=== PATIENT | male | born 1985 | race Caucasian/White ===

== ENCOUNTER 2020-06-07 17:00 | Outpatient (RCR) | payer MEDICAID, SELFPAY | END 2020-06-22 09:49 | disposition home or self-care (01) | LOC: HO.PTCHIC 17:00 | PROVIDERS: PCP Emergency Medicine; Visit Provider Emergency Medicine | DX: M25.561 Pain in right knee (principal); M25.551 Pain in right hip; G89.29 Other chronic pain | CPT/HCPCS: 97110; 97161 ==

== ENCOUNTER 2020-07-19 08:07 | Outpatient (REF) | payer MEDICAID, SELFPAY | END 2020-07-19 08:08 | disposition home or self-care (01) | LOC: HO.HOSX 08:07 | PROVIDERS: Visit Provider Orthopaedic Surgery | DX: Z13.89 Encounter for screening for other disorder (principal) ==

== ENCOUNTER 2020-08-02 08:27 | Outpatient (REF) | payer MEDICAID, SELFPAY ==
--- NOTE | ~2020-08-02 | XR_ITS ---
EXAMINATION: BILATERAL KNEE X-RAY CLINICAL INFORMATION: Pain COMPARISON: None TECHNIQUE: Standing AP view of both knees and lateral and sunrise view of the left knee FINDINGS: Left knee: Bone alignment is normal. No fracture or dislocation is seen. There is joint space narrowing at the medial femoral tibial joint. There is question of a subchondral lucency of the lateral aspect of the medial femoral condyle appreciated on the AP view only. There is a small joint effusion. Standing AP view of the right knee is unremarkable. XR/XR knee LT 2V IMPRESSION: Left knee: Medial femoral tibial joint space narrowing of the left knee. Question subchondral lucency of the lateral aspect of the medial femoral condyle. Unremarkable right knee.
--- NOTE | ~2020-08-02 | XR_ITS ---
EXAMINATION: BILATERAL KNEE X-RAY CLINICAL INFORMATION: Pain COMPARISON: None TECHNIQUE: Standing AP view of both knees and lateral and sunrise view of the left knee FINDINGS: Left knee: Bone alignment is normal. No fracture or dislocation is seen. There is joint space narrowing at the medial femoral tibial joint. There is question of a subchondral lucency of the lateral aspect of the medial femoral condyle appreciated on the AP view only. There is a small joint effusion. Standing AP view of the right knee is unremarkable. XR/XR knee standing BI IMPRESSION: Left knee: Medial femoral tibial joint space narrowing of the left knee. Question subchondral lucency of the lateral aspect of the medial femoral condyle. Unremarkable right knee.
== END 2020-08-02 08:28 | disposition home or self-care (01) ==
LOC: HO.HOSX 08:27
PROVIDERS: Visit Provider Orthopaedic Surgery
DX: M23.92 Unspecified internal derangement of left knee (principal)
CPT/HCPCS: 73560; 73565; 99202

== ENCOUNTER 2020-08-07 07:37 | Outpatient (REF) | payer MEDICAID, SELFPAY ==
--- NOTE | ~2020-08-07 | MR_ITS ---
EXAMINATION: MR KNEE WITHOUT CONTRAST, LEFT CLINICAL INFORMATION: Internal derangement of the left knee. Left knee medial pain. Clicking. Increased symptoms last 3-4 months. COMPARISON: Radiographs dated 08/02/2020. TECHNIQUE: MRI of the knee without contrast was performed using routine sequences on a high-field scanner. FINDINGS: MENISCI: Medial Meniscus: A complex flap tear propagates from the posterior root insertion through the anterior horn and is primarily longitudinal in orientation with displacement of the meniscal flap fragment peripherally and proximally, potentially a bucket-handle tear with peripheral displacement instead of lateral displacement. This flap fragment constitutes at least one half of the overall meniscal tissue. There is a superimposed horizontal tear of the orthotopic meniscal tissue at the posterior horn. Significant free edge fraying is present at the meniscal body and anterior horn. Surrounding soft tissues are edematous. A small multilocular parameniscal cyst is present at the meniscal body just deep to the MCL. Lateral Meniscus: Mild undersurface fraying is present of the posterior horn near the root insertion. No tears. LIGAMENTS: Cruciate: Intact Collateral: Edema signal around the MCL is likely reactive to the underlying meniscal abnormality. Collateral ligaments are intact. EXTENSOR MECHANISM:Intact ARTICULAR CARTILAGE/BONE: Patellofemoral Compartment: Minimal superficial chondral fissuring at the median ridge of the patella. Trochlear cartilage appears relatively well preserved. Medial Compartment Small to moderate-sized marginal osteophytes are present at the medial compartment. There is docw-or-zlbeiovs nonuniform articular cartilage loss at the medial half of the medial tibial plateau with more mild chondral thinning at the medial femoral condyle. Lateral Compartment: Tiny marginal osteophytes. Articular cartilage is normal. JOINT FLUID AND BURSAE: Trace joint fluid. No Funk's cyst. MR/MR knee LT wo con IMPRESSION: 1. Complex displaced longitudinal flap tear involving the majority of the medial meniscus. 2. Ilot-kg-cmkgxddn medial compartment osteoarthritis. More minimal osteoarthritis in the patellofemoral and lateral compartments. 3. Trace joint effusion. 4. Undersurface fraying at the posterior root insertion of the lateral meniscus. No tears.
== END 2020-08-07 07:38 | disposition home or self-care (01) ==
LOC: HO.MRI 07:37
PROVIDERS: Visit Provider Orthopaedic Surgery
DX: M23.92 Unspecified internal derangement of left knee (principal)
CPT/HCPCS: 73721

== ENCOUNTER → 2020-08-20 08:16 | Outpatient (BNVA) | payer MEDICAID, SELFPAY | PROVIDERS: PCP Internal Medicine; Visit Provider Orthopaedic Surgery | DX: S83.242A Other tear of medial meniscus, current injury, left knee, initial encounter (principal) | CPT/HCPCS: 99212 ==

== ENCOUNTER 2020-09-05 06:06 | Day surgery (SDC) | payer MEDICAID, SELFPAY ==
[2020-08-30 11:00] VITALS: BMI 44.6
--- NOTE | 2020-09-04 12:58 | HO.ANESPROP2 ---
Documented by User: Landy Rmney 09/04/20 12:59 HPI - Anesthesia Eval Consult details Narrative: 35yo M for Left Knee Arthroscopy PMFSH Past Medical History Medical History Depression Sleep apnea Family History Family History Mother No problems noted. Father No problems noted. Surgical History Surgical History History of tonsillectomy Hx of cholecystectomy Social History Social History Are you a primary client care manager to a significant other at home: No Do you presently have visiting nurse or other home services: No Alcohol intake: current Alcohol intake frequency: a few times a month Smoking Status: Never smoker Use of substances other than those prescribed or required for medical reasons: No Have you been hit, kicked, punched, or otherwise hurt by someone within the past year? If so, by whom?: No Advance Directives Information Provided: No Risk Factors Comment: has had past thoughts of harming self-states current medications help-advised to speak with PCP if feeling that medications do not help and encouraged to seek help JUAN for any new feelings. 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[employer] Allergies Allergy/AdvReac Type Severity Reaction Status Date / Time clindamycin [CLINDAMYCIN] Allergy Intermediate SWELLING Verified 08/30/20 11:06 Home Medications Medication Instructions Recorded Confirmed Last Taken Type cyanocobalamin (vitamin B-12) 2,500 mcg SUBLINGUAL DAILY 08/30/20 08/30/20 Unknown History [Vitamin B-12] hydroxyzine pamoate 50 mg PO BEDTIME 08/30/20 08/30/20 Unknown History multivitamin 1 tab PO DAILY 08/30/20 08/30/20 Unknown History nabumetone 750 mg PO BID 08/30/20 08/30/20 Unknown History trazodone 50 mg PO BID 08/30/20 08/30/20 Unknown History Exam Exam Date and Time: September 04, 2020 1258 Height,Weight and Vital Signs: Height 5 ft 7 in Weight 129.274 kg Assessment and Plan Assessment Anesthesia Assessment: Chart Reviewed Documented by User: Praful Shannon MD 09/05/20 08:06 [facility] Past Medical History Medical History Depression Sleep apnea Family History Family History Mother No problems noted. Father No problems noted. Surgical History Surgical History History of tonsillectomy Hx of cholecystectomy Social History Social History Are you a primary client care manager to a significant other at home: No Do you presently have visiting nurse or other home services: No Alcohol intake: current Alcohol intake frequency: a few times a month Smoking Status: Never smoker Use of substances other than those prescribed or required for medical reasons: No Have you been hit, kicked, punched, or otherwise hurt by someone within the past year? If so, by whom?: No Advance Directives Information Provided: No Risk Factors Comment: has had past thoughts of harming self-states current medications help-advised to speak with PCP if feeling that medications do not help and encouraged to seek help JUAN for any new feelings. 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[employer] Allergies Allergy/AdvReac Type Severity Reaction Status Date / Time clindamycin [CLINDAMYCIN] Allergy Intermediate SWELLING Verified 08/30/20 11:06 Home Medications Medication Instructions Recorded Confirmed Last Taken Type cyanocobalamin (vitamin B-12) 2,500 mcg SUBLINGUAL DAILY 08/30/20 08/30/20 Unknown History [Vitamin B-12] hydroxyzine pamoate 50 mg PO BEDTIME 08/30/20 08/30/20 Unknown History multivitamin 1 tab PO DAILY 08/30/20 08/30/20 Unknown History nabumetone 750 mg PO BID 08/30/20 08/30/20 Unknown History trazodone 50 mg PO BID 08/30/20 08/30/20 Unknown History Exam Airway Mallampati Class: III TM Dist: >3cm Neck ROM: Full Loose/Missing/Broken Teeth: No Heart: RRR Lungs: NL Assessment and Plan Assessment Anesthesia Assessment: Anesthesia Plan Discussed and Chart Reviewed Final Anesthetic Review NPO: Yes ASA Class: III Final Preanesthetic Review: No Changes in Pt Med Stat, Meds/Allgs Chart Reviewed, Consent Obtained/Reviewed and Anes Risks/Benef Reviewed Patient Risk: High Procedure Risk: Low Anesthetic Plan Anesthetic Plan: GA Disposition: Standard PACU
[2020-09-05] VITALS (16 sets, daily range): BP systolic 135–174; BP diastolic 57–104; PULSE 17–95; RESP 16–20; TEMP 36.5–36.8; O2SAT 95–100
[2020-09-05] MEDS: Lactated Ringers 1,000 ML 100 ML IVCONT (06:38)
--- NOTE | 2020-09-05 07:36 | MHC.SHP ---
Pre-Procedural Eval Section A The patient is an INPATIENT: No Changes since office visit: Yes Patient answered all questions; No Cold of Flu in the past 2 weeks, No New Medical Problems and No Changes in Medication The History & Physical has been completed within 30 days and I have reviewed it.: Yes Section B Chief Complaint: internal derangement of left knee Allergies: Allergies Allergy/AdvReac Type Severity Reaction Status Date / Time clindamycin [CLINDAMYCIN] Allergy Intermediate SWELLING Verified 08/30/20 11:06 Plan I have reviewed the history and physical and performed a pertinent physical examination on my patient. No changes have occurred unless specified.
--- NOTE | 2020-09-05 09:16 | P.BOP_ITS ---
Brief Operative Note Date of Service: 09/05/20 Pre-op diagnosis: left knee meniscal tear Post-op diagnosis: other (left knee bucket handle medial meniscus tear) Procedure: Left knee medial meniscus repair Implants: S&N fastfix 360 x3, Arthrex meniscal cinch x3 Surgeon: Jason Quintero MD Anesthesia: GETA and local Criminology Professor: Elzbieta Alcaraz Estimated blood loss (mL): 5 Tourniquet time (min): 58 IV fluids (mL): 1,000 Pathology: none sent Condition: stable Disposition: PACU
--- NOTE | 2020-09-05 09:19 | P.OP_ITS ---
Operative Note Operative Note Date of Service: 09/05/20 Narrative: Pre-op diagnosis: left knee meniscal tear Post-op diagnosis: other (left knee bucket handle medial meniscus tear) Procedure: Left knee medial meniscus repair Implants: S&N fastfix 360 x3, Arthrex meniscal cinch x3 Surgeon: Jason Quintero MD Anesthesia: GETA and local Emissions Repair Technician: Elzbieta Alcaraz Estimated blood loss (mL): 5 Tourniquet time (min): 58 IV fluids (mL): 1,000 Pathology: none sent Condition: stable Disposition: PACU Indications: THis is a 35 yo with a left medial meniscus tear. He was consented to undergo left knee arthroscopy. Procedure in detail: Patient was brought to the operating room placed supine on the arthroscopic table and prepped and draped in standard sterile fashion. A time-out was called to identify proper site proper procedure proper surgeon and IV antibiotics per weight were administered. I began by exsanguinating the limb and insufflating tourniquet to 300 mm Hg. Then made a standard anterolateral stab incision. knee was insufflated with water and 30 degree arthroscope was placed. There was one grade 2 area of cartilage damage in the central facet of the patella. The suprapatellar pouch was clean and the gutters were clean. I descended into the medial compartment where I made my medial portal under direct visualization. There was obvious of tear of the body and posterior horn of the medial meniscus that upon flexion displaced into the notch. This was bucket handle tear that was unstable. Because of his age I elected to repair it. It was reduceable. I used a shaver to debride the posterior edge of the plateau doown top bleeding bone. I then used 3 fast fix anchors and then 3 meniscal cinches to repair the meniscus. I was able to establish a good repair that was stable throughout a full arc of motion with reproduction of the meniscal anatomy. I used a combination of biter shaver and cautery to remove frayed portions of the meniscus. Once I was happy with this the ACL was examined and found to be intact and the lateral compartment also was without the need for intervention. I then removed all instrumentation and closed the portals with nylon sutures. 25 mL of 2% Marcaine with epinephrine was injected into the joint and the surrounding soft tissues. Patient was then placed in sterile dressing extubated brought recovery room stable condition. There were no known complications.
[2020-09-05] MEDS: HYDROmorphone HCl 0.5 MG/0.5 ML SYRINGE 0.25 MG IVPUSH ×2 (09:36→10:13)
[2020-09-05] MEDS: oxyCODONE HCl Immed Release 5 MG TABLET PO (10:08)
== END 2020-09-05 12:35 | disposition home or self-care (01) ==
PROVIDERS: PCP Internal Medicine; Visit Provider Orthopaedic Surgery
PROC: (CPT 29870; principal; 2020-09-05 07:30)
DX: S83.232A Complex tear of medial meniscus, current injury, left knee, initial encounter (principal); X58.XXXA Exposure to other specified factors, initial encounter; Y93.9 Activity, unspecified; Y92.9 Unspecified place or not applicable; Y99.8 Other external cause status; G47.30 Sleep apnea, unspecified; Z79.899 Other long term (current) drug therapy; Z88.1 Allergy status to other antibiotic agents
CPT/HCPCS: 29881; C1713; J0131; J0171; J0690; J1100; J1170; J1885; J2405; J3010

== ENCOUNTER → 2020-09-20 14:32 | Outpatient (BNVA) | payer MEDICAID, SELFPAY | PROVIDERS: Visit Provider Physician Assistant | DX: Z98.890 Other specified postprocedural states (principal) | CPT/HCPCS: 99212 ==

== ENCOUNTER → 2020-11-02 14:50 | Outpatient (BNVA) | payer MEDICAID, SELFPAY | PROVIDERS: Visit Provider Physician Assistant | DX: Z98.890 Other specified postprocedural states (principal) | CPT/HCPCS: 99212 ==

== ENCOUNTER 2020-12-12 17:00 | Outpatient (RCR) | payer MEDICAID, SELFPAY ==
--- NOTE | 2020-09-19 17:13 | MHC.PT.EP ---
[facility] [place] Office [place] Office [place] Office [address] Millie Rudolph [address] [phone] F: [phone] F: [phone] F: [phone] F: [phone] Physical Therapy Plan of Care Date of Evaluation: Date of Surgery: 09/05/20 Diagnosis: s/p L knee medial meniscus repair. Assessment: Frequency and Duration: The patient will be seen 2x/ wk x 6 wks. Short Term Goals: in 1 week: initiate HEP with evidence of compliance. In 3 week: full knee flexion achieved; initial 90 degrees. Custodial Goals: In 6 weeks: negotiated 1 fl of stairs with managed Sx. In 6 weeks: Pt will be able to walk 1 mile with managed Sx. In 6 weeks: improve L knee ext MMT to > 4+/5; initial: 4/5. Treatment Plan: Modalities to reduce pain, spasms and effusion. Manual therapy to restore motion and function. Therapeutic exercise to improve strength and flexibility. Neuromuscular re-education for posture and balance. Therapeutic activities to return to functional activities of daily living. Electronically signed by: Vivek Richard PT. Please sign and return to therapist. Thank you for your referral.
--- NOTE | 2021-01-29 18:22 | MHC.PT.DC ---
[facility] [place] Office [place] Office [place] Office [address] Millie Rudolph [address] [phone] F: [phone] F: [phone] F: [phone] F: [phone] Physical Therapy Discharge Report Diagnosis: s/p L knee medial meniscus repair. Date of Surgery: 09/05/20 Date of Evaluation: 09/19/20 Date of Discharge: 01/29/21 Treatments to Date: 13 Cancellations to Date: 2 No Shows to Date: 1 Discharge Status: Achieved Goals Improved Function Independent with HEP Discharge Summary: Electronically signed by: Vivek thomas PT. Please sign and return to therapist. Thank you for your referral.
== END 2021-01-29 18:24 | disposition home or self-care (01) ==
LOC: HO.PTCHIC 17:00
PROVIDERS: Visit Provider Physician Assistant
DX: Z98.890 Other specified postprocedural states (principal)
CPT/HCPCS: 97014; 97110; 97112; 97116; 97161; 97530

== ENCOUNTER → 2020-12-24 14:20 | Outpatient (BNVA) | payer MEDICAID, SELFPAY | PROVIDERS: Visit Provider Orthopaedic Surgery | DX: Z98.890 Other specified postprocedural states (principal) | CPT/HCPCS: 99212 ==

== ENCOUNTER → 2021-01-01 08:42 | Outpatient (BNVA) | payer MEDICAID, SELFPAY | PROVIDERS: PCP Internal Medicine; Visit Provider Psychiatry & Neurology Neurology | DX: G47.33 Obstructive sleep apnea (adult) (pediatric) (principal) | CPT/HCPCS: 99202 ==

== ENCOUNTER 2021-02-11 07:05 | Emergency (ER) | payer MEDICAID, SELFPAY ==
--- NOTE | 2021-02-11 | ECG_ITS ---
Test Reason : CP Blood Pressure : / mmHG Vent. Rate : 075 BPM Atrial Rate : 075 BPM P-R Int : 152 ms QRS Dur : 090 ms QT Int : 370 ms P-R-T Axes : 035 047 009 degrees QTc Int : 413 ms Normal sinus rhythm Normal ECG No previous ECGs available Referred By: Chery Garcia Electronically Signed By:MADY TERAN
--- NOTE | ~2021-02-11 | XR_ITS ---
EXAMINATION: XR CHEST CLINICAL INFORMATION: Chest pain COMPARISON: None TECHNIQUE: Frontal view of the chest was obtained. FINDINGS: The lungs are well-expanded and clear. The heart size and pulmonary vascularity is normal. No gross bony abnormality. XR/XR chest 1V IMPRESSION: Unremarkable chest exam.
[2021-02-11 09:29] VITALS: BP 124/91; PULSE 74; RESP 18; TEMP 36.4; O2SAT 96; BMI 45.4
[2021-02-11 14:11] LABS: MANUAL DIFF FLAG NO
[2021-02-11 14:14] LABS: Basophils Percent Auto 0.3 % (0-2); Eosinophils Absolute Auto 0.1 X10*3/uL (0.0-0.4); Hematocrit 45.5 % (42-52); Hemoglobin 14.7 g/dl (14.0-18.0); Imm Gran Abs Auto 0.04 X10*3/uL (0.00-0.03); Imm Gran Pct Auto 0.3 % (0.0-0.4); Lymphocytes Absolute Auto 3.7 X10*3/uL (1.2-4.9); Lymphocytes Percent Auto 32.1 % (20-40); Mean Corpuscular HGB Conc 32.3 g/dl (31.0-36.0); Mean Corpuscular Hemoglobin 26.9 pg (27.0-33.0); Mean Corpuscular Volume 83.2 fL (80-98); Mean Platelet Volume 10.1 fL (9.4-12.4); Monocytes Absolute Auto 0.8 X10*3/uL (0.1-1.2); Monocytes Percent Auto 6.7 % (2-11); Neutrophils Absolute Auto 6.9 X10*3/uL (2.0-8.3); Neutrophils Percent Auto 59.6 % (45-73); Platelet Count 291 X10*3/uL (160-400); Red Blood Count 5.47 X10*6/uL (4.60-5.80); Red Cell Distribution Width 13.2 % (11.0-16.0); White Blood Count 11.6 X10*3/uL (4.8-10.8)
[2021-02-11 14:38] LABS: Anion Gap 11 (12-20); Blood Urea Nitrogen 10 mg/dL (9-16); Calcium 9.9 mg/dL (8.4-10.2); Carbon Dioxide 31 mmol/L (22-29); Chloride 104 mmol/L (96-108); Creatinine Clr Calc Pharmacy 138.5; Estimated Glomerular Filt Rate > 60; Glucose Random 91 mg/dL (60-115); Potassium 4.5 mmol/L (3.3-5.1); Sodium 141 mmol/L (135-145)
[2021-02-11 14:45] LABS: Troponin-I High Sensitivity < 3.5 ng/L (<3.5-35.0)
[2021-02-11 16:02] VITALS: BP 148/76; PULSE 66; RESP 16; O2SAT 98
--- NOTE | 2021-02-11 16:04 | ED.CHESTPAIN ---
HPI - Chest Pain General Chief Complaint: Chest Pain Stated Complaint: CHEST PAIN Time Seen by Provider: 02/11/21 16:01 Related Data Home Medications Medication Instructions Recorded Confirmed cyanocobalamin (vitamin B-12) 2,500 mcg SUBLINGUAL DAILY 08/30/20 08/30/20 2,500 mcg sublingual tablet (Vitamin B-12) hydroxyzine pamoate 50 mg capsule 50 mg PO BEDTIME 08/30/20 08/30/20 multivitamin 1 tab PO DAILY 08/30/20 08/30/20 nabumetone 750 mg tablet 750 mg PO BID 08/30/20 08/30/20 trazodone 50 mg tablet 50 mg PO BID 08/30/20 08/30/20 Previous Rx's Medication Instructions Recorded naproxen 500 mg tablet,delayed 500 mg PO BID PRN 30 Days #60 tab 09/20/20 release (EC-Naprosyn) Allergies Allergy/AdvReac Type Severity Reaction Status Date / Time clindamycin [CLINDAMYCIN] Allergy Intermediate SWELLING Verified 01/01/21 08:49 [facility] Past Medical History Medical History Depression Sleep apnea Surgical History History of tonsillectomy Hx of cholecystectomy Family History Family History Mother No problems noted. Father No problems noted. 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 He reports the pain radiates to his left arm. Denies any other symptoms complaints or concerns at this time Patient had labs done in triage and all appear within normal limits. Therefore a 2nd troponin ordered at this time. Patient was sent back to the waiting room for further evaluation treatment to the main ED. MDM - Chest Pain Lab Data Result diagrams: 02/11/21 14:06 02/11/21 14:06 Labs: Lab Results 02/11/21 02/11/21 02/11/21 Range/Units 14:06 14:06 14:06 WBC 11.6 H (4.8-10.8) X10*3/uL RBC 5.47 (4.60-5.80) X10*6/uL Hgb 14.7 (14.0-18.0) g/dl Hct 45.5 (42-52) % MCV 83.2 (80-98) fL MCH 26.9 L (27.0-33.0) pg MCHC 32.3 (31.0-36.0) g/dl RDW 13.2 (11.0-16.0) % Plt Count 291 (160-400) X10*3/uL MPV 10.1 (9.4-12.4) fL Immature Gran % (Auto) 0.3 (0.0-0.4) % Neut % (Auto) 59.6 (45-73) % Lymph % (Auto) 32.1 (20-40) % Marshall % (Auto) 6.7 (2-11) % Eos % (Auto) 1.0 (0-4) % Baso % (Auto) 0.3 (0-2) % Lymph # (Auto) 3.7 (1.2-4.9) X10*3/uL Marshall # (Auto) 0.8 (0.1-1.2) X10*3/uL Eos # (Auto) 0.1 (0.0-0.4) X10*3/uL Baso # (Auto) 0.0 (0.0-0.2) X10*3/uL Abs Immat Gran (auto) 0.04 H (0.00-0.03) X10*3/uL Absolute Neuts (auto) 6.9 (2.0-8.3) X10*3/uL Absolute Nucleated RBC 0.000 (0.0-0.012) X10*3/uL Nucleated RBC % (auto) 0.0 (0.0-0.2) /100WBC Sodium 141 (135-145) mmol/L Potassium 4.5 (3.3-5.1) mmol/L Chloride 104 (96-108) mmol/L Carbon Dioxide 31 H (22-29) mmol/L Anion Gap 11 L (12-20) BUN 10 (9-16) mg/dL Creatinine 0.99 (0.5-1.4) mg/dL Estim Creat Clear Calc 138.5 Estimated GFR > 60 Random Glucose 91 (60-115) mg/dL Calcium 9.9 (8.4-10.2) mg/dL Troponin I High Sens < 3.5 (<3.5-35.0) ng/L Discharge Plan Discharge Clinical Impression: Chest pain Patient Disposition: Elopement Prescriptions: No Action multivitamin Tablet 1 tab PO DAILY RF: 0 cyanocobalamin (vitamin B-12) [Vitamin B-12] 2,500 mcg Tablet, Sublingual 2,500 mcg SUBLINGUAL DAILY RF: 0 nabumetone 750 mg Tablet 750 mg PO BID RF: 0 trazodone 50 mg Tablet 50 mg PO BID RF: 0 hydroxyzine pamoate 50 mg Capsule 50 mg PO BEDTIME RF: 0 naproxen [EC-Naprosyn] 500 mg tablet,delayed release (DR/EC) 500 mg PO BID PRN (Reason: pain) 30 Days Qty: 60 RF: 0 Discharge Date/Time: 02/11/21 17:08
== END 2021-02-11 17:08 | disposition left against medical advice (07) ==
PROVIDERS: Emergency Provider Emergency Medicine; PCP Internal Medicine
DX: R07.9 Chest pain, unspecified (principal); Z79.899 Other long term (current) drug therapy
CPT/HCPCS: 36415; 71045; 80048; 84484; 85025; 93005; 99283

== ENCOUNTER → 2021-04-04 14:33 | Outpatient (BNVA) | payer MEDICAID, SELFPAY | PROVIDERS: PCP Internal Medicine; Visit Provider Orthopaedic Surgery | DX: Z98.890 Other specified postprocedural states (principal) | CPT/HCPCS: 99212 ==

== ENCOUNTER → 2021-05-02 08:18 | Outpatient (BNVA) | payer MEDICAID, SELFPAY | PROVIDERS: PCP Internal Medicine; Visit Provider Orthopaedic Surgery | DX: Z98.890 Other specified postprocedural states (principal) | CPT/HCPCS: 99212 ==

== ENCOUNTER → 2021-07-28 20:35 | Outpatient (REF) | payer MEDICAID, SELFPAY | LOC: HO.SL 20:35 | PROVIDERS: PCP Internal Medicine; Visit Provider Internal Medicine | DX: G47.33 Obstructive sleep apnea (adult) (pediatric) (principal) | CPT/HCPCS: 95810 ==

== ENCOUNTER → 2021-08-21 14:59 | Outpatient (BNVA) | payer MEDICAID, SELFPAY | PROVIDERS: PCP Internal Medicine; Referring Provider Internal Medicine; Visit Provider Internal Medicine | DX: R07.2 Precordial pain (principal); R94.31 Abnormal electrocardiogram [ECG] [EKG] | CPT/HCPCS: 93005; 99202 ==

== ENCOUNTER → 2022-05-05 15:09 | Outpatient (BNVA) | payer MEDICAID, SELFPAY | PROVIDERS: PCP Internal Medicine; Visit Provider Physician Assistant Surgical | DX: Z11.0 Encounter for screening for intestinal infectious diseases (principal) | CPT/HCPCS: 99211 ==

== ENCOUNTER 2022-05-05 17:46 | Outpatient (REF) | payer MEDICAID, SELFPAY ==
[2022-05-06 15:24] LABS: H Pylori Breath Test Negative (Negative)
== END 2022-05-05 17:47 | disposition home or self-care (01) ==
LOC: HO.LNP 17:46
PROVIDERS: Visit Provider Surgery
DX: E66.01 Morbid (severe) obesity due to excess calories (principal); G47.33 Obstructive sleep apnea (adult) (pediatric); Z11.0 Encounter for screening for intestinal infectious diseases
CPT/HCPCS: 83013

== ENCOUNTER 2022-05-14 16:10 | Outpatient (REF) | payer MEDICAID, SELFPAY ==
--- NOTE | ~2022-05-14 | XR_ITS ---
EXAMINATION: XR CHEST CLINICAL INFORMATION: Obesity COMPARISON: Previous chest x-ray January 2021 TECHNIQUE: 2 views of the chest were obtained. FINDINGS: The cardiac and mediastinal contours are stable. There is slight elevation of the right hemidiaphragm that is stable. The lungs are clear. There is no pleural effusion or pneumothorax. Degenerative changes of the spine. XR/XR chest 2V IMPRESSION: No evidence for acute disease in the chest.
[2022-05-14 16:36] LABS: MANUAL DIFF FLAG NO
[2022-05-14 16:44] LABS: Basophils Percent Auto 0.4 % (0-2); Eosinophils Absolute Auto 0.1 X10*3/uL (0.0-0.4); Eosinophils Percent Auto 0.7 % (0-4); Hematocrit 44.5 % (42.0-52.0); Hemoglobin 14.4 g/dl (14.0-18.0); Imm Gran Abs Auto 0.02 X10*3/uL (0.00-0.03); Imm Gran Pct Auto 0.2 % (0.0-0.4); Lymphocytes Absolute Auto 2.2 X10*3/uL (1.2-4.9); Mean Corpuscular HGB Conc 32.4 g/dl (31.0-36.0); Mean Corpuscular Hemoglobin 27.1 pg (27.0-33.0); Mean Corpuscular Volume 83.6 fL (80.0-98.0); Mean Platelet Volume 10.4 fL (9.4-12.4); Monocytes Absolute Auto 0.6 X10*3/uL (0.1-1.2); Neutrophils Absolute Auto 5.3 x10*3/uL (2.0-8.3); Neutrophils Percent Auto 64.7 % (45-73); Platelet Count 284 X10*3/uL (160-400); Red Blood Count 5.32 X10*6/uL (4.60-5.80); Red Cell Distribution Width 13.1 % (11.0-16.0); White Blood Count 8.2 X10*3/uL (4.8-10.8)
[2022-05-14 17:15] LABS: Estimated Average Glucose 103 mg/dL; Hemoglobin A1c % 5.2 %
[2022-05-14 18:40] LABS: Alanine Aminotransferase 127 U/L (0-40); Albumin Level 4.9 g/dL (3.5-5.0); Alkaline Phosphatase 49 U/L (39-117); Anion Gap 14 (12-20); Aspartate Amino Transferase 62 U/L (5-37); Bilirubin Total 1.3 mg/dL (0.0-1.0); Blood Urea Nitrogen 12 mg/dL (9-16); C Reactive Protein 0.48 mg/dL (< or = 0.50); Calcium 9.7 mg/dL (8.4-10.2); Carbon Dioxide 27 mmol/L (22-29); Chloride 104 mmol/L (96-108); Cholesterol 131 mg/dL; Estimated Glomerular Filt Rate > 60; Ferritin 346 ng/mL (20-250); Glucose Random 96 mg/dL (60-115); HDL Cholesterol 27 mg/dL; Insulin 6 uU/mL (2-29); Iron 84 mcg/dL (45-160); LDL Cholesterol Calculated 90 mg/dl; Percent Iron Saturation 28 % (15-50); Potassium 4.4 mmol/L (3.3-5.1); Sodium 141 mmol/L (135-145); TSH reflex Free T4 1.31 uIU/mL (0.32-4.0); Total Iron Binding Capacity 295 mcg/dL (228-428); Total Protein 6.9 g/dL (6.5-8.0); Triglycerides 74 mg/dL; Unsaturated Iron Binding 211 ug/dL; Vitamin D 25-OH Total 13.4 ng/mL (>30)
[2022-05-14 18:54] LABS: Folate 14.6 ng/mL (> or = 4.0); Vitamin B12 606 pg/mL (200-900)
[2022-05-15 15:24] LABS: Calcium (PTHI) 9.5 mg/dL (8.6-10.3); PTHI 57 pg/mL (16-77)
[2022-05-20 02:09] LABS: Zinc 83 mcg/dL (60-130)
[2022-05-20 17:03] LABS: Vitamin A 43 mcg/dL (38-98)
[2022-05-24 14:48] LABS: Vitamin B1 8 nmol/L (8-30)
== END 2022-05-14 16:11 | disposition home or self-care (01) ==
LOC: HO.LAB 16:10
PROVIDERS: PCP Internal Medicine; Visit Provider Surgery
DX: E66.01 Morbid (severe) obesity due to excess calories (principal); G47.33 Obstructive sleep apnea (adult) (pediatric)
CPT/HCPCS: 36415; 71046; 80053; 80061; 82306; 82607; 82728; 82746; 83036; 83525; 83540; 83970; 84425; 84443; 84590; 84630; 85025; 86140

== ENCOUNTER → 2022-05-15 15:22 | Outpatient (REF) | payer MEDICAID, SELFPAY ==
--- NOTE | 2022-05-15 15:27 | ECG_ITS ---
Test Reason : Morbid Obesity Blood Pressure : / mmHG Vent. Rate : 076 BPM Atrial Rate : 076 BPM P-R Int : 144 ms QRS Dur : 082 ms QT Int : 366 ms P-R-T Axes : 043 060 019 degrees QTc Int : 411 ms Normal sinus rhythm Normal ECG When compared with ECG of 11-FEB-2021 07:16, No significant change was found Referred By: Aj Painting Electronically Signed By:LALO DIEZ
== END ==
LOC: HO.CARD 15:22
PROVIDERS: PCP Internal Medicine; Visit Provider Surgery
DX: E66.01 Morbid (severe) obesity due to excess calories (principal); G47.33 Obstructive sleep apnea (adult) (pediatric)
CPT/HCPCS: 93005

== ENCOUNTER → 2022-05-19 08:11 | Outpatient (BNVA) | payer MEDICAID, SELFPAY | PROVIDERS: PCP Internal Medicine; Visit Provider Surgery | DX: Z13.89 Encounter for screening for other disorder (principal) ==

== ENCOUNTER → 2022-06-20 08:26 | Outpatient (BNVA) | payer MEDICAID, SELFPAY | PROVIDERS: PCP Internal Medicine; Visit Provider Surgery | DX: Z13.89 Encounter for screening for other disorder (principal) ==

== ENCOUNTER 2023-01-15 11:22 | Outpatient (REF) | payer MEDICAID, SELFPAY ==
--- NOTE | ~2023-01-15 | XR_ITS ---
EXAMINATION: XR HAND/WRIST, RIGHT XR HAND/WRIST, LEFT CLINICAL INFORMATION: Rheumatoid arthritis; bilateral hand and wrist pain without injury. COMPARISON: Radiographs dated 08/14/2018. TECHNIQUE: PA, lateral, and oblique views of the each hand and wrist. FINDINGS: RIGHT HAND/WRIST: Bony alignment and mineralization are normal. No fracture. Alignment is anatomic. Joint spaces are maintained. There are mild periarticular calcifications of the interphalangeal joint of the thumb and the fifth distal interphalangeal joint. No erosions or soft tissue calcifications. LEFT HAND/WRIST: The bones and soft tissues are normal. No fracture. A tiny accessory ossification center is redemonstrated of the ulnar styloid. Alignment is anatomic. Joint spaces are maintained. No erosions or soft tissue calcifications. XR/XR hand wrist RT IMPRESSION: 1. There is very mild osteoarthritic change of the interphalangeal joint of the right thumb and of the right fifth distal interphalangeal joint. 2. Normal radiographs of the left hand and wrist.
--- NOTE | ~2023-01-15 | XR_ITS ---
EXAMINATION: XR HAND/WRIST, RIGHT XR HAND/WRIST, LEFT CLINICAL INFORMATION: Rheumatoid arthritis; bilateral hand and wrist pain without injury. COMPARISON: Radiographs dated 08/14/2018. TECHNIQUE: PA, lateral, and oblique views of the each hand and wrist. FINDINGS: RIGHT HAND/WRIST: Bony alignment and mineralization are normal. No fracture. Alignment is anatomic. Joint spaces are maintained. There are mild periarticular calcifications of the interphalangeal joint of the thumb and the fifth distal interphalangeal joint. No erosions or soft tissue calcifications. LEFT HAND/WRIST: The bones and soft tissues are normal. No fracture. A tiny accessory ossification center is redemonstrated of the ulnar styloid. Alignment is anatomic. Joint spaces are maintained. No erosions or soft tissue calcifications. XR/XR hand wrist LT IMPRESSION: 1. There is very mild osteoarthritic change of the interphalangeal joint of the right thumb and of the right fifth distal interphalangeal joint. 2. Normal radiographs of the left hand and wrist.
[2023-01-15 12:39] LABS: MANUAL DIFF FLAG NO
[2023-01-15 13:50] LABS: Basophils Absolute Auto 0.1 X10*3/uL (0.0-0.2); Basophils Percent Auto 0.5 % (0-2); Eosinophils Absolute Auto 0.1 X10*3/uL (0.0-0.4); Hematocrit 46.2 % (42.0-52.0); Imm Gran Abs Auto 0.04 X10*3/uL (0.00-0.03); Imm Gran Pct Auto 0.4 % (0.0-0.4); Lymphocytes Absolute Auto 1.9 X10*3/uL (1.2-4.9); Lymphocytes Percent Auto 19.9 % (20-40); Mean Corpuscular HGB Conc 32.5 g/dl (31.0-36.0); Mean Corpuscular Hemoglobin 26.5 pg (27.0-33.0); Mean Corpuscular Volume 81.6 fL (80.0-98.0); Mean Platelet Volume 10.6 fL (9.4-12.4); Monocytes Absolute Auto 0.7 X10*3/uL (0.1-1.2); Monocytes Percent Auto 7.5 % (2-11); Neutrophils Absolute Auto 6.7 x10*3/uL (2.0-8.3); Neutrophils Percent Auto 70.7 % (45-73); Platelet Count 341 X10*3/uL (160-400); Red Blood Count 5.66 X10*6/uL (4.60-5.80); Red Cell Distribution Width 13.2 % (11.0-16.0); White Blood Count 9.4 X10*3/uL (4.8-10.8)
[2023-01-15 14:16] LABS: Rheumatoid Factor 90.1 IU/mL (<15.0)
[2023-01-15 14:21] LABS: Alanine Aminotransferase 87 U/L (0-40); Albumin Level 4.7 g/dL (3.5-5.0); Alkaline Phosphatase 51 U/L (39-117); Anion Gap 11 (12-20); Aspartate Amino Transferase 69 U/L (5-37); Bilirubin Total 0.8 mg/dL (0.0-1.0); Blood Urea Nitrogen 13 mg/dL (9-16); C Reactive Protein 1.28 mg/dL (< or = 0.50); Calcium 10.2 mg/dL (8.4-10.2); Carbon Dioxide 29 mmol/L (22-29); Chloride 103 mmol/L (96-108); Estimated Glomerular Filt Rate > 60; Glucose Random 94 mg/dL (60-115); Potassium 4.1 mmol/L (3.3-5.1); Sodium 139 mmol/L (135-145); Total Protein 7.5 g/dL (6.5-8.0)
[2023-01-15 14:47] LABS: Erythrocyte Sedimentation Rate 2 MM/HR (0-15)
[2023-01-16 04:24] LABS: HBS Num1 0.73 mIU/mL (0-7.99); HBc Num1 0.13 S/CO (0.00-0.79); HBsAGNum1 0.35 S/CO (0.00-0.99); Hepatitis A Antibody IgM 0.13 Index (0-0.79); Hepatitis B Core Antibody Nonreactive (Nonreactive); Hepatitis B Surface Antigen Negative (Negative); ~HepC Num1 0.19 S/CO (0.00-0.79); ~Hepatitis A Antibody IgM Nonreactive (Nonreactive); ~Hepatitis B Surface Antibody NONREACTIVE (Nonreactive); ~Hepatitis C Antibody Nonreactive (Nonreactive)
[2023-01-16 12:18] LABS: Cyclic Citrullinated Peptide <16 UNITS
[2023-01-16 13:44] LABS: Prot Elec - Albumin 4.6 g/dL (3.8-4.8); Prot Elec - Alpha1 0.3 g/dL (0.2-0.3); Prot Elec - Alpha2 0.9 g/dL (0.5-0.9); Prot Elec - Beta 1 0.4 g/dL (0.4-0.6); Prot Elec - Beta 2 0.4 g/dL (0.2-0.5); Prot Elec - Gamma 0.7 g/dL (0.8-1.7); Prot Elec - Total Protein 7.3 g/dL (6.1-8.1)
[2023-01-16 16:18] LABS: IgA 194 mg/dL (47-310); IgG 804 mg/dL (600-1640); IgM 41 mg/dL (50-300)
[2023-01-17 16:34] LABS: TS Negative Control Passed; TS Panel A 0; TS Panel B 2; TS Positive Control Passed; TSpotTB Negative (Negative)
== END 2023-01-15 11:23 | disposition home or self-care (01) ==
LOC: HO.LAB 11:22
PROVIDERS: PCP Internal Medicine; Visit Provider Student in an Organized Health Care Education/Training Program
DX: Z11.59 Encounter for screening for other viral diseases (principal); Z11.7 Encounter for testing for latent tuberculosis infection; M06.9 Rheumatoid arthritis, unspecified; R76.8 Other specified abnormal immunological findings in serum
CPT/HCPCS: 36415; 73110; 73130; 80053; 82784; 84165; 85025; 85652; 86140; 86200; 86334; 86431; 86481; 86704; 86706; 86709; 86803; 87340; 99202

== ENCOUNTER 2023-01-15 11:22 | Outpatient (AMB) | payer MEDICAID, SELFPAY ==
--- NOTE | 2023-01-15 11:24 | A.OFFVIS_ITS ---
Intake Vital Signs 01/15/23 11:25 Height 5 ft 7 in Weight 283 lb 15.286 oz BMI 44.5 BP 136/80 Blood Pressure Location Rt brachial Position Sitting Pulse 96 Pulse Source Pulse Oximeter Temp 96.3 F L Temp Source Skin Pulse Oximetry (%) 97 Intake Visit Reasons: +RF Intake Note: New pt presents today for consult to discuss abnormal lab Right Of Way Worker Required: No Accompanied by: Self / Same As Patient Allergies clindamycin [CLINDAMYCIN] Allergy (Intermediate, Verified 01/15/23 11:27) SWELLING Medication List - Last Reconciled 01/15/23 by Ivy Connelly MD bupropion HCl 150 mg PO DAILY hydroxyzine HCl 25 - 50 mg PO Q8H PRN ziprasidone HCl 40 mg PO BID HPI HPI Comments History of Present Illness Details This is a 37-year-old male who presents for evaluation of a positive rheumatoid factor. Patient has been having numbness of both hands. Especially the ring and little fingers. This morning stiffness of his hands lasting around 30 minutes to 1h. He does not take anything for pain. The numbness is worse at nighttime and in the morning. 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 He works with his hands. Has been doing this job for years now. He denies any swollen or tender joints. Denies any skin rashes. There is no history of DVT/PE. Denies sicca symptoms. He is unaware of any family history of autoimmune rheumatic disease. [facility] Medical History (Updated 01/15/23 @ 12:17 by Ivy Connelly MD) Anxiety Cubital tunnel syndrome, bilateral Depression DJD (degenerative joint disease) Encounter for testing for latent tuberculosis infection Morbid obesity Rheumatoid arthritis Screening for viral disease Sleep apnea Surgical History History of tonsillectomy Hx of cholecystectomy Hx of knee surgery Family History Mother Diabetes Arthritis Father No problems noted. Brother No problems noted. Brother No problems noted. Sister No problems noted. Sister No problems noted. Son ADHD Son No problems noted. Daughter No problems noted. Daughter No problems noted. 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 Review of Systems Const Reports weight gain Eyes Reports blurry vision Musc Reports arthralgias, Reports numbness, Reports stiffness and Reports tingling Neuro Reports numbness and Reports tingling Psych Reports anxiety and Reports depression Physical Exam Vital Signs: Last Vital Signs Temp 96.3 F L 01/15/23 11:25 Pulse 96 01/15/23 11:25 BP 136/80 01/15/23 11:25 Pulse Ox 97 01/15/23 11:25 BMI result Body Mass Index 44.5 Const General: cooperative, healthy appearing and comfortable Nutritional Appearance: obese morbidly obese Orientation/consciousness: patient oriented x3 Limitations: no limitations HEENT Head: Yes normocephalic and Yes atraumatic Mouth: moist mucous membranes Resp Effort & Inspection: normal respiratory effort and able to speak in complete sentences Auscultation: clear to auscultation bilaterally Cardio Rate: regular rate GI Inspection: No distended Palpation (GI): Soft to palpation and nontender Neuro General: patient oriented x3 Extrem Other: Bilateral wrist pain with full flexion. No swollen or tender joints Osteoarthritic changes of both hands with prominent Heberden's nodes and squaring of 1st CMC joints bilaterally No tender extensor or flexor tendons bilaterally in both hands Negative MCP squeeze test bilaterally Negative Tinel sign bilaterally Mild elbow pain with full extension bilaterally No ankle or MTP swelling or tenderness bilateral Assessment & Plan Assessment & Plan (1) Rheumatoid factor positive: Code(s): R76.8 - Other specified abnormal immunological findings in serum Plan: This is a 37-year-old male who presents for evaluation of positive rheumatoid factor. Over the last year patient has been having tingling and numbness of his hands especially the little and ring fingers as well as morning stiffness of his hands and wrists lasting 30 minutes to 1 hour. Labs showed a positive rheumatoid factor. Will order comprehensive serology to screen for underlying autoimmune rheumatic disease. Check bilateral hand x-rays as well as bilateral hand and wrist ultrasound to rule out tenosynovitis. Will Order bilateral upper extremity EMG to evaluate for cubital tunnel/carpal tunnel syndrome Plan I spent 47 minutes reviewing patient's chart, evaluating patient, ordering diagnostic workup, counseling patient and documenting in the chart Orders: Orders US extremity nonvascular Today M06.9 - Rheumatoid arthritis, unspecified Cyclic Citrullinated Peptide Today M06.9 - Rheumatoid arthritis, unspecified Comprehensive Met. Panel Today M06.9 - Rheumatoid arthritis, unspecified C Reactive Protein Today M06.9 - Rheumatoid arthritis, unspecified Rheumatoid Factor Today M06.9 - Rheumatoid arthritis, unspecified Complete Blood Count Auto Diff Today M06.9 - Rheumatoid arthritis, unspecified Erythrocyte Sedimentation Rate Today M06.9 - Rheumatoid arthritis, unspecified Immunofixation Pnl, Serum Today M06.9 - Rheumatoid arthritis, unspecified Protein Electrophoresis, Serum Today M06.9 - Rheumatoid arthritis, unspecified Hepatitis A,B,C Profile Today Z11.59 - Encounter for screening for other viral diseases T Spot TB Today Z11.7 - Encounter for testing for latent tuberculosis infection XR hand wrist LT Today M06.9 - Rheumatoid arthritis, unspecified XR hand wrist RT Today M06.9 - Rheumatoid arthritis, unspecified NE electromyogram (EMG) Today G56.23 - Lesion of ulnar nerve, bilateral upper limbs Medications: New prednisone Take 2 tabs daily with breakfast for 1 week then 1 tab daily for 1 week then stop 21 tabs 0RF Coding Level of Care Code New Pt Level 4 (97419) Diagnoses Rheumatoid factor positive R76.8
[2023-01-15 11:25] VITALS: BP 136/80; PULSE 96; TEMP 35.7; O2SAT 97; BMI 44.5
== END 2023-01-15 12:06 | disposition home or self-care (01) ==
PROVIDERS: PCP Internal Medicine; Visit Provider Student in an Organized Health Care Education/Training Program
DX: R76.8 Other specified abnormal immunological findings in serum (principal)
CPT/HCPCS: 99204

== ENCOUNTER 2023-01-20 12:59 | Outpatient (AMB) | payer MEDICAID, SELFPAY ==
[2023-01-20 13:06] VITALS: BP 130/82; PULSE 98; O2SAT 98; BMI 44.3
--- NOTE | 2023-01-20 13:06 | MHC.OFFVIS ---
Intake Vital Signs 01/20/23 13:06 Height 5 ft 7 in Weight 283 lb BMI 44.3 BP 130/82 Blood Pressure Location Rt brachial Position Sitting Pulse 98 Pulse Source Pulse Oximeter Pulse Oximetry (%) 98 Oxygen Delivery Method Room Air Intake Visit Reasons: E-SEASONAL GREENERY BUNDLER: VANESSA - Confirmed Intake Note: Patient presents for new patient VANESSA. Patient states I have a CPAP machine use it here and there not all the time. Allergies clindamycin [CLINDAMYCIN] Allergy (Intermediate, Verified 01/20/23 13:10) SWELLING HPI HPI Comments History of Present Illness Details 37 y/o male patient presents for new in-person visit to manage VANESSA. Pt had PSG sleep study and start CPAP but he did not compliant at the first time. He had a repeat sleep study done and wanted to try CPAP again, but his insurance did not cover it. The PSG sleep study result was significant for mild degree of sleep apnea, with increased severity in REM sleep. The total AHI was 6/hr, REM AHI was 22/hr and oxygen alta was 84%. Pt was advised to start APAP [id number]. He purchased CPAP from his friend and start using the CPAP 2-3 months ago. He sleeps 6-7 hours at night, but wakes up more frequently and still has excessive daytime sleepiness. He takes a nap frequently, almost every day. He states that his current CPAP setting is [id number]. He gained 30 lb since the last sleep study. Pt also reports difficulty falling asleep. He takes a nap for an hour daily, uses phone before bedtime. He can have headache in the morning. Sleep hygiene questionnaire: What is your usual sleep routine? Usual bedtime is at 9-10 pm; Usual wake up time is at 6 am. Do you take naps? Yes, almost every day for an hour. Is your sleep environment cool, dark, and quiet? Yes. Do you exercise? No. Do you take caffeine or other stimulants? Energy drink in the morning. Do you use electronics in bed? Yes, playing with phone. What is your work schedule? 7-3:30 pm. [facility] Medical History (Updated 01/20/23 @ 14:33 by Kenia Segovia CNP) Anxiety Cubital tunnel syndrome, bilateral Depression DJD (degenerative joint disease) Encounter for testing for latent tuberculosis infection Morbid obesity Rheumatoid arthritis Screening for viral disease Sleep apnea Surgical History History of tonsillectomy Hx of cholecystectomy Hx of knee surgery Family History Mother Diabetes Arthritis Father No problems noted. Brother No problems noted. Brother No problems noted. Sister No problems noted. Sister No problems noted. Son ADHD Son No problems noted. Daughter No problems noted. Daughter No problems noted. 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 Review of Systems Const All systems reviewed & are unremarkable except as noted in HPI and below ENT Reports Normal hearing present Neuro Reports Normal hearing present Physical Exam Vital Signs: Last Vital Signs Pulse 98 01/20/23 13:06 BP 130/82 01/20/23 13:06 Pulse Ox 98 01/20/23 13:06 Oxygen Delivery Method Room Air 01/20/23 13:06 BMI result Body Mass Index 44.3 Const General: cooperative Nutritional Appearance: obese Orientation/consciousness: patient oriented x3 Eyes Pupils: Equal, round and reactive pupils present Neck Neck: Yes full ROM and Yes supple Resp Effort & Inspection: normal respiratory effort and able to speak in complete sentences Neuro General: patient oriented x3, gait normal and moves all extremities Cranial nerves: Yes Equal, round and reactive pupils present, Yes Bilaterally intact EOM present, Yes Normal facial strength present, Yes Midline tongue present, Yes Symmetric palate elevation present and Yes Normal hearing present Cognition (Neuro): normal cognition Gait exam (Neuro): Normal gait present Motor exam (neuro): 5/5 motor strength present throughout and Pronator motor function not present Psych Appearance: grossly normal Mental Status: mental status grossly normal Affect: normal affect Attitude: cooperative Assessment & Plan Assessment & Plan (1) Morbid obesity: Code(s): E66.01 - Morbid (severe) obesity due to excess calories (2) Obstructive sleep apnea: Code(s): G47.33 - Obstructive sleep apnea (adult) (pediatric) (3) Difficulty sleeping: Code(s): G47.9 - Sleep disorder, unspecified (4) Daytime somnolence: Code(s): R40.0 - Somnolence Plan Start APAP [id number]. Advised patient to undergo CPAP titration study to find optimal CPAP pressure to treat VANESSA. New CPAP prescription with supply order given to patient. Advised patient to try magnesium 400 mg and melatonin 3-6 mg qHS to promote sleep. Orders: Orders RT PSG in-lab sleep titration Today E66.01 - Morbid (severe) obesity due to excess calories, G47.33 - Obstructive sleep apnea (adult) (pediatric) Medications: New magnesium oxide 400 mg PO DAILY 30 days 30 tabs 2RF melatonin 1-2 tabs orally bedtime PRN; 30 days 60 tabs 1RF sleep Coding Level of Care Code New Pt Level 4 (78864) Diagnoses Morbid obesity E66.01 Obstructive sleep apnea G47.33 Difficulty sleeping G47.9 Daytime somnolence R40.0
== END 2023-01-20 13:56 | disposition home or self-care (01) ==
LOC: HO.HSMC 13:00
PROVIDERS: PCP Internal Medicine; Visit Provider Nurse Practitioner Family
DX: E66.01 Morbid (severe) obesity due to excess calories (principal); G47.33 Obstructive sleep apnea (adult) (pediatric); G47.9 Sleep disorder, unspecified; R40.0 Somnolence
CPT/HCPCS: 99204

== ENCOUNTER → 2023-01-20 12:59 | Outpatient (BNVA) | payer MEDICAID, SELFPAY | PROVIDERS: PCP Internal Medicine; Visit Provider Nurse Practitioner Family | DX: G47.33 Obstructive sleep apnea (adult) (pediatric) (principal); G47.9 Sleep disorder, unspecified; R40.0 Somnolence; E66.01 Morbid (severe) obesity due to excess calories; Z68.41 Body mass index [BMI] 40.0-44.9, adult | CPT/HCPCS: 99204 ==

== ENCOUNTER → 2023-03-11 16:10 | Outpatient (BNV) | payer MEDICAID, SELFPAY | PROVIDERS: PCP Internal Medicine; Visit Provider Internal Medicine | DX: R07.2 Precordial pain (principal); R06.02 Shortness of breath | CPT/HCPCS: 93306 ==

== ENCOUNTER → 2023-03-11 16:10 | Outpatient (REF) | payer MEDICAID, SELFPAY ==
--- NOTE | 2023-03-11 16:10 | CA_ITS ---
Transthoracic Echocardiogram Patient (Last, First, Middle): Cristofer Ramsey R Gender: Male Date of : 1985 Age: 37 Procedure Date: 03/11/2023 Procedure Type: Transthoracic Echocardiogram Location: OP Height: 170.18 cm Weight: 129.28 kg BSA: 2.35 m2 Heart Rate: bpm BP: 134 / 80 mmHg Stave Grader: TRU Referring MD: Lela Gray GLOVE PAIRERAntwan Symptoms: R07.2 - Precordial pain Study Quality: Fair ECG Rhythm: Sinus Conclusions: - The left ventricular systolic function is normal. The visually estimated ejection fraction is between 60-65%. - There is mildly increased left ventricular wall thickness. - No obvious valvular pathology seen on this study. Findings Left Ventricle Normal left ventricular cavity size. There is mildly increased left ventricular wall thickness. The left ventricular systolic function is normal. The visually estimated ejection fraction is between 60-65%. There is no evidence of regional wall motion abnormalities. Diastolic function is normal for age. Right Ventricle Normal right ventricular cavity size and systolic function. Atria Both atria are normal in size. Aortic Valve The aortic valve structure and function is likely normal. There is no aortic valve stenosis. There is no aortic valve regurgitation. Mitral Valve The mitral valve appears normal. There is no mitral valve regurgitation. There is no mitral valve stenosis. Pulmonic Valve The pulmonic valve is likely normal. Tricuspid Valve There is trace tricuspid valve regurgitation. There is no evidence of pulmonary hypertension. Great Vessels The asc aorta is normal in size. Venous The inferior vena cava is normal in size and collapses greater than 50% with inspiration. Pericardium/Pleural There is no evidence of pericardial effusion. Prior Study Comparison No prior study available for comparison. Recommendations, Care & Conclusions No obvious valvular pathology seen on this study. Measurements 2D Linear Measurements IVSd: 1.26 0.6-0.9/0.6-1.0 cm LVIDd: 4.25 3.9-5.3/4.2-5.9 cm LVIDd Index: 1.81 2.4-3.2/2.2-3.1 cm/m2 LVIDs: 2.70 2.0-3.6 cm LVPWd: 1.22 0.7-1.1 cm Ao Root: 2.70 2.1-3.5 cm LA Diam: 3.70 2.7-3.8/3.0-4.0 cm LAIDs Index: 1.57 1.5-2.3 cm/m2 LV Mass: 237.18 67-162/88-224 g LV Mass Index: 100.93 43-95/49-115 g/m2 LVOT Diam: 2.30 3.0+(-)1.3 cm Mitral Valve MV Pk E: 0.64 MV PK A: 0.52 MV Decel Time: 110.00 E/A: 1.20 E'Lateral: 12.50 E'Medial: 7.07 E/E' Med: 9.10 E/E' Lat: 5.10 PHT: 32.00 MVA PHT: 6.88 Decel [place]: 5.82 Aortic Valve AoV Pk Mac: 0.83 AoV Mn Mac: 0.59 AoV VTI: 0.14 AoV Pk Grad: 3.00 Aov Mn Grad: 2.00 NAGI Cont.VTI: 2.48 LVOT LVOT Pk Mac: 0.47 LVOT Mn Mac: 0.30 LVOT VTI: 0.08 LVOT Pk Grad: 1.00 LVOT Mn Grad: 0.00 LVOT Diam: 2.30 LVOT Area: 4.15 Diastolic Function MV Pk E: 0.64 MV Pk A: 0.52 E/A: 1.20 E'Medial: 7.07 E/E' Med: 9.10 E' Laterial: 12.50 E/E' Lat: 5.10 Right Ventricle TAPSE (mm): 20.40 TVS' Mac: 12.20 Tricuspid Valve TR Pk Mac: 2.08 TR Pk Grad: 17.00 Great Vessels Aorta Ao Root-2D: 2.70 2.0-3.7 cm Ao Asc: 2.70 2.1-3.4 cm Pulmonary Valve PV Pk Mac: 1.50 Peak PV Grad: 9.00 Updated in Other Vendor System with Status of Final Diego Andrade MD electronically signed on 03/12/2023 8:39:29 AM with status of Final
== END ==
LOC: HO.CARD 16:10
PROVIDERS: PCP Internal Medicine; Visit Provider Nurse Practitioner Family
DX: R07.2 Precordial pain (principal); R06.02 Shortness of breath
CPT/HCPCS: 93306

== ENCOUNTER 2023-03-20 13:53 | Outpatient (REF) | payer MEDICAID, SELFPAY ==
--- NOTE | 2023-03-20 13:55 | EMG_ITS ---
Chief complaint: Bilateral hand numbness, mostly 4th and 5th digits Reason for referral: Evaluate for ulnar neuropathy versus Carpal Tunnel Syndrome Referred by: Dr. Connelly Procedure done: Bilateral upper extremities NCS/EMG Precautions and/or limitations: None The limb temperature was monitored continuously and remained between 32-36 degrees C during the performance of the NCS. Nerve Conduction Studies Anti Sensory Summary Table ?Stim Site NR Onset (ms) Norm Onset (ms) Peak (ms) Norm Peak (ms) O-P Amp (?V) Norm O-P Amp Site1 Site2 Delta-0 (ms) Dist (cm) Mac (m/s) Norm Mac (m/s) Left Median Anti Sensory (2nd Digit) Wrist ? 2.6 3.1 <3.6 15.9 >10 Wrist 2nd Digit 2.6 14.0 54 Right Median Anti Sensory (2nd Digit) Wrist ? 2.5 3.0 <3.6 29.4 >10 Wrist 2nd Digit 2.5 14.0 56 Right Radial Anti Sensory (Thumb) Forearm ? 0.9 1.9 <3.1 32.0 Forearm Thumb 0.9 0.0 Left Ulnar Anti Sensory (5th Digit) Wrist ? 2.6 3.1 <3.7 16.0 >15.0 Wrist 5th Digit 2.6 14.0 54 Right Ulnar Anti Sensory (5th Digit) Wrist ? 2.2 3.0 <3.7 15.8 >15.0 Wrist 5th Digit 2.2 14.0 64 Motor Summary Table ?Stim Site NR Onset (ms) Norm Onset (ms) O-P Amp (mV) Norm O-P Amp iAmp (mV) Amp (1st) (%) Site1 Site2 Delta-0 (ms) Dist (cm) Mac (m/s) Norm Mac (m/s) Left Median Motor (Abd Poll Brev) Wrist ? 3.6 <3.9 4.6 >4.5 5.3 100.0 Elbow Wrist 3.4 20.5 60 >45 Elbow ? 7.0 12.6 15.1 273.9 Right Median Motor (Abd Poll Brev) Wrist ? 3.3 <3.9 12.0 >4.5 14.2 100.0 Elbow Wrist 3.5 21.0 60 >45 Elbow ? 6.8 12.3 14.6 102.5 Left Ulnar Motor (Abd Dig Minimi) Wrist ? 2.4 <3.0 6.2 >5 7.3 100.0 B Elbow Wrist 3.4 21.0 62 >45 B Elbow ? 5.8 5.8 6.9 93.5 A Elbow B Elbow 1.2 10.0 83 >45 A Elbow ? 7.0 5.8 7.0 93.5 Right Ulnar Motor (Abd Dig Minimi) Wrist ? 2.3 <3.0 5.4 >5 7.1 100.0 B Elbow Wrist 3.5 21.0 60 >45 B Elbow ? 5.8 4.6 6.3 85.2 A Elbow B Elbow 1.5 10.0 67 >45 A Elbow ? 7.3 4.2 5.9 77.8 EMG ?Side Muscle Nerve Root Ins Act Fibs Psw Amp Dur Poly Recrt Int Pat Comment Right 1stDorInt Ulnar C8-T1 Nml Nml Nml Nml Nml 0 Nml Complete Right FlexCarRad Median C6-7 Nml Nml Nml Nml Nml 0 Nml Complete Right Biceps Musculocut C5-6 Nml Nml Nml Nml Nml 0 Nml Complete Right Triceps Radial C6-7-8 Nml Nml Nml Nml Nml 0 Nml Complete Right Deltoid Axillary C5-6 Nml Nml Nml Nml Nml 0 Nml Complete Left 1stDorInt Ulnar C8-T1 Nml Nml Nml Nml Nml 0 Nml Complete Left FlexCarRad Median C6-7 Nml Nml Nml Nml Nml 0 Nml Complete Left Biceps Musculocut C5-6 Nml Nml Nml Nml Nml 0 Nml Complete Left Triceps Radial C6-7-8 Nml Nml Nml Nml Nml 0 Nml Complete Left Deltoid Axillary C5-6 Nml Nml Nml Nml Nml 0 Nml Complete FINDINGS: All motor and sensory nerves tested showed normal latencies, amplitudes and conduction velocities. Concentric needle EMG was performed in selected muscles of the bilateral upper extremities. Study did not reveal signs of electric abnormalities as shown in the table below. IMPRESSION: 1. This is a normal study. 2. There is no electrodiagnostic evidence for median neuropathy, ulnar neuropathy, brachial plexopathy, or cervical radiculopathy. Thank you for your kind referral. Monet Saunders MD, ЮЛИЯ Board Certified, [place] Board of [employer] and Rehabilitation (ABPMR) Board Certified, [place] Board of Electrodiagnostic Medicine (ABEM) CODIN [id number] x 2 YAJAIRA
== END 2023-03-20 13:54 | disposition home or self-care (01) ==
LOC: HO.NEURO 13:53
PROVIDERS: PCP Internal Medicine; Visit Provider Student in an Organized Health Care Education/Training Program
DX: G56.23 Lesion of ulnar nerve, bilateral upper limbs (principal)
CPT/HCPCS: 95886; 95911

== ENCOUNTER → 2023-03-20 13:55 | Outpatient (BNV) | payer MEDICAID, SELFPAY | PROVIDERS: PCP Internal Medicine; Visit Provider Physical Medicine & Rehabilitation | DX: R20.2 Paresthesia of skin (principal) | CPT/HCPCS: 95886; 95911 ==

== ENCOUNTER 2023-03-31 15:06 | Outpatient (AMB) | payer MEDICAID, SELFPAY ==
--- NOTE | 2023-03-31 15:24 | MHC.OFFVIS ---
Intake Vital Signs 03/31/23 15:26 Height 5 ft 7 in Weight 291 lb BMI 45.6 BP 128/60 Blood Pressure Location Lt brachial Position Sitting Pulse 96 Pulse Source Pulse Oximeter Pulse Oximetry (%) 98 Oxygen Delivery Method Room Air Intake Visit Reasons: 2 mnts f/u appt for sleep - Confirmed Intake Note: Pt presents today for fup sleep , no new complaints Allergies clindamycin [CLINDAMYCIN] Allergy (Intermediate, Verified 03/31/23 15:28) SWELLING HPI HPI Comments History of Present Illness Details 37 y/o male patient presents for follow up of VANESSA on CPAP. He did not go to [facility] to set up the APAP [id number]. He uses CPAP at 12.5 cmH2O. He can sleep 6-7 hrs, and sleeps better with CPAP, and melatonin 5 mg. Pt reports he rested and wakes up refreshed, his daytime sleepiness has improved. The CPAP compliance and therapy response is not available. He gained about 7 lb over the last 2 months. [facility] Medical History Cubital tunnel syndrome, bilateral Encounter for testing for latent tuberculosis infection Screening for viral disease Rheumatoid arthritis DJD (degenerative joint disease) Anxiety Morbid obesity Depression Sleep apnea Surgical History Hx of knee surgery Hx of cholecystectomy History of tonsillectomy Family History Mother Diabetes Arthritis Father No problems noted. Brother No problems noted. Brother No problems noted. Sister No problems noted. Sister No problems noted. Son ADHD Son No problems noted. Daughter No problems noted. Daughter No problems noted. 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 Review of Systems Const All systems reviewed & are unremarkable except as noted in HPI and below ENT Reports Normal hearing present Neuro Reports Normal hearing present Physical Exam Vital Signs: Last Vital Signs Pulse 96 03/31/23 15:26 BP 128/60 03/31/23 15:26 Pulse Ox 98 03/31/23 15:26 Oxygen Delivery Method Room Air 03/31/23 15:26 BMI result Body Mass Index 45.6 Const General: cooperative Nutritional Appearance: obese Orientation/consciousness: patient oriented x3 Eyes Pupils: Equal, round and reactive pupils present Neck Neck: Yes full ROM and Yes supple Resp Effort & Inspection: normal respiratory effort and able to speak in complete sentences Neuro General: patient oriented x3, gait normal and moves all extremities Cranial nerves: Yes Equal, round and reactive pupils present, Yes Bilaterally intact EOM present, Yes Normal facial strength present, Yes Midline tongue present, Yes Symmetric palate elevation present and Yes Normal hearing present Cognition (Neuro): normal cognition Gait exam (Neuro): Normal gait present Motor exam (neuro): 5/5 motor strength present throughout and Pronator motor function not present Psych Appearance: grossly normal Mental Status: mental status grossly normal Affect: normal affect Attitude: cooperative Assessment & Plan Assessment & Plan (1) Morbid obesity: Code(s): E66.01 - Morbid (severe) obesity due to excess calories (2) Obstructive sleep apnea: Code(s): G47.33 - Obstructive sleep apnea (adult) (pediatric) (3) Difficulty sleeping: Code(s): G47.9 - Sleep disorder, unspecified (4) Daytime somnolence: Code(s): R40.0 - Somnolence Plan Advised patient to bring his CPAP to set up to APAP [id number]. Advised patient to try magnesium 400 mg and melatonin 3-6 mg qHS to promote sleep. Clean mask and tubing regularly and change the filter q 2 weeks. Coding Level of Care Code Est Pt Level 3 (03683) Diagnoses Morbid obesity E66.01 Obstructive sleep apnea G47.33 Difficulty sleeping G47.9 Daytime somnolence R40.0
[2023-03-31 15:26] VITALS: BP 128/60; PULSE 96; O2SAT 98; BMI 45.6
== END 2023-03-31 15:44 | disposition home or self-care (01) ==
PROVIDERS: PCP Internal Medicine; Visit Provider Nurse Practitioner Family
DX: E66.01 Morbid (severe) obesity due to excess calories (principal); G47.33 Obstructive sleep apnea (adult) (pediatric); G47.9 Sleep disorder, unspecified; R40.0 Somnolence
CPT/HCPCS: 99213

== ENCOUNTER → 2023-03-31 15:06 | Outpatient (BNVA) | payer MEDICAID, SELFPAY | PROVIDERS: PCP Internal Medicine; Visit Provider Nurse Practitioner Family | DX: G47.33 Obstructive sleep apnea (adult) (pediatric) (principal); G47.9 Sleep disorder, unspecified; E66.01 Morbid (severe) obesity due to excess calories; Z68.42 Body mass index [BMI] 45.0-49.9, adult | CPT/HCPCS: 99212 ==

== ENCOUNTER → 2023-04-13 12:19 | Outpatient (REF) | payer MEDICAID, SELFPAY ==
--- NOTE | 2023-04-13 12:21 | CA_ITS ---
Acquisition Time: 2023-04-13 12:34:47 Total Exercise Time: 00:06:57 Test Indications: ABN EKG, CP Medications: SEE H Protocol: LUNA Max HR: 166 BPM 90% of Pred: 184 BPM Max BP: 138/068 mmHG Max Work Load: 8.4 METS Exercise stress test exercise 6 min 57 sec of Luna protocol achieving 91% MPHR, with mild to moderate SOB, no chest discomfort, without arrhythmias, with normotensive response to exercise, with inverted T wave in aVF, V5-V6 . Echo images obtained by [employer] at rest and immediately post peak exercise. Definity contrast used. Test reviewed with Dr. Diez. Exercise stress echocardiogram reviewed. At rest, there is normal LVEF and wall motion. With peak exercise, there is appropriate augmentation of wall thickening and contractility. There is normal decrease in end-systolic volumes. Overall, normal study. Referred By: Lela Gray Overread By: LALO DIEZ
== END ==
LOC: HO.CARD 12:19
PROVIDERS: Visit Provider Nurse Practitioner Family
DX: R07.2 Precordial pain (principal); R06.02 Shortness of breath
CPT/HCPCS: 93350; Q9957

== ENCOUNTER → 2023-04-13 12:21 | Outpatient (BNV) | payer MEDICAID, SELFPAY | PROVIDERS: Visit Provider Internal Medicine | DX: R06.02 Shortness of breath (principal) | CPT/HCPCS: 93016; 93018; 93350; 93352 ==

== ENCOUNTER 2023-05-27 16:11 | Outpatient (AMB) | payer MEDICAID, SELFPAY ==
[2023-05-27 16:14] VITALS: BP 132/78; PULSE 96; RESP 15; TEMP 36.2; O2SAT 98; BMI 46.0
--- NOTE | 2023-05-27 16:14 | A.OFFVIS_ITS ---
Intake Vital Signs 05/27/23 16:14 Height 5 ft 7 in Weight 293 lb 6.964 oz BMI 46.0 BP 132/78 Blood Pressure Location Rt brachial Respiration 15 Pulse 96 Pulse Source Pulse Oximeter Temp 97.2 F Temp Source Tympanic Pulse Oximetry (%) 98 Oxygen Delivery Method Room Air Intake Visit Reasons: RF + VE Allergies clindamycin [CLINDAMYCIN] Allergy (Intermediate, Verified 05/27/23 16:15) SWELLING Medication List - Last Reconciled 05/27/23 by Ivy Connelly MD bupropion HCl 150 mg PO DAILY hydroxyzine HCl 25 - 50 mg PO Q8H PRN magnesium oxide 400 mg PO DAILY 30 days melatonin 1-2 tabs orally bedtime PRN; 30 days ziprasidone HCl 40 mg PO BID HPI HPI Comments History of Present Illness Details Patient returns for follow-up after completion of his diagnostic work. Continues to feel about the same. He has morning stiffness of his wrists lasting 3-5 minutes. Throughout the day he would have discomfort on the ulnar aspect of both his wrists. Has any swollen or tender joints. He took prednisone 4-5 days without any noticeable improvement. He did mention that he gained 25-30 lb over the last 12 months Initial history: This is a 37-year-old male who presents for evaluation of a positive rheumatoid factor. Patient has been having numbness of both hands. Especially the ring and little fingers. This morning stiffness of his hands lasting around 30 minutes to 1h. He does not take anything for pain. The numbness is worse at nighttime and in the morning. 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 He works with his hands. Has been doing this job for years now. He denies any swollen or tender joints. Denies any skin rashes. There is no history of DVT/PE. Denies sicca symptoms. He is unaware of any family history of autoimmune rheumatic disease. [facility] Medical History (Updated 05/27/23 @ 16:38 by Ivy Connelly MD) DJD (degenerative joint disease) Anxiety Morbid obesity Depression Sleep apnea Surgical History Hx of knee surgery Hx of cholecystectomy History of tonsillectomy Family History Mother Diabetes Arthritis Father No problems noted. Brother No problems noted. Brother No problems noted. Sister No problems noted. Sister No problems noted. Son ADHD Son No problems noted. Daughter No problems noted. Daughter No problems noted. 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 Review of Systems Const Reports weight gain Eyes Reports blurry vision Musc Reports arthralgias, Reports numbness, Reports stiffness and Reports tingling Neuro Reports numbness and Reports tingling Psych Reports anxiety and Reports depression Physical Exam Vital Signs: Last Vital Signs Temp 97.2 F 05/27/23 16:14 Pulse 96 05/27/23 16:14 Resp 15 05/27/23 16:14 BP 132/78 05/27/23 16:14 Pulse Ox 98 05/27/23 16:14 Oxygen Delivery Method Room Air 05/27/23 16:14 BMI result Body Mass Index 46.0 Const General: cooperative, healthy appearing and comfortable Nutritional Appearance: obese morbidly obese Orientation/consciousness: patient oriented x3 Limitations: no limitations HEENT Head: Yes normocephalic and Yes atraumatic Resp Effort & Inspection: normal respiratory effort and able to speak in complete sentences Cardio Rate: regular rate Neuro General: patient oriented x3 Extrem Other: Minimal, Bilateral wrist pain with full flexion. No swollen or tender joints Osteoarthritic changes of both hands with prominent Heberden's nodes and squaring of 1st CMC joints bilaterally No tender extensor or flexor tendons bilaterally in both hands Negative MCP squeeze test bilaterally Negative Tinel sign bilaterally Mild elbow pain with full extension bilaterally No ankle or MTP swelling or tenderness bilateral Assessment & Plan Assessment & Plan (1) Rheumatoid factor positive: Code(s): R76.8 - Other specified abnormal immunological findings in serum Plan: This is a 37-year-old male who presents for evaluation of positive rheumatoid factor. This has been ongoing for about 4 years. Patient has minimal stiffness of both his wrists that lasts 3-5 minutes in the morning. Bilateral wrist discomfort throughout the day but no swelling. No other joint involvement. On exam there is no swollen or tender joints. He does have some findings of osteoarthritis affecting his DIPs. Patient took prednisone for 4 days and it was not helpful. He has negative LILIANA/CCP/SSA/SSB. Are reviewed his bilateral hand x-rays from 2019 and 2022. There has not been any progressive erosive changes of rheumatoid arthritis. Bilateral hand ultrasound this year was negative for synovitis/tenosynovitis. Bilateral upper extremity EMG/NCV was unremarkable Explained to patient that I do not see any signs of an autoimmune rheumatic disease. Will re-evaluate in 4 months (2) Transaminitis: Code(s): R74.01 - Elevation of levels of liver transaminase levels Plan: And CPPD related to fatty liver. Patient has gained 25-30 lb over the last 12 m onths. Given positive rheumatoid factor, will check autoimmune liver panel and refer patient to gastroenterology Plan I spent 47 minutes reviewing patient's chart, evaluating patient, ordering diagnostic workup, counseling patient and documenting in the chart Orders: Orders Liver Kidney Microsomal Ab Today R74.01 - Elevation of levels of liver transaminase levels Mitochondrial Antibody Today R74.01 - Elevation of levels of liver transaminase levels Smooth Muscle Antibody Today R74.01 - Elevation of levels of liver transaminase levels Referrals Gastroenterology Referral R74.01 - Elevation of levels of liver transaminase levels Coding Level of Care Code Est Pt Level 5 (94757) Diagnoses Rheumatoid factor positive R76.8 Transaminitis R74.01
== END 2023-05-27 16:36 | disposition home or self-care (01) ==
PROVIDERS: PCP Internal Medicine; Visit Provider Student in an Organized Health Care Education/Training Program
DX: R76.8 Other specified abnormal immunological findings in serum (principal); R74.01 Elevation of levels of liver transaminase levels
CPT/HCPCS: 99215

== ENCOUNTER → 2023-05-27 16:11 | Outpatient (BNVA) | payer MEDICAID, SELFPAY | PROVIDERS: Visit Provider Student in an Organized Health Care Education/Training Program | DX: R76.8 Other specified abnormal immunological findings in serum (principal); R74.01 Elevation of levels of liver transaminase levels | CPT/HCPCS: 99212 ==

== ENCOUNTER 2023-06-18 16:14 | Outpatient (REF) | payer MEDICAID, SELFPAY ==
[2023-06-21 11:49] LABS: Liver Kidney Microsomal Ab <=20.0 U (<=20.0)
[2023-06-22 06:28] LABS: Smooth Muscle Antibody <20 U (<20)
[2023-06-23 17:14] LABS: Mitochondrial Antibodies NEGATIVE (NEGATIVE)
== END 2023-06-18 16:15 | disposition home or self-care (01) ==
LOC: HO.LAB 16:14
PROVIDERS: PCP Internal Medicine; Visit Provider Student in an Organized Health Care Education/Training Program
DX: R74.01 Elevation of levels of liver transaminase levels (principal)
CPT/HCPCS: 36415; 86015; 86376; 86381

== ENCOUNTER 2023-07-29 15:30 | Outpatient (REF) | payer MEDICAID, SELFPAY ==
[2023-07-29 17:53] LABS: Alanine Aminotransferase 68 U/L (0-40); Albumin Level 4.5 g/dL (3.5-5.0); Alkaline Phosphatase 55 U/L (39-117); Aspartate Amino Transferase 34 U/L (5-37); Bilirubin Direct 0.2 mg/dL (0.0-0.5); Bilirubin Total 0.5 mg/dL (0.0-1.0); Total Protein 7.3 g/dL (6.5-8.0)
[2023-07-29 18:09] LABS: Ferritin 365 ng/mL (20-250)
[2023-07-29 18:17] LABS: Gamma Glutamyl Transpeptidase 41 U/L (11-51)
[2023-07-30 04:19] LABS: HIV AB/AG Nonreactive (Nonreactive); HIV Num 1 0.05 S/CO (0.00-0.99)
[2023-08-04 15:18] LABS: Ceruloplasmin 39 mg/dL (18-36)
== END 2023-07-29 15:31 | disposition home or self-care (01) ==
LOC: HO.LAB 15:30
PROVIDERS: PCP Internal Medicine; Visit Provider Nurse Practitioner
DX: R74.01 Elevation of levels of liver transaminase levels (principal); E66.01 Morbid (severe) obesity due to excess calories; G47.33 Obstructive sleep apnea (adult) (pediatric); Z68.41 Body mass index [BMI] 40.0-44.9, adult
CPT/HCPCS: 36415; 80076; 82390; 82728; 82977; 87389; 99212

== ENCOUNTER 2023-07-29 15:30 | Outpatient (AMB) | payer MEDICAID, SELFPAY ==
[2023-07-29 15:36] VITALS: BP 131/69; PULSE 92; BMI 44.5
--- NOTE | 2023-07-29 15:36 | A.OFFVIS_ITS ---
Intake Vital Signs 3 07/29/23 15:36 Height 5 ft 7 in Weight 284 lb 6.341 oz BMI 44.5 BP 131/69 Blood Pressure Location Rt brachial Position Sitting Pulse 92 Intake Visit Reasons: Elevated LFTs Intake Note: New patient in office for elevated LFTs. CC: Patient denies having any GI symptoms today. Allergies clindamycin [CLINDAMYCIN] Allergy (Intermediate, Verified 07/29/23 15:43) SWELLING HPI Elevated LFTs 2 HPI0 Details 38-year-old male here for initial evalua tion of elevated LFTs. He is referred by Latricia Sneed of [facility]. PMX VANESSA Morbid obesity Anxiety/depression/insomnia Rheumatoid factor positive * SURGICAL HISTORY Left knee surgery Cholecystectomy Tonsillectomy * ALLERGIES Clindamycin * [email or web address] LABS: Laboratory Tests 01/15/23 01/15/23 01/15/23 12:26 12:26 12:26 WBC 9.4 Hgb 15.0 Hct 46.2 Plt Count 341 Estimated GFR > 60 Total Bilirubin 0.8 AST 69 H ALT 87 H Alkaline Phosphata se 51 Anti-Mitochondrial Ab Anti-Smooth Muscle Ab Hepatitis A IgM Ab Nonreactive Hep Bs Antigen Negative Hep Bs Antibody NONREACTIVE Hep B Core Total A b Nonreactive Hepatitis C Ab (EI A) Nonreactive 06/18/23 06/18/23 16:20 16:20 WBC Hgb Hct Plt Count Estimated GFR Total Bilirubin AST ALT Alkaline Phosphata se Anti-Mitochondrial Ab NEGATIVE Anti-Smooth Muscle Ab <20 Hepatitis A IgM Ab Hep Bs Antigen Hep Bs Antibody Hep B Core Total A b Hepatitis C Ab (EI A) TODAY'S VISIT His LFT's have been rising since 2019 he has gained 50-60 lbs. THis was r/t stress eating. His sister has fatty liver. He does not drink ETOH. He does not have any signs or symptoms of liver disease. No diarrheal sx. NO systemic sx. He is morbidly obese so this could be GUTIERREZ and this was explained to him however will need to rule out any other overlapping pathology that is reversible. Get labs and US with elast. Return office visit in 8 weeks [facility] Medical History DJD (degenerative joint disease) Anxiety Morbid obesity Depression Sleep apnea Surgical History Hx of knee surgery Hx of cholecystectomy History of tonsillectomy Family History Mother Diabetes Arthritis Father No problems noted. Brother No problems noted. Brother No problems noted. Sister No problems noted. Sister No problems noted. Son ADHD Son No problems noted. Daughter No problems noted. Daughter No problems noted. 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 Review of Systems Const Denies fatigue, Denies fever(s), Denies night sweats, Denies poor appetite and Denies weight loss ENT Reports Normal hearing present, Denies dental pain, Denies dysphagia, Denies hearing loss, Denies mouth pain, Denies odynophagia, Denies throat swelling, Denies tongue swelling and Reports other (Dentition adequate) Card Reports no additional complaints Resp Reports no additional complaints GI Details: Denies abdominal pain, Denies melena, Denies bloating, Denies hematochezia, Denies constipation, Denies GI cramping, Denies dysphagia, Denies excessive flatus, Denies early satiety, Denies heartburn, Denies diarrhea, Denies nausea, Denies odynophagia, Denies vomiting and Denies hematemesis Skin/Breast Denies pruritus, Denies lesions, Denies rash and Denies jaundice Neuro Reports Normal hearing present and Denies Abnormal speech present Endo Denies fatigue Aller/Immun Denies throat swelling and Denies tongue swelling Physical Exam Vital Signs: Last Vital Signs Pulse 92 07/29/23 15:36 BP 131/69 07/29/23 15:36 BMI result Body Mass Index 44.5 Const General: cooperative, no acute distress, well developed and well groomed Nutritional Appearance: well nourished and obese morbidly obese Orientation/consciousness: oriented to person, oriented to place and oriented to time Limitations: No language barrier HEENT Head: Yes normocephalic and Yes atraumatic Eyes General: appearance normal, both eyes and all related structures Pupils: Equal, round and reactive pupils present Neck Neck: Yes normal visual inspection and Yes no lymphadenopathy Thyroid: Thyroid normal Resp Effort & Inspection: normal respiratory effort and able to speak in complete sentences Auscultation: clear to auscultation bilaterally Cardio Rate: regular rate Rhythm: regular rhythm Heart sounds: Normal, physiologic split S2 sound present Peripheral pulses: radial pulses present and posterior tibial pulses present GI Inspection: No distended, Yes Abdominal panniculus present and Yes obesity Palpation (GI): Soft to palpation, nontender, no guarding, not rigid and No hepatosplenomegaly present Percussion: Yes normal to percussion Auscultation: normal bowel sounds Rectal Exam - Male: Yes deferred Abdomen image: 2 1. srugical scars 2. Skin General skin exam: no rashes or lesions noted, turgor normal, skin not dry, no jaundice, No spider nevi and no striae Rashes: no rashes Nails: normal Neuro General: oriented to person, oriented to place and oriented to time Cranial nerves: Yes Equal, round and reactive pupils present and Yes Normal hearing present Speech: No Abnormal speech present Extrem General: Yes normal to inspection, No clubbing, No cyanosis and No edema Psych Appearance: grossly normal and well kempt Mental Status: mental status grossly normal Speech and movement: Normal speech and movement present Affect: normal affect Attitude: cooperative Thought process: Normal thought process present and not confabulating Thought content: Normal thought content present Insight: Fair insight present (Psych) Judgement: Fair judgement present (Psych) Results Reviewed Results Reviewed: Laboratory Tests 01/15/23 01/15/23 01/15/23 12:26 12:26 12:26 WBC 9.4 Hgb 15.0 Hct 46.2 Plt Count 341 Estimated GFR > 60 Total Bilirubin 0.8 AST 69 H ALT 87 H Alkaline Phosphatase 51 Anti-Mitochondrial Ab Anti-Smooth Muscle Ab Hepatitis A IgM Ab Nonreactive Hep Bs Antigen Negative Hep Bs Antibody NONREACTIVE Hep B Core Total Ab Nonreactive Hepatitis C Ab (EIA) Nonreactive 06/18/23 06/18/23 16:20 16:20 WBC Hgb Hct Plt Count Estimated GFR Total Bilirubin AST ALT Alkaline Phosphatase Anti-Mitochondrial Ab NEGATIVE Anti-Smooth Muscle Ab <20 Hepatitis A IgM Ab Hep Bs Antigen Hep Bs Antibody Hep B Core Total Ab Hepatitis C Ab (EIA) Assessment & Plan Assessment & Plan (1) Transaminitis: Comment: Baseline labs 01/15/23 WBC 9.4 Hgb 15.0 Hct 46.2 Plt Count 341 Estimated GFR > 60 Total Bilirubin 0.8 AST 69 H ALT 87 H Alkaline Phosphatase 51 Hepatitis A IgM Ab Nonreactive Hep Bs Antigen Negative Hep Bs Antibody NONREACTIVE Hep B Core Total Ab Nonreactive Hepatitis C Ab (EIA) Nonreactive Anti-Mitochondrial Ab NEGATIVE Anti-Smooth Muscle Ab <20 CURRENT LABS ULTRASOUND Code(s): R74.01 - Elevation of levels of liver transaminase levels (2) Morbid obesity: Code(s): E66.01 - Morbid (severe) obesity due to excess calories (3) Obstructive sleep apnea: Code(s): G47.33 - Obstructive sleep apnea (adult) (pediatric) Plan His LFT's have been rising since 2019 he has gained 50-60 lbs. THis was r/t stress eating. His sister has fatty liver. He does not drink ETOH. He does not have any signs or symptoms of liver disease. No diarrheal sx. NO systemic sx. He is morbidly obese so this could be GUTIERREZ and this was explained to him however will need to rule out any other overlapping pathology that is reversible. Get labs and US with elast. Return office visit in 8 weeks Orders: Orders 2 Gamma Glutamyl Transpeptidase 07/29/23 R74.01 - Elevation of levels of liver transaminase levels, E66.01 - Morbid (severe) obesity due to excess calories, G47.33 - Obstructive sleep apnea (adult) (pediatric) US abdomen comp w elastography 07/29/23 R74.01 - Elevation of levels of liver transaminase levels, E66.01 - Morbid (severe) obesity due to excess calories, G47.33 - Obstructive sleep apnea (adult) (pediatric) Ferritin 07/29/23 R74.01 - Elevation of levels of liver transaminase levels, E66.01 - Morbid (severe) obesity due to excess calories, G47.33 - Obstructive sleep apnea (adult) (pediatric) Liver Panel 07/29/23 R74.01 - Elevation of levels of liver transaminase levels, E66.01 - Morbid (severe) obesity due to excess calories, G47.33 - Obstructive sleep apnea (adult) (pediatric) Ceruloplasmin 07/29/23 R74.01 - Elevation of levels of liver transaminase levels, E66.01 - Morbid (severe) obesity due to excess calories, G47.33 - Obstructive sleep apnea (adult) (pediatric) HIV Ab/Ag 07/29/23 R74.01 - Elevation of levels of liver transaminase levels, E66.01 - Morbid (severe) obesity due to excess calories, G47.33 - Obstructive sleep apnea (adult) (pediatric) Coding Level of Care Code New Pt Level 3 (13326) Diagnoses Transaminitis R74.01 Morbid obesity E66.01 Obstructive sleep apnea G47.33
== END 2023-07-29 15:59 | disposition home or self-care (01) ==
PROVIDERS: PCP Internal Medicine; Visit Provider Nurse Practitioner
DX: R74.01 Elevation of levels of liver transaminase levels (principal); E66.01 Morbid (severe) obesity due to excess calories; G47.33 Obstructive sleep apnea (adult) (pediatric)
CPT/HCPCS: 99203

== ENCOUNTER 2023-07-30 16:04 | Outpatient (REF) | payer MEDICAID, SELFPAY | END 2023-07-30 16:05 | disposition home or self-care (01) | LOC: HO.LAB 16:04 | PROVIDERS: PCP Internal Medicine; Visit Provider Nurse Practitioner | DX: R79.89 Other specified abnormal findings of blood chemistry (principal); R74.01 Elevation of levels of liver transaminase levels | CPT/HCPCS: 36415; 81256 ==

== ENCOUNTER 2023-08-20 08:57 | Outpatient (REF) | payer MEDICAID, SELFPAY ==
--- NOTE | ~2023-08-20 | US_ITS ---
EXAMINATION: US COMPLETE ABDOMEN WITH LIVER ELASTOGRAPHY CLINICAL INFORMATION: Elevation of levels of liver transaminases. COMPARISON: None available. TECHNIQUE: Real-time imaging of the abdominal viscera. Noninvasive ultrasound liver fibrosis assessment is performed using Dia ElastPQ point quantification shear wave elastography (2D-SWE) with a C5-2 MHz transducer. Multiple elastography samples are obtained. FINDINGS: PANCREAS: Normal. ABDOMINAL AORTA: The proximal, middle, and distal aortic segments are normal in caliber. INFERIOR VENA CAVA: Visualized portions are normal. LIVER: Liver has normal size and contour. The parenchyma is diffusely hyperechoic and there is limited acoustic penetration through the parenchyma. Findings are consistent with diffuse steatosis. No focal liver lesion or intrahepatic ductal dilatation. The right lobe measures 16.3 cm in length. The left lobe measures 11.5 cm in length. Portal flow is normal. Shear wave liver elastography median stiffness is 1.65 m/s (reference: normal median stiffness is 1.3 m/s or less). IQR/median stiffness to assess sampling precision is 0.08 (reference: good quality data set is IQR/median stiffness of 0.15 or less). GALLBLADDER: Surgically absent. COMMON BILE DUCT: Not visualized. However, no dilated ducts are seen. RIGHT KIDNEY: Normal. No hydronephrosis. No renal calculi or focal parenchymal lesions. The kidney measures approximately 11 cm in maximum dimension. LEFT KIDNEY: Normal. No hydronephrosis. No renal calculi or focal parenchymal lesions. The kidney measures 12.1 cm in maximum dimension. SPLEEN: Normal. The spleen measures 10.3 cm in maximum dimension. FREE FLUID: None. US/US abdomen comp w elastography IMPRESSION: * Liver is diffusely hyperechoic. Findings are consistent with steatosis. No evidence of focal liver lesion. * Shear wave liver elastography reveals a median stiffness of 1.65 m/s (reference: normal median stiffness is 1.3 m/s or less). In the absence of other known clinical signs, this rules out compensated advanced chronic liver disease. REFERENCE: Society of Radiologists in Ultrasound Liver Stiffness Thresholds (2020): LIVER STIFFNESS THRESHOLDS: *Liver Stiffness equal or less than 1.3 m/s: High probability of being normal. *Liver Stiffness less than 1.7 m/s: In the absence of other known clinical signs, rules out compensated advanced chronic liver disease. *Liver Stiffness 1.7-2.1 m/s: Suggestive of compensated advanced chronic liver disease but need further test for confirmation. *Liver Stiffness over 2.1 m/s: Rules in compensated advanced chronic liver disease. *Liver Stiffness over 2.4 m/s: Suggestive of clinically significant portal hypertension. QUALITY OF DATA SET: *IQR/Median value equal or less than 0.15 implies a quality data set. *IQR/Median value over 0.15 implies a poor quality data set. OTHER CONSIDERATIONS: The stage of liver fibrosis may be overestimated in the setting of acute hepatitis, liver inflammation, elevated liver function tests, hepatic vascular congestion, obstructive cholestasis, non-fasting state, and infiltrative diseases such as amyloidosis and lymphoma. In some patients with NAFLD, the liver stiffness thresholds for compensated advanced chronic liver disease may be lower. In causes other than viral hepatitis and NAFLD, liver stiffness thresholds are not well established.
== END 2023-08-20 08:58 | disposition home or self-care (01) ==
LOC: HO.US 08:57
PROVIDERS: PCP Internal Medicine; Visit Provider Nurse Practitioner
DX: R74.01 Elevation of levels of liver transaminase levels (principal); E66.01 Morbid (severe) obesity due to excess calories; G47.33 Obstructive sleep apnea (adult) (pediatric)
CPT/HCPCS: 76700; 76981

== ENCOUNTER 2023-09-23 15:36 | Outpatient (AMB) | payer MEDICAID, SELFPAY ==
[2023-09-23 15:38] VITALS: BP 132/67; PULSE 94; BMI 43.2
--- NOTE | 2023-09-23 15:38 | A.OFFVIS_ITS ---
Vital Signs 09/23/23 15:38 Height 5 ft 7 in Weight 276 lb 0.3 oz BMI 43.2 BP 132/67 Blood Pressure Location Lt brachial Position Sitting Pulse 94 Intake Visit Reasons: 8 week follow up Intake Note: Patient in office for 8 weeks follow up of labs. CC: Patient denies having any GI symptoms today. 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: No Allergies clindamycin [CLINDAMYCIN] Allergy (Intermediate, Verified 09/23/23 15:42) SWELLING HPI HPI 8 week follow up: Details: Assessment & Plan (1) Transaminitis: Comment: Baseline labs 01/15/23 WBC 9.4 Hgb 15.0 Hct 46.2 Plt Count 341 Estimated GFR > 60 Total Bilirubin 0.8 AST 69 H ALT 87 H Alkaline Phosphatase 51 Hepatitis A IgM Ab Nonreactive Hep Bs Antigen Negative Hep Bs Antibody NONREACTIVE Hep B Core Total Ab Nonreactive Hepatitis C Ab (EIA) Nonreactive Anti-Mitochondrial Ab NEGATIVE Anti-Smooth Muscle Ab <20 CURRENT LABS ULTRASOUND Code(s): R74.01 - Elevation of levels of liver transaminase levels (2) Morbid obesity: Code(s): E66.01 - Morbid (severe) obesity due to excess calories (3) Obstructive sleep apnea: Code(s): G47.33 - Obstructive sleep apnea (adult) (pediatric) Plan His LFT's have been rising since 2019 he has gained 50-60 lbs. THis was r/t stress eating. His sister has fatty liver. He does not drink ETOH. He does not have any signs or symptoms of liver disease. No diarrheal sx. NO systemic sx. He is morbidly obese so this could be GUTIERREZ and this was explained to him however will need to rule out any other overlapping pathology that is reversible. Get labs and US with elast. Return office visit in 8 weeks Orders: Orders Gamma Glutamyl Transpeptidase 07/29/23 R74.01 - Elevation of levels of liver transaminase levels, E66.01 - Morbid (severe) obesity due to excess calories, G47.33 - Obstructive sleep apnea (adult) (pediatric) US abdomen comp w elastography 07/29/23 R74.01 - Elevation of levels of liver transaminase levels, E66.01 - Morbid (severe) obesity due to excess calories, G47.33 - Obstructive sleep apnea (adult) (pediatric) Ferritin 07/29/23 R74.01 - Elevation of levels of liver transaminase levels, E66.01 - Morbid (severe) obesity due to excess calories, G47.33 - Obstructive sleep apnea (adult) (pediatric) Liver Panel 07/29/23 R74.01 - Elevation of levels of liver transaminase levels, E66.01 - Morbid (severe) obesity due to excess calories, G47.33 - Obstructive sleep apnea (adult) (pediatric) Ceruloplasmin 07/29/23 R74.01 - Elevation of levels of liver transaminase levels, E66.01 - Morbid (severe) obesity due to excess calories, G47.33 - Obstructive sleep apnea (adult) (pediatric) HIV Ab/Ag 07/29/23 R74.01 - Elevation of levels of liver transaminase levels, E66.01 - Morbid (severe) obesity due to excess calories, G47.33 - Obstructive sleep apnea (adult) (pediatric) LABS: Laboratory Tests 07/29/23 16:15 Ferritin 365 H Total Bilirubin 0.5 Direct Bilirubin 0.2 GGT 41 AST 34 ALT 68 H Alkaline Phosphatase 55 Ceruloplasmin 39 H HIV 1&2 Ab/P24 Ag 4thGn Nonreactive 07/30/23-1607 [facility] DR: Latricia Palmer MD ORDERED: HemoDNA Test Result Flag Reference DNA Anal. Hemo See Below RESULT: NEGATIVE Interpretation: DNA testing indicates that this individual is negative for the C282Y and H63D pathogenic variants in the HFE gene. This negative result significantly reduces the likelihood of hereditary hemochromatosis (HH) in this individual. However, it does not rule out the presence of other pathogenic variants within the HFE gene or a diagnosis of HH. The risk of this individual to carry an HFE pathogenic variant other than those tested in this assay depends greatly on family and clinical history as well as ethnicity. This assay does not test for other primary or secondary iron overload disorders. Laboratory testing supervised and results monitored by Alisa Hedrick, Ph.D., [facility], [facility] DETAILED ASSAY INFORMATION: Hereditary hemochromatosis (HH) is an autosomal recessive disorder of iron metabolism that can result in iron overload and potential organ failure. It is one of the most common genetic disorders in individuals of - ancestry, with an estimated carrier frequency of 10%. HH is caused by pathogenic variants in the HFE gene. Most individuals with HH (60-90%) are homozygous for the C282Y pathogenic variant. A smaller percentage of affected individuals are either compound heterozygous for the C282Y and H63D pathogenic variants (3%-8%), or homozygous for the H63D pathogenic variant (appr oximately ULTRASOUND OF THE ABDOMEN WITH ELASTOGRAPHY 08/25/23 (F0-F1) FINDINGS: PANCREAS: Normal. ABDOMINAL AORTA: The proximal, middle, and distal aortic segments are normal in caliber. INFERIOR VENA CAVA: Visualized portions are normal. LIVER: Liver has normal size and contour. The parenchyma is diffusely hyperechoic and there is limited acoustic penetration through the parenchyma. Findings are consistent with diffuse steatosis. No focal liver lesion or intrahepatic ductal dilatation. The right lobe measures 16.3 cm in length. The left lobe measures 11.5 cm in length. Portal flow is normal. Shear wave liver elastography median stiffness is 1.65 m/s (reference: normal median stiffness is 1.3 m/s or less). IQR/median stiffness to assess sampling precision is 0.08 (reference: good quality data set is IQR/median stiffness of 0.15 or less). GALLBLADDER: Surgically absent. COMMON BILE DUCT: Not visualized. However, no dilated ducts are seen. RIGHT KIDNEY: Normal. No hydronephrosis. No renal calculi or focal parenchymal lesions. The kidney measures approximately 11 cm in maximum dimension. LEFT KIDNEY: Normal. No hydronephrosis. No renal calculi or focal parenchymal lesions. The kidney measures 12.1 cm in maximum dimension. SPLEEN: Normal. The spleen measures 10.3 cm in maximum dimension. FREE FLUID: None. US/US abdomen comp w elastography IMPRESSION: * Liver is diffusely hyperechoic. Findings are consistent with steatosis. No evidence of focal liver lesion. * Shear wave liver elastography reveals a median stiffness of 1.65 m/s (reference: normal median stiffness is 1.3 m/s or less). In the absence of other known clinical signs, this rules out compensated advanced chronic liver disease. CORRESPONDENCE On 07/30/23 @ 07:52 Denise Morales Wrote To Denise Morales (2) Can you please call the patient and tell him since his iron level is elevated in his liver I am ordering another test. It is a hemochromatosis screening and I am sorry to make him come back for another blood draw. This is nothing terribly serious and very treatable if this is what is going on. New Orders DNA Analysis Hemochromatosis Determined by Patient 07/30/23 TODAY'S VISIT He suffers fatigue, but treats his VANESSA with CPAP. I don't think his fatigue is r/t his liver, as his labs are quite mild. With all of the tests in this nice gentleman with a BMI over 40 likely has GUTIERREZ. He is educated and material for patient education is given. ROV 6 mos. PFSH Medical History (Updated 09/23/23 @ 16:57 by HALEIGH Cabral) Transaminitis DJD (degenerative joint disease) Anxiety Morbid obesity Depression Sleep apnea Surgical History (Updated 09/23/23 @ 16:54 by HALEIGH Cabral) S/P medial meniscus repair of left knee Hx of knee surgery Hx of cholecystectomy History of tonsillectomy Family History Mother Diabetes Arthritis Father No problems noted. Brother No problems noted. Brother No problems noted. Sister No problems noted. Sister No problems noted. Son ADHD Son No problems noted. Daughter No problems noted. Daughter No problems noted. 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 Review of Systems Const Reports fatigue, Denies fever(s), Denies night sweats, Denies poor appetite and Denies weight loss ENT Reports Normal hearing present, Denies dental pain, Denies dysphagia, Denies hearing loss, Denies mouth pain, Denies odynophagia, Denies throat swelling, Denies tongue swelling and Reports other (Dentition adequate) Card Reports no additional complaints Resp Reports no additional complaints GI Details: Denies abdominal pain, Denies melena, Denies bloating, Denies hematochezia, Denies constipation, Denies GI cramping, Denies dysphagia, Denies excessive flatus, Denies early satiety, Denies heartburn, Denies diarrhea, Denies nausea, Denies odynophagia, Denies vomiting and Denies hematemesis Skin/Breast Denies pruritus, Denies lesions, Denies rash and Denies jaundice Neuro Reports Normal hearing present and Denies Abnormal speech present Endo Reports fatigue Aller/Immun Denies throat swelling and Denies tongue swelling Physical Exam Vital Signs: Last Vital Signs Pulse 94 09/23/23 15:38 BP 132/67 09/23/23 15:38 BMI result Body Mass Index 43.2 Const General: cooperative, no acute distress, well developed and well groomed Nutritional Appearance: well nourished and obese morbidly obese Orientation/consciousness: oriented to person, oriented to place and oriented to time Limitations: No language barrier HEENT Head: Yes normocephalic and Yes atraumatic Eyes General: appearance normal, both eyes and all related structures Pupils: Equal, round and reactive pupils present Neck Neck: Yes normal visual inspection and Yes no lymphadenopathy Thyroid: Thyroid normal Resp Effort & Inspection: normal respiratory effort and able to speak in complete sentences Auscultation: clear to auscultation bilaterally Cardio Rate: regular rate Rhythm: regular rhythm Heart sounds: Normal, physiologic split S2 sound present Peripheral pulses: radial pulses present and posterior tibial pulses present GI Inspection: No distended, No Abdominal panniculus present and Yes obesity Palpation (GI): Soft to palpation, nontender, no guarding, not rigid and No hepatosplenomegaly present Percussion: Yes normal to percussion Auscultation: normal bowel sounds Rectal Exam - Male: Yes deferred Skin General skin exam: no rashes or lesions noted, turgor normal, skin not dry, no jaundice, No spider nevi and no striae Rashes: no rashes Nails: normal Neuro General: oriented to person, oriented to place and oriented to time Cranial nerves: Yes Equal, round and reactive pupils present and Yes Normal hearing present Speech: No Abnormal speech present Extrem General: Yes normal to inspection, No clubbing, No cyanosis and No edema Psych Appearance: grossly normal and well kempt Mental Status: mental status grossly normal Speech and movement: Normal speech and movement present Affect: normal affect Attitude: cooperative Thought process: Normal thought process present and not confabulating Thought content: Normal thought content present Insight: Fair insight present (Psych) and Limited insight present (Psych) Judgement: Fair judgement present (Psych) and Limited judgement present (Psych) Results Reviewed Results Reviewed: Laboratory Tests 07/29/23 16:15 Ferritin 365 H Total Bilirubin 0.5 Direct Bilirubin 0.2 GGT 41 AST 34 ALT 68 H Alkaline Phosphatase 55 Ceruloplasmin 39 H HIV 1&2 Ab/P24 Ag 4thGn Nonreactive 07/30/23-[address]: Latricia Palmer MD ORDERED: HemoDNA Test Result Flag Reference DNA Anal. Hemo See Below RESULT: NEGATIVE Interpretation: DNA testing indicates that this individual is negative for the C282Y and H63D pathogenic variants in the HFE gene. This negative result significantly reduces the likelihood of hereditary hemochromatosis (HH) in this individual. However, it does not rule out the presence of other pathogenic variants within the HFE gene or a diagnosis of HH. The risk of this individual to carry an HFE pathogenic variant other than those tested in this assay depends greatly on family and clinical history as well as ethnicity. This assay does not test for other primary or secondary iron overload disorders. Laboratory testing supervised and results monitored by Alisa Hedrick, Ph.D., [facility], [facility] DETAILED ASSAY INFORMATION: Hereditary hemochromatosis (HH) is an autosomal recessive disorder of iron metabolism that can result in iron overload and potential organ failure. It is one of the most common genetic disorders in individuals of - ancestry, with an estimated carrier frequency of 10%. HH is caused by pathogenic variants in the HFE gene. Most individuals with HH (60-90%) are homozygous for the C282Y pathogenic variant. A smaller percentage of affected individuals are either compound heterozygous for the C282Y and H63D pathogenic variants (3%-8%), or homozygous for the H63D pathogenic variant (approximately ULTRASOUND OF THE ABDOMEN WITH ELASTOGRAPHY 03/26/24 (F0-F1) FINDINGS: PANCREAS: Normal. ABDOMINAL AORTA: The proximal, middle, and distal aortic segments are normal in caliber. INFERIOR VENA CAVA: Visualized portions are normal. LIVER: Liver has normal size and contour. The parenchyma is diffusely hyperechoic and there is limited acoustic penetration through the parenchyma. Findings are consistent with diffuse steatosis. No focal liver lesion or intrahepatic ductal dilatation. The right lobe measures 16.3 cm in length. The left lobe measures 11.5 cm in length. Portal flow is normal. Shear wave liver elastography median stiffness is 1.65 m/s (reference: normal median stiffness is 1.3 m/s or less). IQR/median stiffness to assess sampling precision is 0.08 (reference: good quality data set is IQR/median stiffness of 0.15 or less). GALLBLADDER: Surgically absent. COMMON BILE DUCT: Not visualized. However, no dilated ducts are seen. RIGHT KIDNEY: Normal. No hydronephrosis. No renal calculi or focal parenchymal lesions. The kidney measures approximately 11 cm in maximum dimension. LEFT KIDNEY: Normal. No hydronephrosis. No renal calculi or focal parenchymal lesions. The kidney measures 12.1 cm in maximum dimension. SPLEEN: Normal. The spleen measures 10.3 cm in maximum dimension. FREE FLUID: None. US/US abdomen comp w elastography IMPRESSION: * Liver is diffusely hyperechoic. Findings are consistent with steatosis. No evidence of focal liver lesion. * Shear wave liver elastography reveals a median stiffness of 1.65 m/s (reference: normal median stiffness is 1.3 m/s or less). In the absence of other known clinical signs, this rules out compensated advanced chronic liver disease Assessment & Plan Assessment & Plan (1) Elevated ferritin: Code(s): R79.89 - Other specified abnormal findings of blood chemistry Category: Medical (2) Morbid obesity: Code(s): E66.01 - Morbid (severe) obesity due to excess calories Category: Medical (3) GUTIERREZ (nonalcoholic steatohepatitis): Comment: Baseline labs 01/15/23 WBC 9.4 Hgb 15.0 Hct 46.2 Plt Count 341 Estimated GFR > 60 Total Bilirubin 0.8 AST 69 H ALT 87 H Alkaline Phosphatase 51 Hepatitis A IgM Ab Nonreactive Hep Bs Antigen Negative Hep Bs Antibody NONREACTIVE Hep B Core Total Ab Nonreactive Hepatitis C Ab (EIA) Nonreactive Anti-Mitochondrial Ab NEGATIVE Anti-Smooth Muscle Ab <20 Hemochromatosis screen was negative ULTRASOUND OF THE ABDOMEN WITH ELASTOGRAPHY 08/25/23 (F0-F1 CURRENT LABS 07/29/23 16:15 Ferritin 365 H Total Bilirubin 0.5 Direct Bilirubin 0.2 GGT 41 AST 34 ALT 68 H Alkaline Phosphatase 55 Ceruloplasmin 39 H HIV 1&2 Ab/P24 Ag 4thGn Nonreactive ULTRASOUND OF THE ABDOMEN WITH ELASTOGRAPHY 08/25/23 (F0-F1) IMPRESSION: * Liver is diffusely hyperechoic. Findings are consistent with steatosis. No evidence of focal liver lesion. * Shear wave liver elastography reveals a median stiffness of 1.65 m/s (reference: normal median stiffness is 1.3 m/s or less). In the absence of other known clinical signs, this rules out compensated advanced chronic liver disease Code(s): K75.81 - Nonalcoholic steatohepatitis (GUTIERREZ) Category: Medical Plan He suffers fatigue, but treats his VANESSA with CPAP. I don't think his fatigue is r/t his liver, as his labs are quite mild. With all of the tests in this nice gentleman with a BMI over 40 likely has GUTIERREZ. He is educated and material for patient education is given. ROV 6 mos. Coding Level of Care Code Est Pt Level 3 (68473) Diagnoses Elevated ferritin R79.89 Morbid obesity E66.01 GUTIERREZ (nonalcoholic steatohepatitis) K75.81
== END 2023-09-23 16:07 | disposition home or self-care (01) ==
PROVIDERS: PCP Internal Medicine; Visit Provider Nurse Practitioner
DX: R79.89 Other specified abnormal findings of blood chemistry (principal); E66.01 Morbid (severe) obesity due to excess calories; K75.81 Nonalcoholic steatohepatitis (NASH)
CPT/HCPCS: 99213

== ENCOUNTER → 2023-09-23 15:36 | Outpatient (BNVA) | payer MEDICAID, SELFPAY | PROVIDERS: PCP Internal Medicine; Visit Provider Nurse Practitioner | DX: K75.81 Nonalcoholic steatohepatitis (NASH) (principal); R79.89 Other specified abnormal findings of blood chemistry; E66.01 Morbid (severe) obesity due to excess calories; Z68.41 Body mass index [BMI] 40.0-44.9, adult | CPT/HCPCS: 99212 ==

== ENCOUNTER 2023-11-04 12:03 | Outpatient (REF) | payer MEDICAID, SELFPAY ==
[2023-11-04 14:02] LABS: MANUAL DIFF FLAG NO
[2023-11-04 14:09] LABS: Estimated Average Glucose 111 mg/dL; Hemoglobin A1c % 5.5 % (<6.0)
[2023-11-04 14:11] LABS: Basophils Absolute Auto 0.1 X10*3/uL (0.0-0.2); Basophils Percent Auto 0.5 % (0-2); Eosinophils Absolute Auto 0.1 X10*3/uL (0.0-0.4); Eosinophils Percent Auto 0.8 % (0-4); Hematocrit 45.4 % (42.0-52.0); Hemoglobin 14.5 g/dl (14.0-18.0); Imm Gran Abs Auto 0.04 X10*3/uL (0.00-0.03); Imm Gran Pct Auto 0.4 % (0.0-0.4); Lymphocytes Absolute Auto 2.6 X10*3/uL (1.2-4.9); Lymphocytes Percent Auto 25.2 % (20-40); Mean Corpuscular HGB Conc 31.9 g/dl (31.0-36.0); Mean Corpuscular Hemoglobin 26.3 pg (27.0-33.0); Mean Corpuscular Volume 82.4 fL (80.0-98.0); Mean Platelet Volume 10.4 fL (9.4-12.4); Monocytes Absolute Auto 0.7 X10*3/uL (0.1-1.2); Monocytes Percent Auto 7.1 % (2-11); Neutrophils Absolute Auto 6.8 x10*3/uL (2.0-8.3); Platelet Count 382 X10*3/uL (160-400); Red Blood Count 5.51 X10*6/uL (4.60-5.80); Red Cell Distribution Width 13.2 % (11.0-16.0); White Blood Count 10.4 X10*3/uL (4.8-10.8)
[2023-11-04 14:38] LABS: Anion Gap 13 (12-20); Blood Urea Nitrogen 12 mg/dL (9-16); Calcium 9.7 mg/dL (8.4-10.2); Carbon Dioxide 26 mmol/L (22-29); Chloride 104 mmol/L (96-108); Cholesterol 149 mg/dL (<200); Estimated Glomerular Filt Rate > 60; Glucose Random 127 mg/dL (60-115); HDL Cholesterol 36 mg/dL (>40); Iron 59 mcg/dL (45-160); LDL Cholesterol Calculated 96 mg/dL (<100); Percent Iron Saturation 21 % (15-50); Sodium 139 mmol/L (135-145); Total Iron Binding Capacity 280 mcg/dL (228-428); Triglycerides 87 mg/dL (<150); Unsaturated Iron Binding 221 ug/dL
[2023-11-04 14:53] LABS: Vitamin B12 554 pg/mL (200-900)
[2023-11-04 14:57] LABS: TSH reflex Free T4 3.14 uIU/mL (0.32-4.0)
== END 2023-11-04 12:04 | disposition home or self-care (01) ==
LOC: HO.HHCL 12:03
PROVIDERS: Visit Provider Internal Medicine
DX: Z00.00 Encounter for general adult medical examination without abnormal findings (principal); G25.81 Restless legs syndrome
CPT/HCPCS: 36415; 80048; 80061; 82607; 83036; 83540; 84443; 85025

== ENCOUNTER → 2023-12-23 20:30 | Outpatient (REF) | payer MEDICAID, SELFPAY | LOC: HO.SL 20:30 | PROVIDERS: Visit Provider Internal Medicine | DX: Z13.89 Encounter for screening for other disorder (principal) ==

== ENCOUNTER 2024-01-07 17:51 | Emergency (ER) | payer MEDICAID, SELFPAY ==
--- NOTE | ~2024-01-07 | CT_ITS ---
EXAMINATION: CT ABDOMEN AND PELVIS WITHOUT CONTRAST CLINICAL INFORMATION: RUQ pain/ pressure. COMPARISON: No pertinent prior studies are available for comparison. TECHNIQUE: Multidetector volumetric imaging was performed from the superior aspect of the liver through the pubic symphysis without contrast per renal stone protocol. Sagittal and coronal reformatted images were obtained on the technologist workstation. This CT examination was performed using dose optimization techniques as appropriate, variously including the following: *Automated exposure control *Adjustment of mA and/or kV according to patient size (this includes techniques or standardized protocols for targeted exams where dose is matched to indication/reason for exam; i.e. extremities or head) *Use of iterative reconstruction technique DLP: 1204 mGy-cm. FINDINGS: LUNG BASES: The visualized lung bases are unremarkable. LIVER, GALLBLADDER, BILIARY TREE: Mild diffuse fatty infiltration of the liver but no focal hepatic lesion nor biliary ductal dilatation. Gallbladder surgically absent PANCREAS: Unremarkable. SPLEEN: Unremarkable. ADRENAL GLANDS: Unremarkable. KIDNEYS AND URETERS: The kidneys are normal in size, shape, and attenuation. No hydronephrosis, hydroureter, or perinephric stranding. No calculi. BLADDER: Unremarkable. GASTROINTESTINAL TRACT: The small and large bowel are unremarkable. The appendix is unremarkable. ABDOMINAL WALL: No significant hernia is appreciated. LYMPHOVASCULAR STRUCTURES: No lymphadenopathy. The aorta is unremarkable.. PELVIC VISCERA: Unremarkable. OSSEUS STRUCTURES: Unremarkable. CT/CT abdomen pelvis wo IV con IMPRESSION: No acute intra-abdominal process seen. Mild diffuse fatty infiltration of the liver.
[2024-01-07 18:10] VITALS: BP 151/86; PULSE 92; RESP 18; TEMP 37.1; O2SAT 95; BMI 43.9
--- NOTE | 2024-01-07 18:11 | ED.ABDPAIN ---
HPI - Abdominal Pain General Chief Complaint: Abdominal Pain Stated Complaint: R sided abd pressure/ pain. month and a half Time Seen by Provider: 01/07/24 22:38 Source: patient Mode of arrival: ambulatory Limitations: no limitations History of Present Illness ED Provider: Herlinda HPI narrative: Patient is a 38-year-old male with history of cholecystectomy in 2016, GUTIERREZ, obesity, anxiety and depression, VANESSA presenting to the emergency department with complaint of colicky right upper quadrant abdominal pain for the past month. States the pain is always present but ranges in intensity. Worsens with any eating. Has not seen his PCP for these symptoms. Reports nausea but denies vomiting. Denies diarrhea or constipation. Denies fevers. Denies urinary symptoms. Denies back or flank pain. Has not taken any [id number] medications for his symptoms. MD elicited complaint: abdominal pain Onset (ago): week(s) Pain Consistency: colicky Location: RUQ Quality: dull Radiation: none Migration to: no migration Exacerbating factors: eating Relieving factors: nothing Associated symptoms: nausea Related Data Home Medications ?Medication ?Instructions ?Recorded ?Confirmed hydroxyzine HCl 25 mg tablet 25 - 50 mg PO Q8H PRN anxiety 04/14/22 05/27/23 bupropion HCl 300 mg 24 hr tablet, 300 mg PO DAILY 07/29/23 extended release ziprasidone HCl 80 mg capsule 80 mg PO BID 09/23/23 Previous Rx's ?Medication ?Instructions ?Recorded melatonin 3 mg tablet See Rx Instructions PO BEDTIME PRN 01/20/23 sleep 30 days #60 tabs famotidine 10 mg tablet 10 mg PO BID #14 tabs 01/08/24 sucralfate 1 gram tablet 1 g PO TID #15 tabs 01/08/24 Allergies Allergy/AdvReac Type Severity Reaction Status Date / Time clindamycin [CLINDAMYCIN] Allergy Intermediate SWELLING Verified 01/07/24 18:11 Review of Systems Review of Systems As per HPI. Yes all other systems are reviewed and are negative Constitutional: Reports as per HPI [facility] Past Medical History Medical History (Updated 01/08/24 @ 00:03 by Bertha Pate NP) Transaminitis DJD (degenerative joint disease) Anxiety Morbid obesity Depression Sleep apnea Surgical History (Updated 09/23/23 @ 16:54 by Denise Morales, ANP-C) S/P medial meniscus repair of left knee Hx of knee surgery Hx of cholecystectomy History of tonsillectomy Family History Family History Mother Diabetes Arthritis Father No problems noted. Brother No problems noted. Brother No problems noted. Sister No problems noted. Sister No problems noted. Son ADHD Son No problems noted. Daughter No problems noted. Daughter No problems noted. 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 Blood pressure normal. Heart rate normal. Respiratory rate normal. Temperature normal. Oxygen saturation normal. Const General: cooperative and no acute distress Orientation/consciousness: oriented to person, oriented to place, oriented to time and patient oriented x3 Limitations: no limitations [facility] Head: Yes normocephalic and Yes atraumatic Ears: external ears normal General nose exam: Normal external nose present Face and sinus: Yes face symmetric Mouth: oropharynx normal and moist mucous membranes Throat: Yes uvula midline Eyes Pupils: Equal, round and reactive pupils present Neck Neck: Yes normal visual inspection and Yes supple Resp Effort & Inspection: normal respiratory effort and able to speak in complete sentences Auscultation: clear to auscultation bilaterally Cardio Rate: regular rate Rhythm: regular rhythm Heart sounds: S1 normal heart sound present and S2 normal heart sound present GI Palpation (GI): Soft to palpation and Tenderness to palpation present (GI) in the RUQ (mild); Perry's sign negative Auscultation: normoactive bowel sounds General: Yes no CVA tenderness Back/Spine/Pelvis Back: no CVA tenderness Skin General skin exam: elasticity normal and turgor normal Neuro General: oriented to person, oriented to place, oriented to time, patient oriented x3, moves all extremities, no focal motor deficits and CN's II-XI intact bilaterally Cranial nerves: Yes Equal, round and reactive pupils present Cognition (Neuro): normal cognition Extrem General: Yes full ROM, Yes no pedal edema and Yes no calf tenderness Psych Mental Status: mental status grossly normal Affect: normal affect Thought process: Normal thought process present Course Course Course Narrative: This is a Rapid Medical Examination (RME) performed by Zion Sebastian PA-C in triage. Full HPI, ROS, assessment and treatment plan per primary provider in the Main ED. 38 yo male hx of anxiety, depression, VANESSA, rheumatoid arthritis, GUTIERREZ here for eval of RUQ pressure, constant x1 mo. not worse w/ eating. admits to nausea w/o vomiting. no ilicit substance use or etoh consumption. denies fever/ chills, constipation, diarrhea. + well appearing. abd soft, nd/nt. Plan: labs, ua, ct Medical Decision Making Medical Decision Making MDM Narrative: Patient is a 38-year-old male with history of cholecystectomy in 2016, GUTIERREZ, obesity, anxiety and depression, VANESSA presenting to the emergency department with complaint of colicky right upper quadrant abdominal pain for the past month. On exam patient is awake, A+Ox3, VS WNL, afebrile, normal neurological exam without focal deficits, physical exam findings as above. Given reported symptoms and physical exam findings, initial differential includes hepatitis, cholangitis, biliary colic, PUD, GERD, gastritis. Labs notable for mild leukocytosis, otherwise unremarkable, normal transaminases. CT A/P notable for mild fatty infiltration of liver without acute abnormalities. My interpretation is in agreement with the radiologist's interpretation. Urine is without evidence of infection. Results discussed with patient and all questions answered. Will refer to GI for further evaluation of symptoms. Advised patient to follow up with primary care provider as well. Will send prescriptions for sucralfate and famotidine and advised patient to update his PCP/GI if these medications were helpful in decreasing his symptoms. Return precautions discussed at bedside. Patient verbalized understanding of and agreement with plan. Differential Diagnosis Differential Diagnoses: The differential diagnosis associated with the presentation includes As per [facility]. Admission/Observation Consideration of admission/observation: Escalation of care including admission/observation considered Patient would have been admitted to the hospital had their work up had any findings where hospital admission was appropriate and their clinical presentation warranted hospital admission. Lab Data [facility] Lab Attestation statement: I reviewed the patient's lab results. [facility] per [facility] 01/07/24 18:29 01/07/24 18:29 Labs: Lab Results 01/07/24 01/07/24 Range/Units 18:26 18:29 WBC 12.2 H (4.8-10.8) X10*3/uL RBC 5.54 (4.60-5.80) X10*6/uL Hgb 14.5 (14.0-18.0) g/dl Hct 44.7 (42.0-52.0) % MCV 80.7 (80.0-98.0) fL MCH 26.2 L (27.0-33.0) pg MCHC 32.4 (31.0-36.0) g/dl RDW 13.8 (11.0-16.0) % Plt Count 336 (160-400) X10*3/uL MPV 9.6 (9.4-12.4) fL Immature Gran % (Auto) 0.3 (0.0-0.4) % Neut % (Auto) 71.2 (45-73) % Lymph % (Auto) 20.8 (20-40) % [place] % (Auto) 6.8 (2-11) % Eos % (Auto) 0.6 (0-4) % Baso % (Auto) 0.3 (0-2) % Lymph # (Auto) 2.5 (1.2-4.9) X10*3/uL [place] # (Auto) 0.8 (0.1-1.2) X10*3/uL Eos # (Auto) 0.1 (0.0-0.4) X10*3/uL Baso # (Auto) 0.0 (0.0-0.2) X10*3/uL Abs Immat Gran (auto) 0.04 H (0.00-0.03) X10*3/uL Absolute Neuts (auto) 8.7 H (2.0-8.3) x10*3/uL Absolute Nucleated RBC 0.000 (0.0-0.012) X10*3/uL Nucleated RBC % (auto) 0.0 (0.0-0.2) /100WBC Sodium 141 (135-145) mmol/L Potassium 4.1 (3.3-5.1) mmol/L Chloride 104 (96-108) mmol/L Carbon Dioxide 27 (22-29) mmol/L Anion Gap 14 (12-20) BUN 12 (9-16) mg/dL Creatinine 1.11 (0.5-1.4) mg/dL Estim Creat Clear Calc 117.7 Estimated GFR > 60 Random Glucose 116 H (60-115) mg/dL Calcium 9.5 (8.4-10.2) mg/dL Magnesium 2.1 (1.6-2.6) mg/dL Total Bilirubin 0.3 (0.0-1.0) mg/dL AST 24 (5-37) U/L ALT 39 (0-40) U/L Alkaline Phosphatase 59 (39-117) U/L Total Protein 7.4 (6.5-8.0) g/dL Albumin 4.6 (3.5-5.0) g/dL Lipase 23 (8-78) U/L Urine Color Yellow Urine Appearance Clear Urine pH 5.5 (5.0-9.0) Ur Specific [place] 1.025 (1.005-1.025) Urine Protein Negative (Neg-Trace) mg/dL Urine Glucose (UA) Negative (Negative) mg/dL Urine Ketones Trace (Negative) mg/dL Urine Blood Negative (Negative) Urine Nitrite Negative (Negative) Ur Leukocyte Esterase Negative (Negative) Independent Interpretation I performed an independent interpretation of an: CT Scan Interpretation: CT A/P notable for mild fatty infiltration of liver without acute abnormalities. Radiology Impression Discussion of test interpretation with radiology: I have reviewed the radiologist's reading. Radiologist Impression: CT/CT abdomen pelvis wo IV con IMPRESSION: No acute intra-abdominal process seen. Mild diffuse fatty infiltration of the liver. External Record Review External record reviewed: Inpatient record, Office record and Outpatient record Prescription Management I considered prescription management with: Other Discharge Plan Discharge Clinical Impression: Abdominal pain Patient Disposition: Home, Self-Care Instructions: Abdominal Pain (ED) Additional Instructions: You have been evaluated in the emergency department today for abdominal pain. Your evaluation did not show evidence of medical conditions requiring emergent intervention at this time. You are being prescribed medications, please take these as directed. You are being referred to the fruit or nut crops farm manager for further evaluation of your symptoms, please call their office to schedule an appointment they will not call you. Please schedule an appointment with your primary care physician as well. Return to the emergency department if you experience worsening or uncontrolled pain, fevers 100.4? F or greater, recurrent vomiting, inability to tolerate food or fluids by mouth, bloody stools or vomit, black or tarry stools, or any other concerning symptoms. Prescriptions: New sucralfate 1 gram tablet 1 g PO TID Qty: 15 0RF Rx Instructions: Take 1 hour before meals famotidine 10 mg tablet 10 mg PO BID Qty: 14 0RF No Action hydroxyzine HCl 25 mg tablet 25 - 50 mg PO Q8H PRN (Reason: anxiety) melatonin 3 mg tablet See Rx Instructions PO BEDTIME PRN (Reason: sleep) 30 Days Qty: 60 1RF Rx Instructions: 1-2 tabs orally bedtime PRN; bupropion HCl 300 mg tablet extended release 24 hr 300 mg PO DAILY ziprasidone HCl 80 mg capsule 80 mg PO BID Referrals: [facility] [Provider Group] Print Language: Pashto
[2024-01-07 18:41] LABS: MANUAL DIFF FLAG NO
[2024-01-07 18:43] LABS: Appearance Urine Clear; Color Urine Yellow; Glucose Urine UA Negative (Negative); Leukocyte Esterase Urine Negative (Negative); Nitrite Urine Negative (Negative); PH 5.5 (5.0-9.0); Specific Gravity - Urine 1.025 (1.005-1.025); Urine Blood Negative (Negative); Urine Ketones Trace mg/dL (Negative); Urine Protein Negative (Neg-Trace)
[2024-01-07 18:43] LABS: Basophils Percent Auto 0.3 % (0-2); Eosinophils Absolute Auto 0.1 X10*3/uL (0.0-0.4); Eosinophils Percent Auto 0.6 % (0-4); Hematocrit 44.7 % (42.0-52.0); Hemoglobin 14.5 g/dl (14.0-18.0); Imm Gran Abs Auto 0.04 X10*3/uL (0.00-0.03); Imm Gran Pct Auto 0.3 % (0.0-0.4); Lymphocytes Absolute Auto 2.5 X10*3/uL (1.2-4.9); Lymphocytes Percent Auto 20.8 % (20-40); Mean Corpuscular HGB Conc 32.4 g/dl (31.0-36.0); Mean Corpuscular Hemoglobin 26.2 pg (27.0-33.0); Mean Corpuscular Volume 80.7 fL (80.0-98.0); Mean Platelet Volume 9.6 fL (9.4-12.4); Monocytes Absolute Auto 0.8 X10*3/uL (0.1-1.2); Monocytes Percent Auto 6.8 % (2-11); Neutrophils Absolute Auto 8.7 x10*3/uL (2.0-8.3); Neutrophils Percent Auto 71.2 % (45-73); Platelet Count 336 X10*3/uL (160-400); Red Blood Count 5.54 X10*6/uL (4.60-5.80); Red Cell Distribution Width 13.8 % (11.0-16.0); White Blood Count 12.2 X10*3/uL (4.8-10.8)
[2024-01-07 18:57] LABS: Alanine Aminotransferase 39 U/L (0-40); Albumin Level 4.6 g/dL (3.5-5.0); Alkaline Phosphatase 59 U/L (39-117); Anion Gap 14 (12-20); Aspartate Amino Transferase 24 U/L (5-37); Bilirubin Total 0.3 mg/dL (0.0-1.0); Blood Urea Nitrogen 12 mg/dL (9-16); Calcium 9.5 mg/dL (8.4-10.2); Carbon Dioxide 27 mmol/L (22-29); Chloride 104 mmol/L (96-108); Creatinine Clr Calc Pharmacy 117.7; Estimated Glomerular Filt Rate > 60; Glucose Random 116 mg/dL (60-115); Lipase 23 U/L (8-78); Magnesium 2.1 mg/dL (1.6-2.6); Potassium 4.1 mmol/L (3.3-5.1); Sodium 141 mmol/L (135-145); Total Protein 7.4 g/dL (6.5-8.0)
[2024-01-07 22:23] VITALS: BP 135/81; PULSE 82; RESP 16; TEMP 36.9; O2SAT 98
[2024-01-08 00:13] VITALS: BP 135/81; PULSE 82; RESP 16; TEMP 36.9; O2SAT 98
== END 2024-01-08 00:14 | disposition home or self-care (01) ==
PROVIDERS: Physician Assistant Medical; Emergency Provider Emergency Medicine; PCP Internal Medicine
DX: R10.11 Right upper quadrant pain (principal)
CPT/HCPCS: 36415; 74176; 80053; 81003; 83690; 83735; 85025; 99284

== ENCOUNTER 2024-04-21 15:32 | Outpatient (AMB) | payer BC, SELFPAY ==
--- NOTE | 2024-04-21 15:29 | A.OFFVIS_ITS ---
Vital Signs 04/21/24 15:30 Height 5 ft 7 in Weight 293 lb BMI 45.9 Intake Visit Reasons: 1yr f/u appt for sleep Intake Note: Patient presents for 1 year follow up Allergies clindamycin [CLINDAMYCIN] Allergy (Intermediate, Verified 04/21/24 15:32) SWELLING Medication List - Last Reconciled 04/21/24 by Nina Alvarez MD bupropion HCl XL 300 mg PO DAILY famotidine 10 mg PO BID hydroxyzine HCl 25 - 50 mg PO Q8H PRN melatonin 1-2 tabs orally bedtime PRN; 30 days sucralfate 1 g PO TID ziprasidone HCl 80 mg PO BID HPI Comments Details: 39 y/o male patient presents for follow up of VANESSA on CPAP. He had a repeat study in Dec 2023 for residual symptoms AHI 22 REM AHI 34 O2 [place]ta 84 He stopped using CPAP 4 mths ago due to discomfort and residual symptoms PFSH Medical History Transaminitis DJD (degenerative joint disease) Anxiety Morbid obesity Depression Sleep apnea Surgical History S/P medial meniscus repair of left knee Hx of knee surgery Hx of cholecystectomy History of tonsillectomy Family History Mother Diabetes Arthritis Father No problems noted. Brother No problems noted. Brother No problems noted. Sister No problems noted. Sister No problems noted. Son ADHD Son No problems noted. Daughter No problems noted. Daughter No problems noted. 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 Review of Systems ENT Reports Normal hearing present Neuro Reports Normal hearing present Physical Exam Vital Signs: BMI result Body Mass Index 45.9 Const General: cooperative Nutritional Appearance: obese Orientation/consciousness: patient oriented x3 Eyes Pupils: Equal, round and reactive pupils present Neck Neck: Yes full ROM and Yes supple Resp Effort & Inspection: normal respiratory effort and able to speak in complete sentences Neuro General: patient oriented x3, gait normal and moves all extremities Cranial nerves: Yes Equal, round and reactive pupils present, Yes Bilaterally intact EOM present, Yes Normal facial strength present, Yes Midline tongue prese nt, Yes Symmetric palate elevation present and Yes Normal hearing present Cognition (Neuro): normal cognition Gait exam (Neuro): Normal gait present Motor exam (neuro): 5/5 motor strength present throughout and Pronator motor function not present Psych Appearance: grossly normal Mental Status: mental status grossly normal Affect: normal affect Attitude: cooperative Assessment & Plan Assessment & Plan (1) Obstructive sleep apnea: Comment: severe AHI 22 REM AHI 34 O2 alta 84 % Code(s): G47.33 - Obstructive sleep apnea (adult) (pediatric) Category: Medical (2) Obesity: Comment: He was seen at weight management clinic but he declined surgery Code(s): E66.9 - Obesity, unspecified Category: Medical Qualifiers: Obesity type: due to excess calories Obesity classification: adult class 3 (BMI >= 40) Serious obesity comorbidity presence: with serious comorbidity Body mass index: BMI 45.0-49.9 Qualified Code(s): E66.813 - Obesity, class 3; E66.01 - Morbid (severe) obesity due to excess calories; Z68.42 - Body mass index [BMI] 45.0-49.9, adult Plan I suggested a CPAP titration study but he declined. He whitehead snot think CPAP works for him His BMI is over the limit for treatment with INSPIRE ( hypglossal nerve stimulation) I will refer him for DISE and suggested to retrial CPAP in the meantime. Orders: Referrals Ear/Nose/Throat Referral G47.33 - Obstructive sleep apnea (adult) (pediatric) Medications: Discontinued melatonin Discontinued Reason: Patient no longer taking 1-2 tabs orally bedtime PRN; 30 days 60 tabs 1RF sleep Coding Level of Care Code Est Pt Level 4 (14449) Complex EM visit Add On G2211 Diagnoses Obstructive sleep apnea G47.33 Class 3 severe obesity due to excess calories with serious comorbidity and body mass index (BMI) of 45.0 to 49.9 in adult E66.813; E66.01; Z68.42 Obesity type: due to excess calories Obesity classification: adult class 3 (BMI >= 40) Serious obesity comorbidity presence: with serious comorbidity Body mass index: BMI 45.0-49.9
[2024-04-21 15:30] VITALS: BMI 45.9
== END 2024-04-21 15:57 | disposition home or self-care (01) ==
PROVIDERS: Absent Provider Psychiatry & Neurology Neurology; PCP Internal Medicine; Visit Provider Psychiatry & Neurology Neurology
DX: G47.33 Obstructive sleep apnea (adult) (pediatric) (principal); E66.813 Obesity, class 3; E66.01 Morbid (severe) obesity due to excess calories; Z68.42 Body mass index [BMI] 45.0-49.9, adult
CPT/HCPCS: 99214

== ENCOUNTER 2024-10-06 15:25 | Outpatient (AMB) | payer BC, SELFPAY ==
--- NOTE | 2024-10-06 15:27 | A.OFFVIS_ITS ---
Vital Signs 10/06/24 15:28 Height 5 ft 7 in Weight 300 lb BMI 47.0 BP 106/62 Blood Pressure Location Rt brachial Position Sitting Pulse 106 H Pulse Source Pulse Oximeter Pulse Oximetry (%) 95 Oxygen Delivery Method Room Air Intake Visit Reasons: Follow up GUTIERREZ Intake Note: ESTABLISHED PATIENT for mgmt of GUTIERREZ. STEFAN 09/23/2023 CC; C/O RUQ pressure abnormal sensation. Pt comments that this sensation has been constant since just shortly after his last follow up. Pt denies any additional sx or concerns at this time. Pt states that the sensation is absolutely not painful but is concerning to him. 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 Accompanied by: Self / Same As Patient Allergies clindamycin [CLINDAMYCIN] Allergy (Intermediate, Verified 10/06/24 15:34) SWELLING HPI HPI Follow up GUTIERREZ: Details: Assessment & Plan (1) Elevated ferritin: Code(s): R79.89 - Other specified abnormal findings of blood chemistry Category: Medical (2) Morbid obesity: Code(s): E66.01 - Morbid (severe) obesity due to excess calories Category: Medical (3) GUTIERREZ (nonalcoholic steatohepatitis): Comment: Baseline labs 01/15/23 WBC 9.4 Hgb 15.0 Hct 46.2 Plt Count 341 Estimated GFR > 60 Total Bilirubin 0.8 AST 69 H ALT 87 H Alkaline Phosphatase 51 Hepatitis A IgM Ab Nonreactive Hep Bs Antigen Negative Hep Bs Antibody NONREACTIVE Hep B Core Total Ab Nonreactive Hepatitis C Ab (EIA) Nonreactive Anti-Mitochondrial Ab NEGATIVE Anti-Smooth Muscle Ab <20 Hemochromatosis screen was negative ULTRASOUND OF THE ABDOMEN WITH ELASTOGRAPHY 08/25/23 (F0-F1 CURRENT LABS 07/29/23 16:15 Ferritin 365 H Total Bilirubin 0.5 Direct Bilirubin 0.2 GGT 41 AST 34 ALT 68 H Alkaline Phosphatase 55 Ceruloplasmin 39 H HIV 1&2 Ab/P24 Ag 4thGn Nonreactive ULTRASOUND OF THE ABDOMEN WITH ELASTOGRAPHY 08/25/23 (F0-F1) IMPRESSION: * Liver is diffusely hyperechoic. Findings are consistent with steatosis. No evidence of focal liver lesion. * Shear wave liver elastography reveals a median stiffness of 1.65 m/s (reference: normal median stiffness is 1.3 m/s or less). In the absence of other known clinical signs, this rules out compensated advanced chronic liver disease Code(s): K75.81 - Nonalcoholic steatohepatitis (GUTIERREZ) Category: Medical Plan He suffers fatigue, but treats his VANESSA with CPAP. I don't think his fatigue is r/t his liver, as his labs are quite mild. With all of the tests in this nice gentleman with a BMI over 40 likely has GUTIERREZ. He is educated and material for patient education is given. ROV 6 mos. TODAY'S VISIT His weight has increased 20 lbs since 12/2023, he attributes this to seroquel. He has developed a feeling of pressure discomfort over the past year in the RUQ area. The discomfort is always present and does not change during the day. He would not describe it exactly his pain. He can not identify exacerbating or remitting factors, not effected by eating or BM and he is s/p ana. Some lower back pain upon awakening, no other concerns, no CIC or diarrhea. No trauma to the area. So we will get US and repeat labs for GUTIERREZ. ROV 3 mos. [facility], [facility] Medical History Transaminitis DJD (degenerative joint disease) Anxiety Morbid obesity Depression Sleep apnea Surgical History S/P medial meniscus repair of left knee Hx of knee surgery Hx of cholecystectomy History of tonsillectomy Family History Mother Diabetes Arthritis Father No problems noted. Brother No problems noted. Brother No problems noted. Sister No problems noted. Sister No problems noted. Son ADHD Son No problems noted. Daughter No problems noted. Daughter No problems noted. 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 Review of Systems Const Denies fatigue, Denies fever(s), Denies night sweats, Denies poor appetite, R eports weight gain and Denies weight loss ENT Reports Normal hearing present, Denies dental pain, Denies dysphagia, Denies hearing loss, Denies mouth pain, Denies odynophagia, Denies throat swelling, Denies tongue swelling and Reports other (Dentition adequate) Card Reports no additional complaints Resp Reports no additional complaints GI Details: Reports abdominal pain, Denies melena, Denies bloating, Denies hematochezia, Denies constipation, Denies GI cramping, Denies dysphagia, Denies excessive flatus, Denies early satiety, Denies heartburn, Denies diarrhea, Denies nausea, Denies odynophagia, Denies vomiting and Denies hematemesis Skin/Breast Denies pruritus, Denies lesions, Denies rash and Denies jaundice Neuro Reports Normal hearing present and Denies Abnormal speech present Endo Denies fatigue Aller/Immun Denies throat swelling and Denies tongue swelling Physical Exam Vital Signs: Last Vital Signs Pulse 106 H 10/06/24 15:28 BP 106/62 10/06/24 15:28 Pulse Ox 95 10/06/24 15:28 Oxygen Delivery Method Room Air 10/06/24 15:28 BMI result Body Mass Index 47.0 Const General: cooperative, no acute distress, well developed and well groomed Nutritional Appearance: well nourished and obese morbidly obese Orientation/consciousness: oriented to person, oriented to place and oriented to time Limitations: No language barrier HEENT Head: Yes normocephalic and Yes atraumatic Eyes General: appearance normal, both eyes and all related structures Pupils: Equal, round and reactive pupils present Neck Neck: Yes normal visual inspection and Yes no lymphadenopathy Thyroid: Thyroid normal Resp Effort & Inspection: normal respiratory effort and able to speak in complete sentences Auscultation: clear to auscultation bilaterally Cardio Rate: regular rate Rhythm: regular rhythm Heart sounds: Normal, physiologic split S2 sound present Peripheral pulses: radial pulses present and posterior tibial pulses present GI Inspection: No distended, Yes Abdominal panniculus present and Yes obesity Palpation (GI): Soft to palpation, Tenderness to palpation present (GI) in the RUQ, no guarding, not rigid and No hepatosplenomegaly present Percussion: Yes normal to percussion Auscultation: normal bowel sounds Rectal Exam - Male: Yes deferred Skin General skin exam: no rashes or lesions noted, turgor normal, skin not dry, no jaundice, No spider nevi and no striae Rashes: no rashes Nails: normal Neuro General: oriented to person, oriented to place and oriented to time Cranial nerves: Yes Equal, round and reactive pupils present and Yes Normal hearing present Speech: No Abnormal speech present Extrem General: Yes normal to inspection, No clubbing, No cyanosis and No edema Psych Appearance: grossly normal and well kempt Mental Status: mental status grossly normal Speech and movement: Normal speech and movement present Affect: normal affect Attitude: cooperative Thought process: Normal thought process present and not confabulating Thought content: Normal thought content present Insight: Fair insight present (Psych) Judgement: Fair judgement present (Psych) Assessment & Plan Assessment & Plan (1) GUTIERREZ (nonalcoholic steatohepatitis): Comment: Baseline labs 01/15/23 WBC 9.4 Hgb 15.0 Hct 46.2 Plt Count 341 Estimated GFR > 60 Total Bilirubin 0.8 AST 69 H ALT 87 H Alkaline Phosphatase 51 Hepatitis A IgM Ab Nonreactive Hep Bs Antigen Negative Hep Bs Antibody NONREACTIVE Hep B Core Total Ab Nonreactive Hepatitis C Ab (EIA) Nonreactive Anti-Mitochondrial Ab NEGATIVE Anti-Smooth Muscle Ab <20 Hemochromatosis screen was negative ULTRASOUND OF THE ABDOMEN WITH ELASTOGRAPHY 08/25/23 (F0-F1 CURRENT LABS 07/29/23 16:15 Ferritin 365 H Total Bilirubin 0.5 Direct Bilirubin 0.2 GGT 41 AST 34 ALT 68 H Alkaline Phosphatase 55 Ceruloplasmin 39 H HIV 1&2 Ab/P24 Ag 4thGn Nonreactive ULTRASOUND OF THE ABDOMEN WITH ELASTOGRAPHY 08/25/23 (F0-F1) IMPRESSION: * Liver is diffusely hyperechoic. Findings are consistent with steatosis. No evidence of focal liver lesion. * Shear wave liver elastography reveals a median stiffness of 1.65 m/s (reference: normal median stiffness is 1.3 m/s or less). In the absence of other known clinical signs, this rules out compensated advanced chronic liver disease Code(s): K75.81 - Nonalcoholic steatohepatitis (GUTIERREZ) Category: Medical (2) Morbid obesity: Code(s): E66.01 - Morbid (severe) obesity due to excess calories Category: Medical (3) Elevated ferritin: Code(s): R79.89 - Other specified abnormal findings of blood chemistry Category: Medical Plan His weight has increased 20 lbs since 12/2023, he attributes this to seroquel. He has developed a feeling of pressure discomfort over the past year in the RUQ area. The discomfort is always present and does not change during the day. He would not describe it exactly his pain. He can not identify exacerbating or remitting factors, not effected by eating or BM and he is s/p ana. Some lower back pain upon awakening, no other concerns, no CIC or diarrhea. No trauma to the area. So we will get US and repeat labs for GUTIERREZ. ROV 3 mos. Orders: Orders Comprehensive Met. Panel Today K75.81 - Nonalcoholic steatohepatitis (GUTIERREZ) Complete Blood Count Auto Diff Today K75.81 - Nonalcoholic steatohepatitis (NA SH) Alpha Fetoprotein Today K75.81 - Nonalcoholic steatohepatitis (GUTIERREZ) US abdomen complete Today K75.81 - Nonalcoholic steatohepatitis (GUTIERREZ) Ferritin Today K75.81 - Nonalcoholic steatohepatitis (GUTIERREZ) Liver Fibrosis Pnl Today K75.81 - Nonalcoholic steatohepatitis (GUTIERREZ) Coding Level of Care Code Est Pt Level 3 (62237) Diagnoses GUTIERREZ (nonalcoholic steatohepatitis) K75.81 Morbid obesity E66.01 Elevated ferritin R79.89
[2024-10-06 15:28] VITALS: BP 106/62; PULSE 106; O2SAT 95; BMI 47.0
--- OUTSIDE RECORDS SUMMARY | 2024-10-06 16:00 | XMS_ITS | Encounter Summary ---
Author Organization [employer] Address [address] [place] [address] [address] [place] [address] Care Team Providers Care Mortgage Loan Assistant Name Role Phone Latricia Palmer MD Primary Care Provide r Encounter Details Date Type Department Care Team (Late st Contact Info) Description 07/22/2022 Orders Only [facility] [address] [place] [id number] Pauline Meyer LPN Social History Tobacco Use Types Packs/Day Years Used Date Smoking Tobacco: Never Assessed Sex and Gender Information Value Date Recorded Sex Assigned at Male 03/31/2022 10:20 AM EDT Legal Sex Male 10:20 AM EDT Gender Identity Male 03/31/2022 10:20 AM EDT Sexual Orientation Choose not to disclose 2021 10:20 AM EDT documented as of this encounter Plan of Treatment Upcoming Encounters Date Type Department Care Team (Late st Contact Info) Description 12/15/2024 3:30 PM EDT Office Visit [facility] [address] [place] [phone] Latricia Palmer MD [address] [place] [phone] documented as of this encounter Visit Diagnoses Not on filedocumented in this encounter Care Teams Mortgage Loan Assistant Relationship Specialty Start Date End Date Latricia Palmer MD [address] [place] [id number] PCP - General Family Medicine 03/12/18 documented as of this encounter
--- OUTSIDE RECORDS SUMMARY | 2024-10-06 16:00 | XMS_ITS | Encounter Summary ---
Author Organization [employer] Address [address] [place] [address] [address] [place] [address] Care Team Providers Care Director Prison Name Role Phone Latricia Palmer MD Primary Care Provide r Reason for Visit * Reason Comments Med Refill Encounter Details Date Type Department Care Team (Late st Contact Info) Description 01/11/2024 Refill [facility] [address], [place] [phone] Hoang Avalos FNP Social History Tobacco Use Types Packs/Day Years Used Date Smoking Tobacco: Never Smokeless Tobacco: Never Alcohol Use Standard Drinks/Week Comments Yes 0 (1 standard drink = 0.6 oz pur e alcohol) Depression Answer Date Recorded Patient Health Questionnaire-9 Score 15 12/10/2023 Patient Health Questionnaire-9 Score 15 12/10/2023 Last PHQ-9: Questionnaire Data Not on file 0 12/10/2023 Depression Answer Date Recorded Patient Health Questionnaire-2 Score 5 12/10/2023 Sex and Gender Information Value Date Recorded [...] Description 12/15/2024 3:30 PM EDT Office Visit [facility] [address], [place] [phone] Latricia Palmer MD [address] [place] [phone] documented as of this encounter Visit Diagnoses Not on filedocumented in this encounter Additional Health Concerns Assessment Noted Time PHQ-9 Depression Total Score: 15 024 3:08 PM EDT documented as of this encounter Care Teams Director Prison Relationship Specialty Start Date End Date Latricia Palmer MD [address] [place] [phone] PCP - General Family Medicine 03/12/18 documented as of this encounter
--- OUTSIDE RECORDS SUMMARY | 2024-10-06 16:01 | XMS_ITS | Encounter Summary ---
Author Organization [facility] Address [address] [place] [phone] Phone Care Team Providers Care Rug Hooker Hand Name Role Phone Bandar Triana MD Primary Care Provider [phone] Encounter Details Date Type Department Care Team (Late st Contact Info) Description 04/02/2017 Conversion Encounter [facility] [place] [address] [place] [address] Social History Tobacco Use Types Packs/Day Years Used Date Smoking Tobacco: Never Assessed Sex and Gender Information Value Date Recorded Sex Assigned at Not on file Legal Sex Male 4:10 PM EDT Gender Identity Not on file Sexual Orientation Not on file documented as of this encounter Plan of Treatment Not on file documented as of this encounter Visit Diagnoses Not on filedocumented in this encounter Care Teams Rug Hooker Hand Relationship Specialty Start Date End Date Bandar Triana MD [address] [place] [address] PCP - General 01/09/17 11/05/22 documented as of this encounter
--- OUTSIDE RECORDS SUMMARY | 2024-10-06 16:01 | XMS_ITS | Clinical Summary ---
Author Organization [facility] Address [address] [place] [address] Care Team Providers Care Shredder Picker Name Role Phone Latricia Palmer MD Primary Care Provide r Allergies Active Allergy Reactions Criticality Noted Date Comments Clindamycin Itching,Rash Low 09/13/2020 Other reaction(s): Hives Medications * This document contains information received from the source organization and may not represent a complete record from that organization. buPROPion SR (Wellbutrin SR) 200 MG 12 hr tabletIndicati ons:Moderate major depression, single episode (CMS/HCC) Take 1 tablet (200 mg) by mouth in the morning. Do not crush, chew, or split. 30 tablet 1 09/08/19 25 025 Active QUEtiapine (SEROquel) 50 MG tabletIndicati ons:Mood disorder (CMS/HCC) Take 3 tablets (150 mg) by mouth at bedtime. 90 tablet 1 09/08/19 25 025 Active hydrOXYzine HCl (Atarax) 25 MG tabletIndicati ons:Mood disorder (CMS/HCC) Take 2 tablets (50 mg) by mouth if needed at bedtime for anxiety. 30 tablet 09/08/19 25 025 Active hydrOXYzine HCl (Atarax) 25 MG tabletIndicati ons:Mood disorder (CMS/HCC) Take 2 tablets (50 mg) by mouth if needed at bedtime for anxiety. 30 tablet 08/11/19 25 025 Discontinued(Re order (will not trigger notification to Pharmacy)) buPROPion SR (Wellbutrin SR) 200 MG 12 hr tabletIndicati ons:Moderate major depression, single episode (CMS/HCC) Take 1 tablet (200 mg) by mouth in the morning. Do not crush, chew, or split. 30 tablet 1 08/11/19 25 025 Discontinued(Re order (will not trigger notification to Pharmacy)) QUEtiapine (SEROquel) 50 MG tabletIndicati ons:Mood disorder (CMS/HCC) Take 2 tablets (100 mg) by mouth at bedtime. 60 tablet 08/25/19 25 025 Discontinued(Re order (will not trigger notification to Pharmacy)) Active Problems Problem Noted Date Diagnosed Date Diminished vision 06/17/2024 Encounter for preventive care 06/17/2024 Assessment & Plan (06/17/2024 4:41 PM EST): See HPI Elevated blood pressure reading 06/17/2024 Assessment & Plan (06/17/2024 4:43 PM EST): I advise low Na diet and weight reduction Restless leg syndrome 10/27/2023 Assessment & Plan (12/09/2023 4:23 PM EDT): Declines medications Assessment & Plan (10/27/2023 4:31 PM EDT): CBC and iron lencho to be check If normal I will consider starting him on ropinirole Health care maintenance 10/27/2023 VANESSA (obstructive sleep apnea) 10/24/2022 Assessment & Plan (06/17/2024 4:40 PM EST): Continue using CPAP machine Assessment & Plan (10/27/2023 4:30 PM EDT): Fu with sleep medicine Assessment & Plan (10/24/2022 11:11 AM EDT): Sleep studies where done before positive VANESSA I will refer him directly to sleep medicine for further discussion of options Dyspnea on exertion 10/24/2022 Assessment & Plan (10/24/2022 11:14 AM EDT): Possible deconditioning? Asthma? Cardiac etiology? Mood disorder? Other? 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 Consistent with BPD, with history of episodes of excessive spending, starting unrealistic projects, irritability, however unclear if duration of symptoms fully meets criteria for dx of BPD. Also supported by inefficacy of multiple antidepressants including worsening symptoms of irritability and moodiness. However has tolerated Bupropion without destabilized mood. Abilify 15 mg had been helpful as a mood stabilizer, but caused akathisia. Risperidone 0.5 mg at bedtime was too sedating and caused overeating. Doing well with Geodon 80 mg BID (although sometimes forgets second dose). Experiencing sleep onset as well as maintenance insomnia. Previously used CPAP correctly without improvement. Will try Clonidine 0.1 mg at bedtime. Continue Bupropion SR 200 mg in the morning only. Continue hydroxyzine 25 mg as needed for anxiety/panic attacks prn. No counseling currently, has been referred. Since this provider will be retiring, patient will be referred to new [facility] Psychiatric provider. Pt understands that appts will be via televisit, and the provider will not be an employee of [facility]. He gives permission to share PHI. Any issues or concerns, contact the health center. All his questions were answered and I have wished him well. He agrees with the plan. Assessment & Plan (10/22/2023 4:51 PM EDT): Has been characterized by prominent depression, including passive SI. Consistent with BPD, with history of episodes of excessive spending, starting unrealistic projects, irritability, however unclear if duration of symptoms fully meets criteria for dx of BPD. Also supported by inefficacy of multiple antidepressants including worsening symptoms of irritability and moodiness. Abilify 15 mg had been helpful as a mood stabilizer, but caused akathisia. Risperidone 0.5 mg at bedtime was too sedating and caused overeating. Mood is more stable and he will continue Geodon 80 mg BID. Experiencing sleep onset insomnia, which he suspects is r/t medication. This may well be r/t the Bupropion XL 300 mg, even though he takes it first thing in the morning. At this time he will stop the Bupropion XL 300 mg daily. Will start Bupropion SR 200 mg in the morning only. Also suggest he try taking hydroxyzine 25 mg at bedtime for sleep and may also take as needed for anxiety/panic attacks prn. No counseling currently, has been referred. This provider will be retiring soon but we will have one final appointment in approx 6 weeks, and then transfer his care to new [facility] psychiatric provider. He agrees with the plan. Assessment & Plan (08/31/2023 3:35 PM EDT): Has been characterized by prominent depression, including passive SI. Consistent with BPD, with history of episodes of excessive spending, starting unrealistic projects, irritability, however unclear if duration of symptoms fully meets criteria for dx of BPD. Also supported by inefficacy of multiple antidepressants including worsening symptoms of irritability and moodiness. Abilify 15 mg had been helpful as a mood stabilizer, but caused akathisia. Risperidone 0.5 mg at bedtime was too sedating and caused overeating. He had been gradually improving with uptitration of Geodon and was supposed to increaseto Geodon 80 mg BID, however pharmacy erred and dispensed Geodon 20 mg instead. Will now transfer all prescriptions to [facility] Pharmacy for home delivery. Tolerating Wellbutrin XL 300 mg daily in the morning, and will continue. May also continue hydroxyzine 25 mg at bedtime for sleep as desired, and may also take as needed for anxiety/panic attacks prn. No counseling currently, will be referred again. On 05/11/2023 provider informed pt that I would be retiring, but we would make every effort to ensure smooth transition of care. F/U with me in 6-8 weeks. He agrees with the plan. Assessment & Plan (07/06/2023 4:30 PM EST): Has been characterized by prominent depression, including passive SI. Consistent with BPD, with history of episodes of excessive spending, starting unrealistic projects, irritability, however unclear if duration of symptoms fully meets criteria for dx of BPD. Also supported by inefficacy of multiple antidepressants including worsening symptoms of irritability and moodiness. Abilify 15 mg had been helpful as a mood stabilizer, but caused akathisia. Risperidone 0.5 mg at bedtime was too sedating and caused overeating. He is gradually improving with uptitration of Geodon and will now increase again to Geodon 80 mg BID. Tolerating Wellbutrin XL 300 mg daily in the morning, and will continue. May also continue hydroxyzine 25 mg at bedtime for sleep as desired, and may also take as needed for anxiety/panic attacks prn. No counseling currently, will be referred again. On 05/11/2023 provider informed pt that I would be retiring, but we would make every effort to ensure smooth transition of care. F/U with me in 6-8 weeks. He agrees with the plan. ?? Assessment & Plan (05/11/2023 4:00 PM EST): Has been characterized by prominent depression, including passive SI. Consistent with BPD, with history of episodes of excessive spending, starting unrealistic projects, irritability, however unclear if duration of symptoms fully meets criteria for dx of BPD. Also supported by inefficacy of multiple antidepressants including worsening symptoms of irritability and moodiness. Abilify 15 mg had been helpful as a mood stabilizer, but caused akathisia. Risperidone 0.5 mg at bedtime was too sedating and caused overeating. He has had significant improvement with Geodon 40 mg BID, but mood swings not fully controlled. Will increase now to Geodon 60 mg BID. Tolerating Wellbutrin XL 300 mg daily in the morning, and will continue. May also continue hydroxyzine 25 mg at bedtime for sleep as desired, and may also take as needed for anxiety/panic attacks prn. Urged to F/U for counseling, or request new referrl if needed. Today 05/11/2023 provider informed pt that I would be retiring in approx 1/2 year, but we would make every effort to ensure smooth transition of care. F/U with me in 2 months. He agrees with the plan. ?? Assessment & Plan (03/10/2023 3:14 PM EDT): Has been characterized by prominent depression, including passive SI. Consistent with BPD, with history of episodes of excessive spending, starting unrealistic projects, irritability. Also supported by inefficacy of multiple antidepressants including worsening symptoms of irritability and moodiness. Abilify 15 mg had been helpful as a mood stabilizer, but caused akathisia. Risperidone 0.5 mg at bedtime was too sedating and caused overeating. He had good early response to starting dose of Geodon 20 mg BID, and again brief improvement with dose increase to Geodon 40 mg BID. Persistent anhedonia without episodes of hypomania or irritability. Says he has noticed that he has a hard time when there is too much going on around me, too much noise. This has not been a life-long issue, and he did not have attention problems as a child. Therefore unlikely to be ASD or ADD. No substances. Has had some improved mood with Wellbutrin XL 150 mg daily in the morning, will now increase to Wellbutrin XL 300 mg in the morning. Continue , Geodon 40 mg BID, hydroxyzine 25 mg at bedtime for sleep as desired, and may also take as needed for anxiety/panic attacks prn. Do F/U for sleep study and with new therapist. F/U with me in 2 months. He agrees with the plan. ?? Assessment & Plan (01/12/2023 3:37 PM EDT): Has been characterized by prominent depression, including passive SI. Consistent with BPD, with history of episodes of excessive spending, starting unrealistic projects, irritability. Also supported by inefficacy of multiple antidepressants including worsening symptoms of irritability and moodiness. Abilify 15 mg had been helpful as a mood stabilizer, but caused akathisia. Risperidone 0.5 mg at bedtime was too sedating and caused overeating. He had good early response to starting dose of Geodon 20 mg BID, and again brief improvement with dose increase to Geodon 40 mg BID. Persistent anhedonia without episodes of hypomania or irritability. Says he has noticed that he has a hard time when there is too much going on around me, too much noise. This has not been a life-long issue, and he did not have attention problems as a child. Therefore unlikely to be ASD or ADD. No substances. Will add Wellbutrin XL 150 mg daily in the morning. Continue , Geodon 40 mg BID, hydroxyzine 25 mg at bedtime for sleep as desired, and may also take as needed for anxiety/panic attacks prn. F/U with me in 6-8 weeks. He agrees with the plan. Assessment & Plan (10/28/2022 3:52 PM EDT): Has been characterized by prominent depression, including passive SI. Consistent with BPD, with history of episodes of excessive spending, starting unrealistic projects, irritability. Also supported by inefficacy of multiple antidepressants including worsening symptoms of irritability and moodiness. Abilify 15 mg had been helpful as a mood stabilizer, but caused akathisia. Risperidone 0.5 mg at bedtime was too sedating and caused overeating. He had good early response to starting dose of Geodon 20 mg BID, but that seems to have waned. At this time will increase to Geodon 40 mg BID. Please let me know if the appetite increase becomes a problem. May continue hydroxyzine 25 mg at bedtime for sleep as desired, and may also take as needed for anxiety/panic attacks prn. F/U with me in 2 months. He agrees with the plan. Assessment & Plan (09/09/2022 3:59 PM EDT): Has been characterized by prominent depression, including passive SI. Consistent with BPD, with history of episodes of excessive spending, starting unrealistic projects, irritability. Also supported by inefficacy of multiple antidepressants including worsening symptoms of irritability and moodiness. Abilify 15 mg had been helpful as a mood stabilizer, but caused akathisia. Risperidone 0.5 mg at bedtime was too sedating and caused overeating. He will instead have Geodon 20 mg BID with food. May continue hydroxyzine 25 mg at bedtime for sleep as desired, and may also take as needed for anxiety/panic attacks prn. F/U with me in 6 weeks. He agrees with the plan. Assessment & Plan (08/04/2022 4:26 PM EST): Has been characterized by prominent depression, including passive SI. Consistent with BPD, with history of episodes of excessive spending, starting unrealistic projects, irritability. Also supported by inefficacy of multiple antidepressants including worsening symptoms of irritability and moodiness. The Abilify 15 mg has been quite helpful as a mood stabilizer, but seems to be causing restlessness (akathisia?), and fogginess. He has not previously had other atypical antipsychotic trials. Will switch to Risperidone 0.5 mg at bedtime, which hopefully he will not find too sedating or cause weight gain. If this is not tolerated, will consider a next generation atypical e.g., Latuda. May continue hydroxyzine 25 mg at bedtime for sleep as desired, and may also take as needed for anxiety/panic attacks prn. F/U with me in 1 month. He agrees with the plan. Generalized anxiety disorder 04/30/2022 Insomnia 03/12/2018 Assessment & Plan (10/27/2023 4:30 PM EDT): Sleep hygiene counseling Patient has upcoming appointment with sleep medicine, he will mention his issues with his CPAP machine ( he takes it off while he is sleeping) to see if he can explore other options Patient will f/u with [facility] again in 6 weeks TSH will be check with labs Depressive disorder 03/12/2018 Encounters * This document contains information received from the source organization and may not represent a complete record from that organization. Date Type Department Care Team Description 08/31/[address] [facility] [address] [place] [phone] Latricia Palmer MD Nurse Triage from Last 3 Months Immunizations Name Administration Dates Next Due Influenza injectable quadrivalent preservative f ree 05/07/2021 Social History Tobacco Use Types Packs/Day Years Used Date Smoking Tobacco: Never Smokeless Tobacco: Never Tobacco Cessation:Counseling Given: Not Answered Alcohol Use Standard Drinks/Week Comments Yes 0 (1 standard drink = 0.6 oz pur e alcohol) Depression Answer Date Recorded Patient Health Questionnaire-9 Score 7 06/17/2024 Patient Health Questionnaire-9 Score 7 06/17/2024 Last PHQ-9: Questionnaire Data Not on file 0 06/17/2024 Housing Stability Answer Date Recorded What is your housing situation today? I have lima lewis 06/17/[address] you li ve. Do you have problems with any of the following? None of the above 06/17/2024 Food Insecurity Answer Date Recorded Within the past 12 months, y ou worried that your food would run out before you got money to buy more: Never True 06/17/2024 Within the past 12 months,th e food you bought just didn't last and you didn't have enough money to get more: Never True Transportation Answer Date Recorded In the past 12 months, has l ack of transportation kept you from medical appts, meetings, work or from getting things needed for daily living? No 06/17/2024 Utilities Answer Date Recorded In the past 12 months, has t he electric, gas, oil or water company threatened to shut off services in your home? No 06/17/2024 Depression Answer Date Recorded Patient Health Questionnaire-2 Score 2 06/17/2024 Internet Access Answer Date Recorded Internet Access Q1 No 06/17/2024 Internet Access Q2 Not on file 06/17/2024 Sex and Gender Information Value Date Recorded Sex Assigned at Male 03/31/2022 10:20 AM EDT Legal Sex Male 10:20 AM EDT Gender Identity Male 03/31/2022 10:20 AM EDT Sexual Orientation Choose not to disclose 2021 10:20 AM EDT Last Filed Vital Signs Vital Sign Reading Time Taken Comments Blood Pressure 156/82 06/17/2024 3:08 PM EST Pulse 99 06/17/2024 3:08 PM EST Temperature 36.6 ??C (97.9 ??F) 06/17/2024 3:08 PM ES T Respiratory Rate 18 06/17/2024 3:08 PM EST Oxygen Saturation 97% 10/27/2023 3:43 PM EDT Inhaled Oxygen Concentration - - Weight 135 kg (297 lb 8 oz) 06/17/2024 3:[address] Height 170.2 cm (5' 7 ) 06/17/2024 3:08 PM EST Body Mass Index 46.6 06/17/2024 3:08 PM EST Plan of Treatment Upcoming Encounters Date Type Department Care Team (Late st Contact Info) Description 12/15/2024 3:30 PM EDT Office Visit [facility] [address] [place] [address] Latricia Palmer MD [address] [place] [address] Health Maintenance Due Date Last Done Comments DTaP/Tdap/Td Vaccines (6 - Tdap) 1998 07/02/1996, 01/16/1992, 10/19/1989, Additional history exists Alcohol/Substance Use Screening 1999 Family Planning (PISQ) 2002 COVID-19 Vaccine ( season) 2024 11/19/2020 Influenza Vaccine (#1) 2024 05/07/2021 Depression Screening 06/17/2025 06/17/2024, 06/17/19 SDOH Screening 06/17/2025 06/17/2024 Tobacco Screening 09/07/2025 09/07/2024 Lipid Panel 11/03/2028 11/04/2023, 05/14/2022 Zoster Vaccines (1 of 2) 2037 RSV Patients and Patients Aged 60 years or older (1 - 1-dose 75+ series) 2062 IPV Vaccines Completed 01/16/1992, 09/30, 04/01/1989, Additional history exists Hepatitis B Vaccines Completed 06/25/1999, 11/28/1998, 10/23/1998 Hepatitis C Screening Completed 01/15/2023 HIV Screening Completed 07/29/2023 HIB Vaccines Aged Out No longer eligi ble based on patient's age to complete this topic HPV Vaccines Aged Out No longer eligi ble based on patient's age to complete this topic Hepatitis A Vaccines Aged Out No long er eligible based on patient's age to complete this topic Meningococcal Vaccine Aged Out No gracia jorgito eligible based on patient's age to complete this topic Pneumococcal Vaccine: Pediatrics (0 to 5 Years) and At-Risk Patients (6 to 49) Years) Aged Out No longer eligible based on patient's age to complete this topic RSV under 20 months Aged Out No longe r eligible based on patient's age to complete this topic Rotavirus Vaccines Aged Out No longer eligible based on patient's age to complete this topic Procedures Procedure Name Priority Date/Time Associated Diagnosis Comments LIPID PANEL, STANDARD Routine 11/04/2023 12:05 PM EDT Health care maintenance HIV 1/2 ANTIGEN/ANTIBODY, FOURTH GENERATION W/RFL Routine 07/29/2023 4:15 PM EST HEPATITIS PANEL, GENERAL Routine 01/15/2023 12:26 PM EDT from Last 3 Months or Most Recently Relevant to Health Maintenance Results * (ABNORMAL) Lipid Panel, Standard (11/04/2023 12:05 PM EDT) Triglycerides 87 <150 mg/dL [facility] Comment:Desirable Triglyceri de: less than 150 mg/dLBorderline High Triglyceride 150-199 mg/dLHigh Triglyceride: 200-499 mg/dLVery High Triglyceride: greater than or equal to 5OO mg/dL Cholesterol 149 <200 mg/dL [facility] Comment:Desirable Cholestero l: less than 200 mg/dLBorderline High Cholesterol: 200-239 mg/dLHigh Cholesterol: greater than 239 mg/dL LDL Cholesterol Calculated 96 <100 mg/dL [facility] Comment:Desirable LDL: less than 100 mg/dLNear Optimal/Above Optimal LDL: 110- 129 mg/dLBorderline High LDL: 130-159 mg/dLHigh LDL: 160-189 mg/dLVery High LDL: greater than or equal to 190 mg/dL HDL Cholesterol 36(L) >40 mg/dL [facility] Comment:Desirable HDL: great er than 40 mg/dL Note: This HDL assay may give artificially low results in patients with liver disease. Blood Venous blood specimen / Unknown 11/04/2023 12:05 PM EDT 11/04/2023 1:59 PM EDT us Latricia Melara MD LAB BLOOD ORDERABLES Final Result [facility] [address] [place] [address] [phone] * HIV-1/2 Antigen and Antibodies, Fourth Generation, with Reflexes (07/29/2023 4:15 PM EST) Pathologist [facility] HIV AB/AG Nonreactive Nonreactive [facility] Comment:HIV-1 p24 Ag and/or HIV-1/HIV-2 Ab not detected.A test result that is nonreactive does not exclude thepossibility of exposure to or infection with HIV-1 and/orHIV-2. Nonreactive results in this assay for individualswith prior exposure to HIV-1 and/or HIV-2 may be due toantigen and antibody levels that are below the limit ofdetection of this assay.The [employer] HIV Ag/Ab Combo assay result andsupplemental assay results should be interpreted inconjunction with the patient's clinical presentation,history and other laboratory results. If the results areinconsistent with clinical evidence, additional testing issuggested to confirm the result. 07/29/2023 4:15 PM EST 07/29/2023 4:16 PM EST us Generic External Data Provider LAB BLOOD ORDERAB LES Final Result [facility] [address] [place] [address] [phone] * Hepatitis Panel, General (01/15/2023 12:26 PM EDT) Pathologist [facility] Hepatitis A IgM Nonreactive Nonreactive [facility] Comment:IgM antibodies to MATA V not detected; does not exclude earlyacute or recovered HAV infection. ~Hepatitis B Surface Antibody NONREACTIVE Nonreactive [facility] Comment:Nonreactive: < 8.00 mIU/mL Hepatitis B Core Antibody Nonreactive Nonreactive [facility] Hepatitis C Antibody Nonreactive Nonreactive [facility] Comment:Antibodies to HCV no t detected; does not exclude early acuteHCV infection. Hepatitis B Surface Ag Negative Negative [facility] 01/15/2023 12:2 6 PM EDT 01/15/2023 12:36 PM EDT us [facility] External Provider LAB BLO OD ORDERABLES Final Result [facility] [address] [place] [phone] [phone] from Last 3 Months or Most Recently Relevant to Health Maintenance Insurance * Guarantor: Cristofer Ramsey Account Type Relation to Patient Date of Phone Billing Address Personal/Family Self [address] [place] [address] [employer] P[employer] * Guarantor: Cristofer Ramsey Account Type Relation to Patient Date of Phone Billing Address Personal/Family Self [address] [place] [address] * Guarantor: Cristofer Ramsey Account Type Relation to Patient Date of Phone Billing Address Personal/Family Self [address] [place] [address] * Guarantor: Cristofer Ramsey Account Type Relation to Patient Date of Phone Billing Address Personal/Family Self [address] [place] [address] Care Teams Shredder Picker Relationship Specialty Start Date End Date Latricia Palmer MD [address] [place] [phone] PCP - General Family Medicine 03/12/18
--- OUTSIDE RECORDS SUMMARY | 2024-10-06 16:01 | XMS_ITS | Encounter Summary ---
Author Organization [employer] Address [address] [place] [address] [address] [place] [address] Care Team Providers Care Wash Worker Name Role Phone Latricia Palmer MD Primary Care Provide r Reason for Visit * Reason Comments Med Refill Encounter Details Date Type Department Care Team (Late st Contact Info) Description 09/30/2023 Refill [facility] [address] [place], [place] [phone] Hoang Avalos FNP Social History Tobacco Use Types Packs/Day Years Used Date Smoking Tobacco: Never Smokeless Tobacco: Never Alcohol Use Standard Drinks/Week Comments Yes 0 (1 standard drink = 0.6 oz pur e alcohol) Depression Answer Date Recorded Patient Health Questionnaire-9 Score 7 08/31/2023 Patient Health Questionnaire-9 Score 7 08/31/2023 Last PHQ-9: Questionnaire Data Not on file 0 08/31/2023 Depression Answer Date Recorded Patient Health Questionnaire-2 Score 2 08/31/2023 Sex and Gender Information Value Date Recorded [...] Description 12/15/2024 3:30 PM EDT Office Visit [facility] [address] [place], [place] [phone] Latricia Palmer MD [address] [place] [address] documented as of this encounter Visit Diagnoses Not on filedocumented in this encounter Additional Health Concerns Assessment Noted Time PHQ-9 Depression Total Score: 7 08/31/19 24 2:48 PM EDT documented as of this encounter Care Teams Wash Worker Relationship Specialty Start Date End Date Latricia Palmer MD [address] [place] [address] PCP - General Family Medicine 03/12/18 documented as of this encounter
--- OUTSIDE RECORDS SUMMARY | 2024-10-06 16:01 | XMS_ITS | Clinical Summary ---
Author Organization [facility] Address [address] [place] [phone] Phone Care Team Providers Care Freezer Machine Operator Name Role Phone Unavailable Primary Care Provider Unavailabl e Immunizations Immunization Administration Dates Next Due DT 07/05/1996 DTP 01/16/1992, 0,04/01/1989,1987,1987 Hep B, ped/adol 06/25/1999,11/28/1998,10/23/1998 MMR 10/23/1998,10/19/1989 OPV 01/16/1992, 0,04/01/1989,1987,1987 Td (adult) (Teniva), 5 Lf t etanus toxoid, PF, adsorbed 07/02/1996 Social History Tobacco Use Types Packs/Day Years Used Date Smoking Tobacco: Never Assessed Sex and Gender Information Value Date Recorded Sex Assigned at Not on file Legal Sex Male 4:10 PM EDT Gender Identity Not on file Sexual Orientation Not on file Plan of Treatment Health Maintenance Due Date Last Done Comments DTaP,Tdap,and Td Vaccines (6 - Tdap) 1998 07/05/1996, 07/02/1996, 01/16/1992, Additional history exists Varicella Vaccines (1 of 2 - 13+ 2-dose series) 2000 Influenza Vaccines (#1) 2023 COVID-19 Vaccine (2023- season) 2024 IPV Vaccines Completed 01/16/1992, 09/30, 04/01/1989, Additional history exists MMR Vaccines Completed 10/23/1998, 10/19/1989 Hepatitis B Vaccines Completed 06/25/1999, 11/28/1998, 10/23/1998 HIB Vaccines Aged Out No longer eligi ble based on patient's age to complete this topic HPV Vaccines Aged Out No longer eligi ble based on patient's age to complete this topic Hepatitis A Vaccines Aged Out No long er eligible based on patient's age to complete this topic Men B Vaccine Aged Out No longer elig ible based on patient's age to complete this topic Meningococcal Vaccine Aged Out No gracia jorgito eligible based on patient's age to complete this topic Pneumococcal Vaccine Aged Out No long er eligible based on patient's age to complete this topic
== END 2024-10-06 16:08 | disposition home or self-care (01) ==
LOC: HO.HGI 15:25
PROVIDERS: PCP Internal Medicine; Visit Provider Nurse Practitioner
DX: K75.81 Nonalcoholic steatohepatitis (NASH) (principal); E66.01 Morbid (severe) obesity due to excess calories; R79.89 Other specified abnormal findings of blood chemistry
CPT/HCPCS: 99213

== ENCOUNTER 2024-10-06 15:25 | Outpatient (REF) | payer BC, SELFPAY ==
[2024-10-06 16:43] LABS: MANUAL DIFF FLAG NO
[2024-10-06 17:17] LABS: Basophils Percent Auto 0.3 % (0-2); Eosinophils Absolute Auto 0.1 X10*3/uL (0.0-0.4); Eosinophils Percent Auto 0.6 % (0-4); Hematocrit 43.9 % (42.0-52.0); Hemoglobin 14.2 g/dl (14.0-18.0); Imm Gran Abs Auto 0.04 X10*3/uL (0.00-0.03); Imm Gran Pct Auto 0.4 % (0.0-0.4); Lymphocytes Absolute Auto 2.2 X10*3/uL (1.2-4.9); Lymphocytes Percent Auto 22.1 % (20-40); Mean Corpuscular HGB Conc 32.3 g/dl (31.0-36.0); Mean Corpuscular Hemoglobin 24.9 pg (27.0-33.0); Mean Corpuscular Volume 76.9 fL (80.0-98.0); Mean Platelet Volume 9.7 fL (9.4-12.4); Monocytes Absolute Auto 0.7 X10*3/uL (0.1-1.2); Monocytes Percent Auto 7.4 % (2-11); Neutrophils Absolute Auto 6.8 x10*3/uL (2.0-8.3); Neutrophils Percent Auto 69.2 % (45-73); Platelet Count 358 X10*3/uL (160-400); Red Blood Count 5.71 X10*6/uL (4.60-5.80); Red Cell Distribution Width 14.6 % (11.0-16.0); White Blood Count 9.8 X10*3/uL (4.8-10.8)
[2024-10-06 17:56] LABS: Alanine Aminotransferase 113 U/L (0-40); Albumin Level 4.5 g/dL (3.5-5.0); Alkaline Phosphatase 60 U/L (39-117); Anion Gap 14 (12-20); Aspartate Amino Transferase 63 U/L (5-37); Bilirubin Total 0.4 mg/dL (0.0-1.0); Blood Urea Nitrogen 12 mg/dL (9-16); Calcium 9.6 mg/dL (8.4-10.2); Carbon Dioxide 25 mmol/L (22-29); Chloride 105 mmol/L (96-108); Estimated Glomerular Filt Rate > 60; Glucose Random 100 mg/dL (60-115); Sodium 140 mmol/L (135-145); Total Protein 7.2 g/dL (6.5-8.0)
[2024-10-06 18:11] LABS: Ferritin 186 ng/mL (20-250)
[2024-10-07 12:38] LABS: Alpha Fetoprotein 1.8 ng/mL (<6.1)
[2024-10-13 19:33] LABS: FIB-ALT 87 U/L (9-46); FIB-Alpha-2-Macroglobulin 231 mg/dL (106-279); FIB-Apolipoprotein A1 129 mg/dL (94-176); FIB-GGT 48 U/L (3-90); FIB-Haptoglobin 273 mg/dL (43-212); FIB-Total Bilirubin 0.4 mg/dL (0.2-1.2); Liver Fibrosis Score 0.18; Liver Fibrosis Stage F0; Nec Inflam Act Grade A1-A2; Nec Inflam Act Score 0.46; Reference ID 5486490
== END 2024-10-06 15:26 | disposition home or self-care (01) ==
LOC: HO.LAB 15:25
PROVIDERS: PCP Internal Medicine; Visit Provider Nurse Practitioner
DX: K75.81 Nonalcoholic steatohepatitis (NASH) (principal); Z13.6 Encounter for screening for cardiovascular disorders
CPT/HCPCS: 36415; 80053; 81596; 82105; 82728; 85025

== ENCOUNTER 2024-12-05 10:14 | Outpatient (REF) | payer BC, SELFPAY ==
--- NOTE | ~2024-12-05 | US_ITS ---
CLINICAL HISTORY: K75.81 - Nonalcoholic steatohepatitis (GUTIERREZ) US abdomen complete Comparison: None Findings: The visualized pancreas head is normal. Remaining pancreas is obscured by bowel gas. The visualized aorta and inferior vena cava are normal caliber, atherosclerotic changes of mid to distal aorta, proximal aorta is not seen. The liver is enlarged, right lobe length is 20.6 cm. Markedly increased echogenicity of the liver parenchyma, the posterior and superior aspect of the liver are not well visualized, diaphragm is mostly obscured. No large focal lesion is seen. No intrahepatic bile duct dilatation. The common duct is not visualized. Status post cholecystectomy. The main portal vein is patent with antegrade flow. The right kidney upper and lower poles are mostly obscured by shadowing, grossly normal, 10.7 cm in length. The left kidney upper pole is obscured by bowel gas, otherwise normal, 12.1 cm in length. The spleen is mostly obscured by rib and gas shadows, not enlarged, 10.9 cm in length. No free fluid in the abdomen. Impression: Hepatomegaly with severe steatosis. This document has been electronically signed by: Avril Claros MD on 12/05/2024 15:28:17
--- OUTSIDE RECORDS SUMMARY | 2024-12-05 11:00 | XMS_ITS | Encounter Summary ---
Author Organization [facility] Address [address] [place] [phone] Phone Care Team Providers Care Bit Gatherer Name Role Phone Bandar Triana MD Primary Care Provider [phone] Encounter Details Date Type Department Care Team (Late st Contact Info) Description 04/02/2017 Conversion Encounter [facility] [address] [place] [address] Social History Tobacco Use Types Packs/Day Years [...] on filedocumented in this encounter Care Teams Bit Gatherer Relationship Specialty Start Date End Date Bandar Triana MD [address] [place] [address] PCP - General 01/09/17 11/05/22 documented as of this encounter
--- OUTSIDE RECORDS SUMMARY | 2024-12-05 11:00 | XMS_ITS | Encounter Summary ---
Author Organization [employer] Address [address] [place] [address] [address] [place] [address] Care Team Providers Care Visual Merchandising Associate Name Role Phone Latricia Palmer MD Primary Care Provide r Encounter Details Date Type Department Care Team (Late st Contact Info) Description 07/22/2022 Orders Only [facility] [address] [place] [phone] Pauline Meyer LPN Social History Tobacco Use [...] Description 12/15/2024 3:30 PM EDT Office Visit [facility] [address] [place] [phone] Latricia Palmer MD [address] [place] [phone] documented as of this encounter Visit Diagnoses Not on filedocumented in this encounter Care Teams Visual Merchandising Associate Relationship Specialty Start Date End Date Latricia Palmer MD [address] [place] [phone] PCP - General Family Medicine 10/12/18 documented as of this encounter
== END 2024-12-05 10:15 | disposition home or self-care (01) ==
LOC: HO.US 10:14
PROVIDERS: PCP Internal Medicine; Visit Provider Nurse Practitioner
DX: K75.81 Nonalcoholic steatohepatitis (NASH) (principal)
CPT/HCPCS: 76700

== ENCOUNTER → 2024-12-05 10:15 | Outpatient (BNV) | payer BC, SELFPAY | PROVIDERS: PCP Internal Medicine; Visit Provider Radiology Diagnostic Radiology | DX: K75.81 Nonalcoholic steatohepatitis (NASH) (principal) | CPT/HCPCS: 76700 ==

== ENCOUNTER 2025-02-02 16:16 | Outpatient (AMB) | payer BC, SELFPAY ==
--- NOTE | 2025-02-02 16:18 | MHC.OFFVIS ---
Vital Signs 02/02/25 16:21 Height 5 ft 7 in Weight 297 lb 9.985 oz BMI 46.6 BP 119/70 Blood Pressure Location Lt brachial Position Sitting Pulse 100 Intake Visit Reasons: GUTIERREZ Intake Note: Cristofer returns today in follow up of labs and US. CC: She continues having right sided pressure and discomfort. Denies other new GI symptoms. Human Resources Coordinator Required: No Accompanied by: Self / Same As Patient Allergies clindamycin (CLINDAMYCIN) Allergy (Intermediate, Verified 02/02/25 16:22) SWELLING HPI HPI GUTIERREZ: Details: Assessment & Plan (1) GUTIERREZ (nonalcoholic steatohepatitis): Comment: Baseline labs 01/15/23 WBC 9.4 Hgb 15.0 Hct 46.2 Plt Count 341 Estimated GFR > 60 Total Bilirubin 0.8 AST 69 H ALT 87 H Alkaline Phosphatase 51 Hepatitis A IgM Ab Nonreactive Hep Bs Antigen Negative Hep Bs Antibody NONREACTIVE Hep B Core Total Ab Nonreactive Hepatitis C Ab (EIA) Nonreactive Anti-Mitochondrial Ab NEGATIVE Anti-Smooth Muscle Ab <20 Hemochromatosis screen was negative ULTRASOUND OF THE ABDOMEN WITH ELASTOGRAPHY 08/25/23 (F0-F1 CURRENT LABS 07/29/23 16:15 Ferritin 365 H Total Bilirubin 0.5 Direct Bilirubin 0.2 GGT 41 AST 34 ALT 68 H Alkaline Phosphatase 55 Ceruloplasmin 39 H HIV 1&2 Ab/P24 Ag 4thGn Nonreactive ULTRASOUND OF THE ABDOMEN WITH ELASTOGRAPHY 08/25/23 (F0-F1) IMPRESSION: * Liver is diffusely hyperechoic. Findings are consistent with steatosis. No evidence of focal liver lesion. * Shear wave liver elastography reveals a median stiffness of 1.65 m/s (reference: normal median stiffness is 1.3 m/s or less). In the absence of other known clinical signs, this rules out compensated advanced chronic liver disease Code(s): K75.81 - Nonalcoholic steatohepatitis (GUTIERREZ) Category: Medical (2) Morbid obesity: Code(s): E66.01 - Morbid (severe) obesity due to excess calories Category: Medical (3) Elevated ferritin: Code(s): R79.89 - Other specified abnormal findings of blood chemistry Category: Medical Plan His weight has increased 20 lbs since 12/2023, he attributes this to seroquel. He has developed a feeling of pressure discomfort over the past year in the RUQ area. The discomfort is always present and does not change during the day. He would not describe it exactly his pain. He can not identify exacerbating or remitting factors, not effected by eating or BM and he is s/p ana. Some lower back pain upon awakening, no other concerns, no CIC or diarrhea. No trauma to the area. So we will get US and repeat labs for GUTIERREZ. ROV 3 mos. Orders: Orders Comprehensive Met. Panel Today K75.81 - Nonalcoholic steatohepatitis (GUTIERREZ) Complete Blood Count Auto Diff Today K75.81 - Nonalcoholic steatohepatitis (GUTIERREZ) Alpha Fetoprotein Today K75.81 - Nonalcoholic steatohepatitis (GUTIERREZ) US abdomen complete Today K75.81 - Nonalcoholic steatohepatitis (GUTIERREZ) Ferritin Today K75.81 - Nonalcoholic steatohepatitis (GUTIERREZ) Liver Fibrosis Pnl Today K75.81 - Nonalcoholic steatohepatitis (GUTIERREZ) LABS: Laboratory Tests 01/07/24 10/06/24 18:29 16:42 WBC 9.8 Hgb 14.2 Hct 43.9 Plt Count 358 Estimated GFR > 60 Ferritin 186 Total Bilirubin 0.4 AST 24 63 H ALT 39 113 H Alkaline Phosphatase 60 Liver Fibrosis Stage F0 Alpha Fetoprotein 1.8 ULTRASOUND OF THE ABDOMEN 12/05/2024 Findings: The visualized pancreas head is normal. Remaining pancreas is obscured by bowel gas. The visualized aorta and inferior vena cava are normal caliber, atherosclerotic changes of mid to distal aorta, proximal aorta is not seen. The liver is enlarged, right lobe length is 20.6 cm. Markedly increased echogenicity of the liver parenchyma, the posterior and superior aspect of the liver are not well visualized, diaphragm is mostly obscured. No large focal lesion is seen. No intrahepatic bile duct dilatation. The common duct is not visualized. Status post cholecystectomy. The main portal vein is patent with antegrade flow. The right kidney upper and lower poles are mostly obscured by shadowing, grossly normal, 10.7 cm in length. The left kidney upper pole is obscured by bowel gas, otherwise normal, 12.1 cm in length. The spleen is mostly obscured by rib and gas shadows, not enlarged, 10.9 cm in length. No free fluid in the abdomen. Impression: Hepatomegaly with severe steatosis. TODAY'S VISIT [facility] Medical History (Updated 02/02/25 @ 16:42 by HALEIGH Cabral) Transaminitis Obesity BMI 39.0-39.9,adult Elevated ferritin DJD (degenerative joint disease) Anxiety Morbid obesity Depression Sleep apnea Surgical History S/P medial meniscus repair of left knee Hx of knee surgery Hx of cholecystectomy History of tonsillectomy Family History Mother Diabetes Arthritis Father No problems noted. Brother No problems noted. Brother No problems noted. Sister No problems noted. Sister No problems noted. Son ADHD Son No problems noted. Daughter No problems noted. Daughter No problems noted. 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 Review of Systems Const Denies fatigue, Denies fever(s), Denies night sweats, Denies poor appetite, Reports weight gain and Denies weight loss ENT Reports Normal hearing present, Denies dental pain, Denies dysphagia, Denies hearing loss, Denies mouth pain, Denies odynophagia, Denies throat swelling, Denies tongue swelling and Reports other (Dentition adequate) Card Reports no additional complaints Resp Reports no additional complaints GI Details: Reports abdominal pain, Denies melena, Denies bloating, Denies hematochezia, Denies constipation, Denies GI cramping, Denies dysphagia, Denies excessive flatus, Denies early satiety, Denies heartburn, Denies diarrhea, Denies nausea, Denies odynophagia, Denies vomiting and Denies hematemesis Musc Reports back pain Skin/Breast Denies pruritus, Denies lesions, Denies rash and Denies jaundice Neuro Reports Normal hearing present and Denies Abnormal speech present Endo Denies fatigue Aller/Immun Denies throat swelling and Denies tongue swelling Physical Exam Vital Signs: Last Vital Signs Pulse 100 02/02/25 16:21 BP 119/70 02/02/25 16:21 BMI result Body Mass Index 46.6 Const General: cooperative, no acute distress, well developed and well groomed Nutritional Appearance: well nourished and obese morbidly obese Orientation/consciousness: oriented to person, oriented to place and oriented to time Limitations: No language barrier HEENT Head: Yes normocephalic and Yes atraumatic Eyes General: appearance normal, both eyes and all related structures Pupils: Equal, round and reactive pupils present Neck Neck: Yes normal visual inspection and Yes no lymphadenopathy Thyroid: Thyroid normal Resp Effort & Inspection: normal respiratory effort and able to speak in complete sentences Auscultation: clear to auscultation bilaterally Cardio Rate: regular rate Rhythm: regular rhythm Heart sounds: Normal, physiologic split S2 sound present Peripheral pulses: radial pulses present and posterior tibial pulses present GI Inspection: No distended, Yes Abdominal panniculus present and Yes obesity Palpation (GI): Soft to palpation, nontender, no guarding, not rigid and No hepatosplenomegaly present Percussion: Yes normal to percussion Auscultation: normal bowel sounds Rectal Exam - Male: Yes deferred Skin General skin exam: no rashes or lesions noted, turgor normal, skin not dry, no jaundice, No spider nevi and no striae Rashes: no rashes Nails: normal Neuro General: oriented to person, oriented to place and oriented to time Cranial nerves: Yes Equal, round and reactive pupils present and Yes Normal hearing present Speech: No Abnormal speech present Extrem General: Yes normal to inspection, No clubbing, No cyanosis and No edema Psych Appearance: grossly normal and well kempt Mental Status: mental status grossly normal Speech and movement: Normal speech and movement present Affect: normal affect Attitude: cooperative Thought process: Normal thought process present and not confabulating Thought content: Normal thought content present Insight: Good insight present (Psych) Judgement: Good judgement present (Psych) Results Reviewed Results Reviewed: Laboratory Tests 01/07/24 10/06/24 18:29 16:42 WBC 9.8 Hgb 14.2 Hct 43.9 Plt Count 358 Estimated GFR > 60 Ferritin 186 Total Bilirubin 0.4 AST 24 63 H ALT 39 113 H Alkaline Phosphatase 60 Liver Fibrosis Stage F0 Alpha Fetoprotein 1.8 ULTRASOUND OF THE ABDOMEN 12/05/2024 Findings: The visualized pancreas head is normal. Remaining pancreas is obscured by bowel gas. The visualized aorta and inferior vena cava are normal caliber, atherosclerotic changes of mid to distal aorta, proximal aorta is not seen. The liver is enlarged, right lobe length is 20.6 cm. Markedly increased echogenicity of the liver parenchyma, the posterior and superior aspect of the liver are not well visualized, diaphragm is mostly obscured. No large focal lesion is seen. No intrahepatic bile duct dilatation. The common duct is not visualized. Status post cholecystectomy. The main portal vein is patent with antegrade flow. The right kidney upper and lower poles are mostly obscured by shadowing, grossly normal, 10.7 cm in length. The left kidney upper pole is obscured by bowel gas, otherwise normal, 12.1 cm in length. The spleen is mostly obscured by rib and gas shadows, not enlarged, 10.9 cm in length. No free fluid in the abdomen. Impression: Hepatomegaly with severe steatosis. Assessment & Plan Assessment & Plan (1) GUTIERREZ (nonalcoholic steatohepatitis): Comment: Baseline labs 01/15/23 WBC 9.4 Hgb 15.0 Hct 46.2 Plt Count 341 Estimated GFR > 60 Total Bilirubin 0.8 AST 69 H ALT 87 H Alkaline Phosphatase 51 Hepatitis A IgM Ab Nonreactive Hep Bs Antigen Negative Hep Bs Antibody NONREACTIVE Hep B Core Total Ab Nonreactive Hepatitis C Ab (EIA) Nonreactive Anti-Mitochondrial Ab NEGATIVE Anti-Smooth Muscle Ab <20 Hemochromatosis screen was negative ULTRASOUND OF THE ABDOMEN WITH ELASTOGRAPHY 08/25/23 (F0-F1 CURRENT LABS 07/29/23 16:15 Ferritin 365 H Total Bilirubin 0.5 Direct Bilirubin 0.2 GGT 41 AST 34 ALT 68 H Alkaline Phosphatase 55 Ceruloplasmin 39 H HIV 1&2 Ab/P24 Ag 4thGn Nonreactive ULTRASOUND OF THE ABDOMEN WITH ELASTOGRAPHY 08/25/23 (F0-F1) IMPRESSION: * Liver is diffusely hyperechoic. Findings are consistent with steatosis. No evidence of focal liver lesion. * Shear wave liver elastography reveals a median stiffness of 1.65 m/s (reference: normal median stiffness is 1.3 m/s or less). In the absence of other known clinical signs, this rules out compensated advanced chronic liver disease Code(s): K75.81 - Nonalcoholic steatohepatitis (GUTIERREZ) Category: Medical (2) Morbid obesity: Code(s): E66.01 - Morbid (severe) obesity due to excess calories Category: Medical (3) Transaminitis: Comment: Baseline labs 01/15/23 WBC 9.4 Hgb 15.0 Hct 46.2 Plt Count 341 Estimated GFR > 60 Total Bilirubin 0.8 AST 69 H ALT 87 H Alkaline Phosphatase 51 Hepatitis A IgM Ab Nonreactive Hep Bs Antigen Negative Hep Bs Antibody NONREACTIVE Hep B Core Total Ab Nonreactive Hepatitis C Ab (EIA) Nonreactive Anti-Mitochondrial Ab NEGATIVE Anti-Smooth Muscle Ab <20 CURRENT LABS ULTRASOUND Code(s): R74.01 - Elevation of levels of liver transaminase levels Category: Medical Plan - The patient is a 39 year old male presenting with liver enzyme elevation and concern over progression of fatty liver disease. - Documented increase in liver enzymes, with recent ultrasound indicating severe fatty liver infiltration, where prior was mild. - Gained 7 pounds over a year, contributing to existing overweight, possibly impacting liver function. - Seroquel discontinued for a month due to concerns about liver health, and no known hepatitis or significant alcohol use reported. Given the severity of the rise since 2023 with only a 7 lb weight gain (although he felt he gained 20 lb since starting the Seroquel overall) I think we need to repeat a few parameters such as the hepatitis AB C and HIV screens along with the autoimmune markers. I will also add a ceruloplasmin. It is entirely possible that this is morbid obesity layered on top of Seroquel toxicity. He has been off of the Seroquel for about a month so if this was the driving underlying factor this should show in the repeat labs today. He has random glucose was only 100 so I do not think diabetes isn't underlying concern. (He has developed a feeling of pressure discomfort over the past year in the RUQ area. The discomfort is always present and does not change during the day. He would not describe it exactly his pain. He can not identify exacerbating or remitting factors, not effected by eating or BM and he is s/p ana. Some lower back pain upon awakening, no other concerns, no CIC or diarrhea. No trauma to the area. ) Return office visit in 4 weeks Orders: Orders Mitochondrial Antibody Today R74.01 - Elevation of levels of liver transaminase levels Ceruloplasmin Today R74.01 - Elevation of levels of liver transaminase levels Liver Panel Today R74.01 - Elevation of levels of liver transaminase levels Smooth Muscle Antibody Today R74.01 - Elevation of levels of liver transaminase levels TSH reflex Free T4 Today R74.01 - Elevation of levels of liver transaminase levels Phosphatidylethanol, Blood Today R74.01 - Elevation of levels of liver transaminase levels Hepatitis A,B,C Profile Today R74.01 - Elevation of levels of liver transaminase levels HIV Ab/Ag Today R74.01 - Elevation of levels of liver transaminase levels Ferritin Today R74.01 - Elevation of levels of liver transaminase levels Coding Level of Care Code Est Pt Level 4 (86736) Diagnoses GUTIERREZ (nonalcoholic steatohepatitis) K75.81 Morbid obesity E66.01 Transaminitis R74.01
[2025-02-02 16:21] VITALS: BP 119/70; PULSE 100; BMI 46.6
--- OUTSIDE RECORDS SUMMARY | 2025-02-02 16:42 | XMS_ITS | Encounter Summary ---
Author Organization [employer] Address [address] [facility] 7t [place] [address] Care Team Providers Care Gasoline Service Attendant Name Role Phone Latricia Palmer MD Primary Care Provide r Encounter Details Date Type Department Care Team ([facility] st Contact Info) Description 11/11/2024 Orders Only [facility] [address] [place] [address] Latricia Palmer MD [address] [place], [place] [phone] Social History Tobacco Use Types Packs/Day Years [...] Male 03/31/2022 10:20 AM EDT Sexual Orientation Straight 01/27/2025 1: 16 PM EDT documented as of this encounter Plan of Treatment Upcoming Encounters Date Type Department Care Team (Late st Contact Info) Description 02/27/2025 3:30 PM EDT Office Visit [facility] [address] [place] [address] Latricia Palmer MD [address] [place] [address] documented as of this encounter Procedures Procedure Name Priority Date/Time Associated Diagnosis Comments US ABDOMEN COMPLETE Routine 12/05/2024 3 :28 PM EDT documented in this encounter Results * US Abdomen Complete (12/05/2024 3:28 PM EDT) Anatomical Region Laterality Modality Abdomen Ultrasound 12/05/2024 3:28 PM EDT Narrative 12/05/2024 3:29 PM EDT [address] [address] Ultrasound Report Signed Patient: Cristofer Ramsey MR#: [id number] : 1985 Acct:[id number] Age/Sex: 39 / M ADM Date: 12/05/24 Loc: HO.US Attending Dr: Denise RICARDO Ordering Physician: Denise Morales Date of Service: 12/05/24 Procedure(s): US abdomen complete Accession Number(s): [id number] cc: Latricia Palmer MD; Denise Morales CLINICAL HISTORY: K75.81 - Nonalcoholic steatohepatitis (GUTIERREZ) US abdomen complete Comparison: None Findings: The visualized pancreas head is normal. Remaining pancreas is obscured by bowel gas. The visualized aorta and inferior vena cava are normal caliber, atherosclerotic changes of mid to distal aorta, proximal aorta is not seen. The liver is enlarged, right lobe length is 20.6 cm. Markedly increased echogenicity of the liver parenchyma, the posterior and superior aspect of the liver are not well visualized, diaphragm is mostly obscured. No large focal lesion is seen. No intrahepatic bile duct dilatation. The common duct is not visualized. Status post cholecystectomy. The main portal vein is patent with antegrade flow. The right kidney upper and lower poles are mostly obscured by shadowing, grossly normal, 10.7 cm in length. The left kidney upper pole is obscured by bowel gas, otherwise normal, 12.1 cm in length. The spleen is mostly obscured by rib and gas shadows, not enlarged, 10.9 cm in length. No free fluid in the abdomen. Impression: Hepatomegaly with severe steatosis. This document has been electronically signed by: Avril Claros MD on 12/05/2024 15:28:17 Dictated By: Avril Claros MD Signed By: <Electronically signed by Avril Claros MD in OV> 12/05/24 1529 DD/ 1528 TD/TT: 12/05/24 1528 Account Developer: Procedure Note Donotuseinterpreter, Image - 12/05/[address] [address] Ultrasound Report Signed Patient: Cristofer Ramsey RMR#: [id number] : 1985Acct:[id number] Age/Sex: 39 / MADM Date: 12/05/24 Loc: HO.US Attending Dr: Denise RICARDO Ordering Physician: Denise Morales Date of Service: 12/05/24 Procedure(s): US abdomen complete Accession Number(s): [id number] cc: Latricia Palmer MD; Morales-C CLINICAL HISTORY: K75.81 - Nonalcoholic steatohepatitis (GUTIERREZ) US abdomen complete Comparison: None Findings: The visualized pancreas head is normal. Remaining pancreas is obscured by bowel gas. The visualized aorta and inferior vena cava are normal caliber, atherosclerotic changes of mid to distal aorta, proximal aorta is notseen. The liver is enlarged, right lobe length is 20.6 cm. Markedly increased echogenicity of the liver parenchyma, the posterior and superior aspect of the liver are not well visualized, diaphragm is mostly obscured. No large focal lesion is seen. No intrahepatic bile duct dilatation. The common duct is not visualized. Status post cholecystectomy. The main portal vein is patent with antegrade flow. The right kidney upper and lower poles are mostly obscured by shadowing, grossly normal, 10.7 cm in length. The left kidney upper pole is obscured by bowel gas, otherwise normal, 12.1 cm in length. The spleen is mostly obscured by rib and gas shadows, not enlarged, 10.9 cm in length. No free fluid in the abdomen. Impression: Hepatomegaly with severe steatosis. This document has been electronically signed by: Avril Claros MD on 12/05/2024 15:28:17 Dictated By: Avril Claros MD Signed By: <Electronically signed by Avril Claros MD in OV> 12/05/24 1529 DD/ 1528 TD/TT: 12/05/24 1528 Account Developer: [facility] External Provider IMG US PROCEDURES Final Result documented in this encounter Visit Diagnoses Not on filedocumented in this encounter Additional Health Concerns Assessment Noted Time PHQ-9 Depression Total Score: 7 06/17/19 25 3:11 PM EST documented as of this encounter Care Teams Gasoline Service Attendant Relationship Specialty Start Date End Date Latricia Palmer MD [address] [place] [phone] PCP - General Family Medicine 03/12/18 documented as of this encounter
--- OUTSIDE RECORDS SUMMARY | 2025-02-02 16:42 | XMS_ITS | Encounter Summary ---
Author Organization [employer] Address [address] [place] [address] [address] [address] Care Team Providers Care Maintainer Sewer [employer] Waterworks Name Role Phone Latricia Palmer MD Primary Care Provide r Reason for Visit * Reason Comments Med Refill Encounter Details Date Type Department Care Team (Late st Contact Info) Description 01/11/2024 Refill [facility] [address] [place] [phone] Hoang Avalos FNP Social History Tobacco Use [...] Description 02/27/2025 3:30 PM EDT Office Visit [facility] [address] [place] [address] [phone] Latricia Palmer MD [address] [place] [address] documented as of this encounter Visit Diagnoses Not on filedocumented in this encounter Additional Health Concerns Assessment Noted Time PHQ-9 Depression Total Score: 15 024 3:08 PM EDT documented as of this encounter Care Teams Maintainer [employer] Waterworks Relationship Specialty Start Date End Date Latricia Palmer MD [address] [place] [address] PCP - General Family Medicine 03/12/18 documented as of this encounter
--- OUTSIDE RECORDS SUMMARY | 2025-02-02 16:42 | XMS_ITS | Encounter Summary ---
Author Organization [facility] Address [address] [place] [phone] Phone Care Team Providers Care Loss Mitigation Specialist Name Role Phone Bandar Triana MD Primary Care Provider [phone] Encounter Details Date Type Department Care Team (Late st Contact Info) Description 04/02/2017 Conversion Encounter [facility] [address] [place] [address] Social History Tobacco Use Types Packs/Day Years [...] on filedocumented in this encounter Care Teams Loss Mitigation Specialist Relationship Specialty Start Date End Date Bandar Triana MD [address] [place] [address] PCP - General 01/09/17 11/05/22 documented as of this encounter
--- OUTSIDE RECORDS SUMMARY | 2025-02-02 16:42 | XMS_ITS | Encounter Summary ---
Author Organization [employer] Address [address] [place] [address] Care Team Providers Care Pawn Broker Name Role Phone Latricia Palmer MD Primary Care Provide r Reason for Visit * Reason Comments Med Refill Encounter Details Date Type Department Care Team (Late st Contact Info) Description 09/30/2023 Refill [facility] [address] [place] [address] [phone] Hoang Avalos FNP Social History Tobacco Use [...] Description 02/27/2025 3:30 PM EDT Office Visit [facility] [address] [place] [address] [phone] Latricia Palmer MD [address] [place] [phone] documented as of this encounter Visit Diagnoses Not on filedocumented in this encounter Additional Health Concerns Assessment Noted Time PHQ-9 Depression Total Score: 7 08/31/19 24 2:48 PM EDT documented as of this encounter Care Teams Pawn Broker Relationship Specialty Start Date End Date Latricia Palmer MD [address] [place] [address] PCP - General Family Medicine 03/12/18 documented as of this encounter
--- OUTSIDE RECORDS SUMMARY | 2025-02-02 16:42 | XMS_ITS | Encounter Summary ---
Author Organization [employer] Address [address] [place] [address] Care Team Providers Care Director Of Product Management Name Role Phone Latricia Palmer MD Primary Care Provide r Encounter Details Date Type Department Care Team (Late st Contact Info) Description 07/22/2022 Orders Only [facility] [address] [place] [address] Pauline Meyer LPN Social History Tobacco Use [...] Description 02/27/2025 3:30 PM EDT Office Visit [facility] [address] [place] [address] Latricia Palmer MD [address] [place] [address] documented as of this encounter Visit Diagnoses Not on filedocumented in this encounter Care Teams Director Of Product Management Relationship Specialty Start Date End Date Latricia Palmer MD [address] [place] [phone] PCP - General Family Medicine 03/12/18 documented as of this encounter
--- OUTSIDE RECORDS SUMMARY | 2025-02-02 16:42 | XMS_ITS | Clinical Summary ---
Author Organization [employer] Address [address] [place] [address] 7 [place] [address] Care Team Providers Care Curator Medical Museum Name Role Phone Latricia Palmer MD Primary Care Provide r Allergies Active Allergy Reactions Criticality Noted Date Comments Clindamycin Itching,Rash Low 09/13/2020 Other reaction(s): Hives Medications * This document contains information received from the source organization and may not represent a complete record from that organization. valACYclovir (Valtrex) 500 MG tablet TAKE 1 TABLET BY MOUTH TWICE DAILY FOR 3 DAYS 6 tablet 1 11/30/19 25 Active doxepin (SINEquan) 50 MG capsuleIndicati ons:Mood disorder (CMS/HCC),Insom maddison, unspecified type Take 1 capsule (50 mg) by mouth at bedtime. 30 capsule 2 01/17/20 25 026 Active hydrOXYzine HCl (Atarax) 25 MG tabletIndicatio ns:Mood disorder (CMS/HCC) Take 2 tablets (50 mg) by mouth if needed at bedtime for anxiety. 30 tablet 2 01/17/20 25 025 Active hydrOXYzine HCl (Atarax) 25 MG tabletIndicatio ns:Mood disorder (CMS/HCC) Take 2 tablets (50 mg) by mouth if needed at bedtime for anxiety. 30 tablet 10/11/19 25 025 Discontinued venlafaxine XR (Effexor XR) 37.5 MG 24 hr capsuleIndicati ons:Depressive disorder TAKE 1 CAPSULE BY MOUTH EVERY MORNING. DO NOT BREAK, CRUSH, DISSOLVE OR CHEW. 30 capsule 1 12/08/19 025 Discontinued QUEtiapine (SEROquel) 50 MG tabletIndicatio ns:Mood disorder (CMS/HCC) Take 3 tablets (150 mg) by mouth at bedtime. 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 I agree with Valtrex Rx to start at the onset of symptoms for now, patient reports neuropathic symptoms 1 or 2 days prior to onset of lesions. She is advised to take it within the first 72 hours of onset of symptoms. Rx Valtrex 500 mg twice daily x 3 days at onset of symptoms and follow-up with PCP Agree for complete STI testing Sexually transmitted disease counseling 11/23/19 Assessment & Plan (11/22/2024 5:49 PM EDT): We discussed about STI prevention and decrease risk of STIs, use of condom, avoid using drugs or recreational substance at the time of intercourse or prior to it, use of PrEP. Agreed to be tested for STI Discussed about CRS building services to come on a as needed basis Diminished vision 06/17/2024 Encounter for preventive care [...] disorder? Other? Patient has an appointment with food safety manager I will refer patient to cardiology Spirometry ordered Other chest pain 10/24/2022 Numbness and tingling in both hands 10/24/2022 Folliculitis 10/22/2022 Moderate major depression, single episode 2022 Morbid obesity 10/22/2022 Rheumatoid factor positive 09/29/2022 Mood disorder 08/04/2022 Assessment & Plan (01/16/2025 3:58 PM EDT): I will start him on doxepin 50 mg at bedtime, I reviewed side effects with patient I will refer him to [facility] plan is for him to have now a psychiatrist and a therapist Meanwhile we will follow-up with him in 6 weeks for possible titration of medication Assessment & Plan (12/10/2023 4:18 PM EDT): [...] retiring, patient will be referred to new [facility] Psychiatric provider. Pt understands that appts will be via televisit, and the provider will not be an employee of [facility]. He gives permission to share PHI. [...] and then transfer his care to new [facility] psychiatric provider. He agrees with the [...] instead. Will now transfer all prescriptions to [facility] Pharmacy for home delivery. Tolerating Wellbutrin [...] agrees with the plan. Assessment & Plan (05/11/2023 4:00 PM EST): [...] agrees with the plan. Assessment & Plan (03/10/2023 3:14 PM EDT): [...] agrees with the plan. Assessment & Plan (01/12/2023 3:37 PM EDT): [...] disorder 04/30/2022 Insomnia 03/12/2018 Assessment & Plan (01/16/2025 3:58 PM EDT): Sleep hygiene counseling reviewed Doxepin 50 mg at bedtime Assessment & Plan (10/27/2023 4:30 PM EDT): [...] organization. 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 01/16/2025 Travel 01/09/2025 Telephone [facility] [address] [place] [address] [phone] Latricia Palmer MD Medication Question 12/23/2024 Refill [facility] [address] [place], [place] [phone] Latricia Palmer MD Mood disorder (CMS/HCC) 12/07/2024 Refill [facility] [address] [place], [place] [phone] Latricia Palmer MD Depressive disorder 12/06/2024 Patient Outreach [facility] [address] [place] [address] [phone] Latricia Palmer MD Pre-visit Planning (SDOH screening completed on 06/17/2024) 11/28/2024 Refill [facility] [address] [place] [address] [phone] Lyn Quinn MD 11/22/2024 5:40 PM EDT Office Visit [facility] [address] [place] [address] Lyn Quinn MD Sexually transmitted disease counseling (Primary Dx); History of herpes genitalis 11/11/2024 Orders Only [facility] [address] [place] [address] Latricia Palmer MD 11/11/2024 Telephone [facility] [address] [place], [place] [phone] Latricia Palmer MD Med Refill from Last 3 Months Immunizations Immunization Administration Dates Next Due Influenza injectable quadrivalent preservative f ree 05/07/2021 Social History Tobacco Use Types Packs/Day Years Used Date Smoking Tobacco: Never Smokeless Tobacco: Never Tobacco Cessation:Counseling Given: Not Answered Alcohol Use Standard Drinks/Week Comments Never 0 (1 standard drink = 0.6 oz [...] Orientation Straight 01/27/2025 1: 16 PM EDT Last Filed Vital Signs Vital Sign Reading Time Taken Comments Blood Pressure 142/89 11/22/2024 5:19 PM EDT Pulse 98 11/22/2024 5:19 PM EDT Temperature 36.3 C (97.3 F) 11/22/2024 5:19 PM EDT Respiratory Rate 20 11/22/2024 5:19 PM EDT Oxygen Saturation 95% 11/22/2024 5:19 PM EDT Inhaled Oxygen Concentration - - Weight 137 kg (301 lb) 11/22/2024 5:19 PM EDT Height 170.2 cm (5' 7 ) 11/22/2024 5:19 PM EDT Body Mass Index 47.14 11/22/2024 5:19 PM EDT Plan of Treatment Upcoming Encounters Date Type Department Care Team (Late st Contact Info) Description 02/27/2025 3:30 PM EDT Office Visit [facility] [address] [place], [place] [phone] Latricia Palmer MD [address] [place] [address] Health Maintenance Due Date Last Done Comments DTaP/Tdap/Td Vaccines (6 - Tdap) 1998 07/05/1996, 07/02/1996, 01/16/1992, Additional history exists Family Planning (PISQ) 2002 HPV Vaccines (1 - Male 3-dose series) 2002 COVID-19 Vaccine (2 - season) 2025 11/19/2020 Influenza Vaccine (#1) 2025 05/07/2021 Depression Screening 06/17/2025 06/17/2024, 06/17/19 SDOH Screening 06/17/2025 06/17/2024 Alcohol/Substance Use Screening 01/16/2026 01/16/2025 Disability Screening 01/16/2026 01/16/2025 Tobacco Screening 01/16/2026 01/16/2025 Lipid Panel 11/03/2028 11/04/2023, 05/14/2022 Zoster Vaccines [...] patient's age to complete this topic Meningococcal B Vaccine Aged Out No l onger eligible based on patient's age to complete this topic Meningococcal Vaccine Aged Out No gracia jorgito eligible based on patient's age to complete this topic Pneumococcal Vaccine: Pediatrics (0 to 5 Years) and At-Risk Patients (6 to 49) Years Aged Out No longer eligible based on patient's age to complete this topic RSV under 20 months Aged Out No longe r eligible based on patient's age to complete this topic Rotavirus Vaccines Aged Out No longer eligible based on patient's age to complete this topic Procedures Procedure Name Priority Date/Time Associated Diagnosis Comments US ABDOMEN COMPLETE Routine 12/05/2024 3 :28 PM EDT LIPID PANEL, STANDARD Routine 11/04/2023 12:05 PM EDT Health care maintenance HIV 1/2 ANTIGEN/ANTIBODY, FOURTH GENERATION W/RFL Routine 07/29/2023 4:15 PM EST HEPATITIS PANEL, GENERAL Routine 01/15/2023 12:26 PM EDT from Last 3 Months or Most Recently Relevant to Health Maintenance Results * US Abdomen Complete (12/05/2024 3:28 PM EDT) Anatomical Region Laterality Modality Abdomen Ultrasound 12/05/2024 3:28 PM EDT Narrative 12/05/2024 3:29 PM EDT [place] [address] Ultrasound Report Signed Patient: Cristofer Ramsey MR#: [id number] : 1985 Acct:[id number] Age/Sex: 39 / M ADM Date: 12/05/24 Loc: HO.US Attending Dr: Denise RICARDO Ordering Physician: Denise Morales Date of Service: 12/05/24 Procedure(s): US abdomen complete Accession Number(s): [id number] cc: Latricia Palmer MD; Denise Morales CLINICAL [...] 12/05/24 1529 DD/ 1528 TD/TT: 12/05/24 1528 Crutcher Helper: Procedure Note Donotuseinterpreter, Image - 12/05/[address] [address] Ultrasound Report Signed Patient: Cristofer Ramsey RMR#: [id number] : 1985Acct:[id number] Age/Sex: 39 / MADM Date: 12/05/24 Loc: HO.US Attending Dr: Denise RICARDO Ordering Physician: Denise oMrales Date of Service: 12/05/24 Procedure(s): US abdomen complete Accession Number(s): [id number] cc: Latricia Palmer MD; Denise Morales CLINICAL [...] 12/05/24 1529 DD/ 1528 TD/TT: 12/05/24 1528 Crutcher Helper: us [facility] External Provider IMG US PROCEDURES Final Result * (ABNORMAL) Lipid Panel, Standard (11/04/2023 12:05 PM EDT) Triglycerides 87 <150 mg/dL [facility] Comment:Desirable Triglyceri de: less than 150 mg/dLBorderline High Triglyceride 150-199 mg/dLHigh Triglyceride: 200-499 mg/dLVery High Triglyceride: greater than or equal to 5OO mg/dL Cholesterol 149 <200 mg/dL [facility] Comment:Desirable Cholestero l: less than 200 mg/dLBorderline High Cholesterol: 200-239 mg/dLHigh Cholesterol: greater than 239 mg/dL LDL Cholesterol Calculated 96 <100 mg/dL [facility] Comment:Desirable LDL: less than 100 mg/dLNear Optimal/Above Optimal LDL: 110- 129 mg/dLBorderline High LDL: 130-159 mg/dLHigh LDL: 160-189 mg/dLVery High LDL: greater than or equal to 190 mg/dL HDL Cholesterol 36(L) >40 mg/dL [facility] Comment:Desirable HDL: great er than 40 mg/dL Note: This HDL assay may give artificially low results in patients with liver disease. Blood Venous blood specimen / Unknown 11/04/2023 12:05 PM EDT 11/04/2023 1:59 PM EDT Latricia Melara MD LAB BLOOD ORDERABLES Final Result [facility] [address] [place] [address] [phone] * HIV-1/2 Antigen and Antibodies, Fourth Generation, with Reflexes (07/29/2023 4:15 PM EST) HIV AB/AG Nonreactive Nonreactive [facility] Comment:HIV-1 p24 Ag and/or HIV-1/HIV-2 Ab not detected.A test result that is nonreactive does not exclude thepossibility of exposure to or infection with HIV-1 and/orHIV-2. Nonreactive results in this assay for individualswith prior exposure to HIV-1 and/or HIV-2 may be due toantigen and antibody levels that are below the limit ofdetection of this assay.The [place] [place] HIV Ag/Ab Combo assay result andsupplemental assay results should be interpreted inconjunction with the patient's clinical presentation,history and other laboratory results. If the results areinconsistent with clinical evidence, additional testing issuggested to confirm the result. 07/29/2023 4:15 PM EST 07/29/2023 4:16 PM EST Generic External Data Provider LAB BLOOD ORDERAB LES Final Result Performing Organization Address [facility]/ZIP Co de Phone Number [facility] [address] [place] [address] [phone] * Hepatitis Panel, General (01/15/2023 12:26 PM EDT) Hepatitis A IgM Nonreactive Nonreactive [facility] Comment:IgM antibodies to MATA V not detected; does not exclude earlyacute or recovered HAV infection. ~Hepatitis B Surface Antibody NONREACTIVE Nonreactive [facility] Comment:Nonreactive: < 8.00 mIU/mL Hepatitis B Core Antibody Nonreactive Nonreactive [facility] Hepatitis C Antibody Nonreactive Nonreactive [facility] Comment:Antibodies to HCV no t detected; does not exclude early acuteHCV infection. Hepatitis B Surface Ag Negative Negative [facility] 01/15/2023 12:2 6 PM EDT 01/15/2023 12:36 PM EDT [facility] External Provider LAB BLO OD ORDERABLES Final Result Performing Organization Address [facility]/ZIP Co de Phone Number [facility] [address] [place] [address] [phone] from Last 3 Months or Most Recently Relevant to Health Maintenance Insurance BS PPO * Guarantor: Cristofer Ramsey Account Type Relation to Patient Date of Phone Billing Address Personal/Family Self [address] [place] [address] * Guarantor: Cristofer Ramsey Account Type Relation to Patient Date of Phone Billing Address Personal/Family Self [address] [place] [address] * Guarantor: Cristofer Ramsey Account Type Relation to Patient Date of Phone Billing Address Personal/Family Self [address] [place] [address] Care Teams Curator Medical Museum Relationship Specialty Start Date End Date Latricia Palmer MD [address] [place] [phone] PCP - General Family Medicine 03/12/18
--- OUTSIDE RECORDS SUMMARY | 2025-02-02 16:42 | XMS_ITS | Encounter Summary ---
Author Organization [employer] Address [address] [place] [address] Care Team Providers Care Mobile Game Engineer Name Role Phone Ltaricia Palmer MD Primary Care Provide r Reason for Visit * Reason Onset Date Comments Med Refill 11/11/2024 Encounter Details Date Type Department Care Team ([facility] st Contact Info) Description 11/11/2024 Telephone [facility] [address] [place] [address] Latricia Palmer MD [address] [place] [address] Med Refill Social History Tobacco Use Types Packs/Day Years [...] PM EDT documented as of this encounter Functional Status * Over the last 2 weeks, how often have you been bothered by any of the following problems? Question Answer Date of Assessment Author Feeling nervous, anxious, or on edge 1 01/16/2025 3:13 PM EDT Brenna Saravia MA Not being able to stop or co ntrol worrying 1 01/16/2025 3:13 PM EDT Brenna Saravia MA Worrying too much about diff erent things 3 01/16/2025 3:13 PM EDT Brenna Saravia MA Trouble relaxing 1 01/16/2025 3:13 PM EDT Brenna Pal MA Being so restless that it is hard to sit still 1 01/16/2025 3:13 PM EDT Brenna Saravia MA Becoming easily annoyed or irritable 1 01/16/2025 3:13 PM EDT Brenna Saravia MA Feeling afraid as if somethi ng awful might happen 1 01/16/2025 3:13 PM EDT Brenna Saravia MA VIANEY-7 Total Score 9 01/16/2025 3:13 PM EDT Brenna Saravia MA documented as of this encounter Miscellaneous Notes * Telephone Encounter - Pauline Meyer LPN - 11/11/2024 11:01 AM EDT Please review request medication is not on current med list * Telephone Encounter - Caroline Perez Robert - 11/11/2024 10:56 AM EDT TC from pt requesting medication refill. Medications needing refill : - Valacyclovir 1000mg To be sent to: - [facility] - [place], [place] - [address] [facility] documented in this encounter Plan of Treatment Upcoming Encounters Date Type Department Care Team (Late st Contact Info) Description 02/27/2025 3:30 PM EDT Office Visit [facility] [address] [place] [address] Latricia Palmer MD [address] [place] [address] documented as of this encounter Visit Diagnoses Not on filedocumented in this encounter Additional Health Concerns Assessment Noted Time PHQ-9 Depression Total Score: 7 06/17/19 25 3:11 PM EST documented as of this encounter Care Teams Mobile Game Engineer Relationship Specialty Start Date End Date Latricia Palmer MD [address] [place] [address] PCP - General Family Medicine 03/12/18 documented as of this encounter
--- OUTSIDE RECORDS SUMMARY | 2025-02-02 16:42 | XMS_ITS | Clinical Summary ---
Author Organization [facility] Address [address] [place] [address] Phone Care Team Providers Care Stable Hand Name Role Phone Unavailable Primary Care Provider [...] of 2 - 13+ 2-dose series) 2000 HPV Vaccines (1 - 3-dose SCDM series) 2014 Influenza Vaccines (#1) 2024 COVID-19 Vaccine ( season) 2025 IPV Vaccines Completed 01/16/1992, 09/30, 04/01/1989, Additional [...]
== END 2025-02-02 16:45 | disposition home or self-care (01) ==
LOC: HO.HGI 16:16
PROVIDERS: PCP Internal Medicine; Visit Provider Nurse Practitioner
DX: K75.81 Nonalcoholic steatohepatitis (NASH) (principal); E66.01 Morbid (severe) obesity due to excess calories; R74.01 Elevation of levels of liver transaminase levels
CPT/HCPCS: 99214

== ENCOUNTER 2025-03-01 07:27 | Outpatient (REF) | payer BC, SELFPAY ==
--- OUTSIDE RECORDS SUMMARY | 2025-02-27 15:30 | XMS_ITS | Encounter Summary ---
Author Organization [employer] Address [address] [place] [address] [address] [address] Care Team Providers Care Automatic Hemmer Name Role Phone Latricia Palmer MD Primary Care Provide r Reason for Referral * Consultation (Routine) - Authorized Specialty Diagnoses / Procedures Referred By Karla silva Referred To Contact Urology Diagnoses Erectile dysfunction, unspecified erectile dysfunction type Latricia Palmer MD [address] [place] [address] Phone: tel: fax: Tariq Cohen MD [address] [place] [address] Phone: tel: Referral ID Status Reason Start Date Expiration Date Visits Requested Visits Authorized [id number] Authorized Specialty Services Required 02/27/2025 02/27/2026 1 1 * Medications - Closed Specialty Diagnoses / Procedures Referred By Contac t Referred To Contact Diagnoses VANESSA (obstructive sleep apnea) Class 3 severe obesity due to excess calories with serious comorbidity and body mass index (BMI) of 45.0 to 49.9 in adult (HCC) Metabolic dysfunction-associated steatotic liver disease (MASLD) Latricia Palmer MD [address] [place] [address] Phone: tel: fax: Referral ID Status Reason Start Date Expiration Date Visits Re quested Visits Authorized [id number] Closed 1 1 Encounter Details Date Type Department Care Team (Late st Contact Info) Description 02/27/2025 3:30 PM EDT Office Visit [facility] [address] [place] [address] Latricia Palmer MD [address] [place] [address] VANESSA (obstructive sleep apnea) (Primary Dx); Erectile dysfunction, unspecified erectile dysfunction type; Class 3 severe obesity due to excess calories with serious comorbidity and body mass index (BMI) of 45.0 to 49.9 in adult; Metabolic dysfunction-associate d steatotic liver disease (MASLD) Social History Tobacco Use Types Packs/Day Years Used Date Smoking Tobacco: Never Smokeless Tobacco: Never Alcohol Use Standard Drinks/Week Comments Never 0 [...] PM EDT documented as of this encounter Last Filed Vital Signs Vital Sign Reading Time Taken Comments Blood Pressure 138/90 02/27/2025 3:54 PM EDT Pulse 91 02/27/2025 3:54 PM EDT Temperature 36.4 C (97.6 F) 02/27/2025 3:54 PM EDT Respiratory Rate 20 02/27/2025 3:54 PM EDT Oxygen Saturation 96% 02/27/2025 3:54 PM EDT Inhaled Oxygen Concentration - - Weight 132 kg (291 lb 12.8 oz) 02/27/2025 3:54 P M EDT Height 170.2 cm (5' 7 ) 02/27/2025 3:54 PM EDT Body Mass Index 45.7 02/27/2025 3:54 PM EDT documented in this encounter Progress Notes * Latricia Melara MD - 02/27/2025 3:30 PM EDT SUBJECTIVE: Cristofer Pennington is a 39 y.o. year old male who presents for Follow up . Acute Concerns: Patient tells me today he has been having some problems regarding sexual function, reports erectiledysfunction, reports that he does not have had an erection in the morning and reports he initially had an erection with a neck sexual encounter but then he is not able to have sexual intercourse. Patient also tells me he has been having more fatigued than normal Patient is concerned about his weight he reports he has been trying with diet and exercise but it does not work Patient has mood disorder and generalized anxiety disorder he has not been followed by a therapist and the psychiatry team in some time, last psych provider left practice and he has not had an appointment with a new psych provider as of yet Social History Social History Narrative Not on file Problem List[1] Mood disorder (CMS/HCC) Rheumatoid factor positive Folliculitis Generalized anxiety disorder Insomnia Moderate major depression, single episode (CMS/HCC) Morbid obesity (CMS/HCC) Depressive disorder VANESSA (obstructive sleep apnea) Dyspnea on exertion Other chest pain Numbness and tingling in both hands Restless leg syndrome Health care maintenance Diminished vision Encounter for preventive care Elevated blood pressure reading History of herpes genitalis Sexually transmitted disease counseling Degenerative tear of meniscus of left knee Erectile dysfunction Class 3 severe obesity due to excess calories with serious comorbidity and body mass index (BMI) of45.0 to 49.9 in adult Metabolic dysfunction-associated steatotic liver disease (MASLD) Family History[2] Review of Systems Constitutional: Positive for fatigue. Negative for activity change, appetite change, chills, diaphoresis, fever and unexpected weight change. HENT: Negative. Respiratory: Negative. Cardiovascular: Negative. Genitourinary: Erectile dysfunction OBJECTIVE: Vitals: 02/27/25 1554 BP: (!) 138/90 BP Location: Left arm Patient Position: Sitting BP Cuff Size: Large adult Pulse: 91 Resp: 20 Temp: 97.6 ??F (36.4 ??C) TempSrc: Temporal SpO2: 96% Weight: 291 lb 12.8 oz (132 kg) Height: 5' 7 (1.702 m) Physical Exam Constitutional: Appearance: Normal appearance. Cardiovascular: Rate and Rhythm: Normal rate and regular rhythm. Pulmonary: Effort: Pulmonary effort is normal. Breath sounds: Normal breath sounds. Abdominal: General: Abdomen is flat. Palpations: Abdomen is soft. Musculoskeletal: Right lower leg: No edema. Left lower leg: No edema. Neurological: Mental Status: He is alert. Follow Up: Follow up for 4-6 weekstlevisit weight montoring. Medications Ordered Prior to Encounter[3] Problem List Items Addressed This Visit Erectile dysfunction Blood work ordered I will refer him to urologist Relevant Orders Testosterone, Total, males (Adult), IA TSH W/Reflex to FT4 Referral to Urology VANESSA (obstructive sleep apnea) - Primary Continue to use CPAP every night I will prescribe for patient Zepbound 2.5 mg weekly Relevant Medications Tirzepatide-Weight Management (Zepbound) 2.5 MG/0.5ML solution auto-injector Class 3 severe obesity due to excess calories with serious comorbidity and body mass index (BMI) of45.0 to 49.9 in adult Extensive counseling about healthy diet and exercise done today I will put in a prescription for Zepbound 2.5 mg weekly, I do not think this patient is a candidatefor phentermine in light of his underlying severe anxiety disorder and mood disorder Side effects of medication and contraindications were reviewed with patient Relevant Medications Tirzepatide-Weight Management (Zepbound) 2.5 MG/0.5ML solution auto-injector Other Relevant Orders Hemoglobin A1c Basic Metabolic Panel Vitamin D, 25-Hydroxy, Total, Immunoassay Metabolic dysfunction-associated steatotic liver disease (MASLD) Continue to monitor with GI I will put in prescription for Zepbound 2.5 mg weekly which has been demonstrated that it improves MASLD Relevant Medications Tirzepatide-Weight Management (Zepbound) 2.5 MG/0.5ML solution auto-injector Other Relevant Orders CBC auto differential [1] Patient Active Problem List Diagnosis Mood disorder (CMS/HCC) Rheumatoid factor positive Folliculitis Generalized anxiety disorder Insomnia Moderate major depression, single episode (CMS/HCC) Morbid obesity (CMS/HCC) Depressive disorder VANESSA (obstructive sleep apnea) Dyspnea on exertion Other chest pain Numbness and tingling in both hands Restless leg syndrome Health care maintenance Diminished vision Encounter for preventive care Elevated blood pressure reading History of herpes genitalis Sexually transmitted disease counseling Degenerative tear of meniscus of left knee Erectile dysfunction Class 3 severe obesity due to excess calories with serious comorbidity and body mass index (BMI) of45.0 to 49.9 in adult Metabolic dysfunction-associated steatotic liver disease (MASLD) [2] No family history on file. [3] Current Outpatient Medications on File Prior to Visit Medication Sig Dispense Refill doxepin (SINEquan) 50 MG capsule Take 1 capsule (50 mg) by mouth at bedtime. 30 capsule 2 hydrOXYzine HCl (Atarax) 25 MG tablet Take 2 tablets (50 mg) by mouth if needed at bedtime for anxiety. 30 tablet 2 valACYclovir (Valtrex) 500 MG tablet TAKE 1 TABLET BY MOUTH TWICE DAILY FOR 3 DAYS 6 tablet 1 No current facility-administered medications on file prior to visit. documented in this encounter Miscellaneous Notes * Assessment & Plan Note - Latricia Melara MD - 02/27/2025 4:39 PM EDT Associated Problem(s): VANESSA (obstructive sleep apnea) Continue to use CPAP every night I will prescribe for patient Zepbound 2.5 mg weekly * Assessment & Plan Note - Latricia Melara MD - 02/27/2025 4:38 PM EDT Associated Problem(s): Erectile dysfunction Blood work ordered I will refer him to urologist * Assessment & Plan Note - Latricia Melara MD - 02/27/2025 4:38 PM EDT Associated Problem(s): Metabolic dysfunction-associated steatotic liver disease (MASLD) Continue to monitor with GI I will put in prescription for Zepbound 2.5 mg weekly which has been demonstrated that it improves MASLD * Assessment & Plan Note - Latricia Melara MD - 02/27/2025 4:37 PM EDT Associated Problem(s): Class 3 severe obesity due to excess calories with serious comorbidity and body mass index (BMI) of 45.0 to 49.9 in adult (HCC) Extensive counseling about healthy diet and exercise done today I will put in a prescription for Zepbound 2.5 mg weekly, I do not think this patient is a candidatefor phentermine in light of his underlying severe anxiety disorder and mood disorder Side effects of medication and contraindications were reviewed with patient documented in this encounter Plan of Treatment Upcoming Encounters Date Type Department Care Team (Late st Contact Info) Description 04/06/2025 3:30 PM EST Telemedicine [facility]INE [address] [place] [address] Latricia Palmer MD [address] [place] [address] Scheduled Orders Name Type Priority Associated Diagnoses Orde r Schedule Testosterone, Total, males (Adult), IA Lab Routine Erectile dysfunction, unspecified erectile dysfunction type Expected: 02/27/2025, Expires: 02/27/2026 TSH W/Reflex to FT4 Lab Routine Erectile dysfunction, unspecified erectile dysfunction type Expected: 02/27/2025 (Approximate), Expires: 02/27/2026 Hemoglobin A1c Lab Routine Class 3 severe obesity due to excess calories with serious comorbidity and body mass index (BMI) of 45.0 to 49.9 in adult Expected: 02/27/2025 (Approximate), Expires: 02/27/2026 Basic Metabolic Panel Lab Routine Class 3 severe obesity due to excess calories with serious comorbidity and body mass index (BMI) of 45.0 to 49.9 in adult Expected: 02/27/2025 (Approximate), Expires: 02/27/2026 Vitamin D, 25-Hydroxy, Total, Immunoassay Lab Routine Class 3 severe obesity due to excess calories with serious comorbidity and body mass index (BMI) of 45.0 to 49.9 in adult Expected: 02/27/2025 (Approximate), Expires: 02/27/2026 CBC auto differential Lab Routine Metabolic dysfunction-associated steatotic liver disease (MASLD) Expected: 02/27/2025 (Approximate), Expires: 02/27/2026 Scheduled Referrals Name Type Priority Associated Diagnoses Orde r Schedule Referral to Urology Outpatient Referral Routine Erectile dysfunction, unspecified erectile dysfunction type Expected: 02/27/2025 (Approximate), Expires: 02/27/2026 documented as of this encounter Visit Diagnoses Diagnosis VANESSA (obstructive sleep apnea)- Primary Obstructive sleep apnea (adult) (pediatric) Erectile dysfunction, unspecified erectile dysfunction type Class 3 severe obesity due to excess calories with serious comorbidity and body mass index (BMI) of 45.0 to 49.9 in adult (HCC) Metabolic dysfunction-associated steatotic liver disease (MASLD) documented in this encounter Additional Health Concerns Assessment Noted Time PHQ-9 Depression Total Score: 7 06/17/19 25 3:11 PM EST documented as of this encounter Care Teams Automatic Hemmer Relationship Specialty Start Date End Date Latricia Palmer MD [address] [place] [id number] PCP - General Family Medicine 03/12/18 documented as of this encounter
--- OUTSIDE RECORDS SUMMARY | 2025-03-01 07:29 | XMS_ITS | Encounter Summary ---
Author Organization [employer] Address [address] [place] [address] Care Team Providers Care Surgical Resident Name Role Phone Latricia Palmer MD Primary Care Provide r Encounter Details Date Type Department Care Team (Late st Contact Info) Description 07/22/2022 Orders Only [facility] [address] [place] [address] Pauline Meyer LPN Social History Tobacco Use [...] Info) Description 04/06/2025 3:30 PM EST Telemedicine [facility] [address] [place] [phone] Latricia Palmer MD [address] [place] [address] documented as of this encounter Visit Diagnoses Not on filedocumented in this encounter Care Teams Surgical Resident Relationship Specialty Start Date End Date Latricia Palmer MD [address] [place] [address] PCP - General Family Medicine 03/12/18 documented as of this encounter
--- OUTSIDE RECORDS SUMMARY | 2025-03-01 07:29 | XMS_ITS | Encounter Summary ---
Author Organization [employer] Address [address] [facility] [address] [place] [address] Care Team Providers Care Electrical Machinist Name Role Phone Latricia Palmer MD Primary Care Provide r Encounter Details Date Type Department Care Team ([facility] st Contact Info) Description 11/11/2024 Orders Only [facility]INE [address] [place] [address] Latricia Palmer MD [address] [place], [place] [phone] Social History Tobacco Use Types Packs/Day Years [...] Info) Description 04/06/2025 3:30 PM EST Telemedicine [facility] [address] [place] [address] Latricia Palmer MD [address] [place], [place] [phone] documented as of this encounter Procedures Procedure Name Priority Date/Time Associated Diagnosis Comments US ABDOMEN COMPLETE Routine 12/05/2024 3 :28 PM EDT documented in this encounter Results * US Abdomen Complete (12/05/2024 3:28 PM EDT) Anatomical Region Laterality Modality Abdomen Ultrasound 12/05/2024 3:28 PM EDT Narrative 12/05/2024 3:29 PM EDT [address] [address] Ultrasound Report Signed Patient: Cristofer Ramsey MR#: [id number] : 1985 Acct:[id number] Age/Sex: 39 / M ADM Date: 12/05/24 Loc: HO.US Attending Dr: Denise RICARDO Ordering Physician: Denise Morales Date of Service: 12/05/24 Procedure(s): US abdomen complete Accession Number(s): [id number] cc: Latricia Palmer MD; Denise Morales CLINICAL [...] 12/05/24 1529 DD/ 1528 TD/TT: 12/05/24 1528 Dictaphone Mechanic: Procedure Note Donotuseinterpreter, Image - 12/05/[address] [address] Ultrasound Report Signed Patient: Cristofer Ramsey RMR#: [id number] : 1985Acct:[id number] Age/Sex: 39 / MADM Date: 12/05/24 Loc: HO.US Attending Dr: Denise RICARDO Ordering Physician: Denise Morales Date of Service: 12/05/24 Procedure(s): US abdomen complete Accession Number(s): [id number] cc: Latricia Palmer MD; Morales ANP-C CLINICAL HISTORY: K75.81 - Nonalcoholic steatohepatitis (GUTIERREZ) [...] 12/05/24 1529 DD/ 1528 TD/TT: 12/05/24 1528 Dictaphone Mechanic: [facility] External Provider IMG US PROCEDURES Final Result documented in this encounter Visit Diagnoses Not on filedocumented in this encounter Additional Health Concerns Assessment Noted Time PHQ-9 Depression Total Score: 7 06/17/19 25 3:11 PM EST documented as of this encounter Care Teams Electrical Machinist Relationship Specialty Start Date End Date Latricia Palmer MD [address] [place] [address] PCP - General Family Medicine 03/12/18 documented as of this encounter
--- OUTSIDE RECORDS SUMMARY | 2025-03-01 07:29 | XMS_ITS | Encounter Summary ---
Author Organization [employer] Address [address] [place] [address] [address], [place] [address] Care Team Providers Care Computer Repairer Name Role Phone Latricia Palmer MD Primary Care Provide r Reason for Visit * Reason Comments Med Refill Encounter Details Date Type Department Care Team (Late st Contact Info) Description 01/11/2024 Refill [facility] [address] [place] [address] [phone] Hoang Avalos FNP Social History Tobacco Use [...] Info) Description 04/06/2025 3:30 PM EST Telemedicine [facility] [address] [place] [address] [phone] Latricia Palmer MD [address] [place] [address] [phone] documented as of this encounter Visit Diagnoses Not on filedocumented in this encounter Additional Health Concerns Assessment Noted Time PHQ-9 Depression Total Score: 15 024 3:08 PM EDT documented as of this encounter Care Teams Computer Repairer Relationship Specialty Start Date End Date Latricia Palmer MD [address] [place] [address] PCP - General Family Medicine 03/12/18 documented as of this encounter
--- OUTSIDE RECORDS SUMMARY | 2025-03-01 07:29 | XMS_ITS | Clinical Summary ---
Author Organization [facility] Address [address] [place] [address] Phone Care Team Providers Care Analytical Lab Analyst Name Role Phone Unavailable Primary Care Provider [...] 2014 Influenza Vaccines (#1) 2024 COVID-19 Vaccine (2024- season) 2025 IPV Vaccines Completed 01/16/1992, 09/30, [...]
--- OUTSIDE RECORDS SUMMARY | 2025-03-01 07:29 | XMS_ITS | Encounter Summary ---
Author Organization [facility] Address [address] [place] [address] Phone Care Team Providers Care Pattern Scratcher Name Role Phone Bandar Triana MD Primary Care Provider [phone] Encounter Details Date Type Department Care Team (Late st Contact Info) Description 04/02/2017 Conversion Encounter [facility] [address] [place] [address] Social History Tobacco Use Types Packs/Day Years [...] on filedocumented in this encounter Care Teams Pattern Scratcher Relationship Specialty Start Date End Date Bandar Triana MD [address] [place] [address] PCP - General 01/09/17 11/05/22 documented as of this encounter
--- OUTSIDE RECORDS SUMMARY | 2025-03-01 07:30 | XMS_ITS | Encounter Summary ---
Author Organization [employer] Address [address] [place] [address] Care Team Providers Care Disk Recordist Name Role Phone Latricia Palmer MD Primary Care Provide r Encounter Details Date Type Department Care Team (Latest Contact Info) Description 02/27/2025 Travel Social History Tobacco Use Types Packs/Day Years [...] Info) Description 04/06/2025 3:30 PM EST Telemedicine [facility] MEDICINE [address] [place] [address] Latricia Palmer MD [address] [place] [phone] documented as of this encounter Visit Diagnoses Not on filedocumented in this encounter Additional Health Concerns Assessment Noted Time PHQ-9 Depression Total Score: 7 06/17/19 25 3:11 PM EST documented as of this encounter Care Teams Disk Recordist Relationship Specialty Start Date End Date Latricia Palmer MD [address] [place] [address] PCP - General Family Medicine 03/12/18 documented as of this encounter
--- OUTSIDE RECORDS SUMMARY | 2025-03-01 07:30 | XMS_ITS | Clinical Summary ---
Author Organization [employer] Address [address] [place] [address] [place], [place] [address] Care Team Providers Care Hospital Unit Coordinator Name Role Phone Latricia Palmer MD Primary Care Provide r Allergies Active Allergy Reactions Criticality Noted Date Comments Clindamycin Itching,Rash Low 09/13/2020 Other reaction(s): Hives Medications * This document contains information received from the source organization and may not represent a complete record from that organization. doxepin (SINEquan) 50 MG capsuleIndicati ons:Mood disorder (CMS/HCC),Insom maddison, unspecified type Take 1 capsule (50 mg) by mouth at bedtime. 30 capsule 2 5 026 Active hydrOXYzine HCl (Atarax) 25 MG tabletIndicatio ns:Mood disorder (CMS/HCC) Take 2 tablets (50 mg) by mouth if needed at bedtime for anxiety. 30 tablet 2 5 025 Active Tirzepatide-Carter ght Management (Zepbound) 2.5 MG/0.5ML solution auto-injectorIn dications:VANESSA (obstructive sleep apnea),Class 3 severe obesity due to excess calories with serious comorbidity and body mass index (BMI) of 45.0 to 49.9 in adult (HCC),Metabolic dysfunction-ass ociated steatotic liver disease (MASLD) Inject 0.5 mL (2.5 mg) under the skin 1 (one) time per week. 2 mL 5 Active valACYclovir (Valtrex) 500 MG tablet TAKE 1 TABLET BY MOUTH TWICE DAILY FOR 3 DAYS 6 tablet 1 5 025 Discontinued Active Problems Problem Noted Date Diagnosed Date Erectile dysfunction 02/27/2025 Assessment & Plan (02/27/2025 4:38 PM EDT): Blood work ordered I will refer him to urologist Class 3 severe obesity due t o excess calories with serious comorbidity and body mass index (BMI) of 45.0 to 49.9 in adult 02/27/2025 Assessment & Plan (02/27/2025 4:37 PM EDT): Extensive counseling about healthy diet and exercise done today I will put in a prescription for Zepbound 2.5 mg weekly, I do not think this patient is a candidate for phentermine in light of his underlying severe anxiety disorder and mood disorder Side effects of medication and contraindications were reviewed with patient Metabolic dysfunction-associ ated steatotic liver disease (MASLD) 02/27/2025 Assessment & Plan (02/27/2025 4:38 PM EDT): Continue to monitor with GI I will put in prescription for Zepbound 2.5 mg weekly which has been demonstrated that it improves MASLD Degenerative tear of meniscus of left knee [...] complete STI testing Sexually transmitted disease counseling 06/24/20 25 Assessment & Plan (11/22/2024 5:49 PM EDT): [...] (obstructive sleep apnea) 10/24/2022 Assessment & Plan (02/27/2025 4:39 PM EDT): Continue to use CPAP every night I will prescribe for patient Zepbound 2.5 mg weekly Assessment & Plan (06/17/2024 4:40 PM EST): [...] disorder? Other? Patient has an appointment with organ recovery coordinator I will refer patient to cardiology Spirometry ordered Other chest pain 10/24/2022 Numbness and tingling in both hands 10/24/2022 Folliculitis 10/22/2022 Moderate major depression, single episode (CMS/H CC) 10/22/2022 Morbid obesity (CMS/HCC) 10/22/2022 Rheumatoid factor positive 09/29/2022 Mood disorder 08/04/2022 Assessment & Plan (01/16/2025 3:58 PM EDT): I will start him on doxepin 50 mg at bedtime, I reviewed side effects with patient I will refer him to [facility] plan is for him to have now [...] will be referred to new [facility] Psychiatric provider. Pt understands that appts will be via televisit, and the provider will not be an employee of [facility]. He gives permission to share PHI. [...] transfer his care to new [facility] psychiatric provider. He agrees with the [...] now transfer all prescriptions to [facility] Pharmacy for home delivery. Tolerating Wellbutrin [...] organization. Date Type Department Care Team Description 02/27/2025 3:30 PM EDT Office Visit [facility] MEDICINE [address] [place] [phone] Latricia Palmer MD VANESSA (obstructive sleep apnea) (Primary Dx); Erectile dysfunction, unspecified erectile dysfunction type; Class 3 severe obesity due to excess calories with serious comorbidity and body mass index (BMI) of 45.0 to 49.9 in adult; Metabolic dysfunction-associat ed steatotic liver disease (MASLD) 02/27/2025 Travel 02/20/2025 Patient Outreach [address] [phone] Latricia Palmer MD Pre-visit Planning (SDOH screening completed on 06/17/2024) 01/16/2025 3:15 PM EDT Telemedicine [address] [phone] Latricia Palmer MD Mood disorder ([facility]/HCC); Insomnia, unspecified type; Degenerative tear of meniscus of left knee 01/16/2025 Travel 01/09/[address] [phone] Latricia Palmer MD Medication Question 12/23/2024 Refill [facility] [address] [place], [place] [phone] Latricia Palmer MD Mood disorder (CMS/HCC) 12/07/2024 Refill [facility] [address] [place], [place] [phone] Latricia Palmer MD Depressive disorder 12/06/2024 Patient Outreach [address] [address] Latricai Palmer MD Pre-visit Planning (SDOH screening completed on 06/17/2024) from Last 3 Months Immunizations Immunization Administration [...] Mass Index 45.7 02/27/2025 3:54 PM EDT Plan of Treatment Upcoming Encounters Date Type Department Care Team (Late st Contact Info) Description 04/06/2025 3:30 PM EST Telemedicine [facility]INE [address] [place], [place] [phone] Latricia Palmer MD [address] [place], [place] [phone] Health Maintenance Due Date Last Done Comments DTaP/Tdap/Td Vaccines (6 - Tdap) 1998 07/05/1996, 07/02/1996, 01/16/1992, Additional history exists Family Planning (PISQ) 2002 Hepatitis A Vaccines (1 of 2 - Risk 2-dose series) 2006 COVID-19 Vaccine (2 - season) 2025 11/19/2020 HPV Vaccines (2 - Male 3-dose series) 03/15/2025 02/15/2025 Depression Screening 06/17/2025 06/17/2024, 06/17/19 25 SDOH Screening 06/17/2025 06/17/2024 Alcohol/Substance Use Screening 01/16/2026 01/16/2025 Disability Screening 01/16/2026 01/16/2025 Tobacco Screening 02/27/2026 02/27/2025 Lipid Panel 11/03/2028 11/04/2023, 05/14/2022 Zoster Vaccines (1 of 2) 2037 RSV Patients and Patients Aged 60 years or older (1 - 1-dose 75+ series) 2062 IPV Vaccines Completed 01/16/1992, 09/30, 04/01/1989, Additional history exists Hepatitis B Vaccines Completed 06/25/1999, 11/28/1998, 10/23/1998 Hepatitis C Screening Completed 01/15/2023 HIV Screening Completed 07/29/2023 Influenza Vaccine Completed 01/23/2025, 05/07/2021 Pneumococcal Vaccine: Pediatrics (0 to 5 Years) and At-Risk Patients (6 to 49) Years Aged Out 01/23/2025 No longer eligible based on patient's age to complete this topic HIB Vaccines Aged Out No longer eligi [...] PM EDT Narrative 12/05/2024 3:29 PM EDT [place] [address] Ultrasound Report Signed Patient: Cristofer Ramsey MR#: [id number] : 1985 Acct:[id number] Age/Sex: 39 / M ADM Date: 12/05/24 Loc: HO.US Attending Dr: Denise RICARDO Ordering Physician: Denise Morales Date of Service: 12/05/24 Procedure(s): US abdomen complete Accession Number(s): [id number] cc: Latricia Palmer MD; Denise Morales CLINICAL [...] 12/05/24 1529 DD/ 1528 TD/TT: 12/05/24 1528 Director Of Recruitment And Admissions: Procedure Note Donotuseinterpreter, Image - 12/05/2024 [place] [address] Ultrasound Report Signed Patient: Cristofer Ramsey RMR#: [id number] : 1985Acct:[id number] Age/Sex: 39 / MADM Date: 12/05/24 Loc: HO.US Attending Dr: Denise RICARDO Ordering Physician: Denise Morales Date of Service: 12/05/24 Procedure(s): US abdomen complete Accession Number(s): [id number] cc: Latricia Palmer MD; Denise Morales CLINICAL [...] 12/05/24 1529 DD/ 1528 TD/TT: 12/05/24 1528 Director Of Recruitment And Admissions: us [facility] External Provider IMG US PROCEDURES Final Result * (ABNORMAL) Lipid Panel, Standard (11/04/2023 12:05 PM EDT) Triglycerides 87 <150 mg/dL [facility] Comment:Desirable Triglyceri de: less than 150 mg/dLBorderline High Triglyceride 150-199 mg/dLHigh Triglyceride: 200-499 mg/dLVery High Triglyceride: greater than or equal to 5OO mg/dL Cholesterol 149 <200 mg/dL [facility] Comment:Desirable Cholestero l: less than 200 mg/dLBorderline High Cholesterol: 200-239 mg/dLHigh Cholesterol: greater than 239 mg/dL LDL Cholesterol Calculated 96 <100 mg/dL [facility] Comment:Desirable LDL: less than 100 mg/dLNear Optimal/Above Optimal LDL: 110- 129 mg/dLBorderline High LDL: 130-159 mg/dLHigh LDL: 160-189 mg/dLVery High LDL: greater than or equal to 190 mg/dL HDL Cholesterol 36(L) >40 mg/dL [facility] Comment:Desirable HDL: great er than 40 mg/dL Note: This HDL assay may give artificially low results in patients with liver disease. Blood Venous blood specimen / Unknown 11/04/2023 12:05 PM EDT 11/04/2023 1:59 PM EDT us Latricia Melara MD LAB BLOOD ORDERABLES Final Result Performing Organization Address City/[facility]/ZIP Co de Phone Number [facility] [address] [place] [address] [phone] * HIV-1/2 Antigen and Antibodies, Fourth Generation, with Reflexes (07/29/2023 4:15 PM EST) HIV AB/AG Nonreactive Nonreactive [facility] Comment:HIV-1 p24 Ag and/or HIV-1/HIV-2 Ab not detected.A test result that is nonreactive does not exclude thepossibility of exposure to or infection with HIV-1 and/orHIV-2. Nonreactive results in this assay for individualswith prior exposure to HIV-1 and/or HIV-2 may be due toantigen and antibody levels that are below the limit ofdetection of this assay.The [employer] HIV Ag/Ab Combo assay result andsupplemental assay results should be interpreted inconjunction with the patient's clinical presentation,history and other laboratory results. If the results areinconsistent with clinical evidence, additional testing issuggested to confirm the result. 07/29/2023 4:15 PM EST 07/29/2023 4:16 PM EST us Generic External Data Provider LAB BLOOD ORDERAB LES Final Result Performing Organization Address City/[facility]/ZIP Co de Phone Number [facility] [address] [place] [address] [phone] Hepatitis Panel, General (01/15/2023 12:26 PM EDT) Hepatitis A IgM Nonreactive Nonreactive [facility] Comment:IgM antibodies to MATA V not detected; does not exclude earlyacute or recovered HAV infection. ~Hepatitis B Surface Antibody NONREACTIVE Nonreactive [facility] Comment:Nonreactive: < 8.00 mIU/mL Hepatitis B Core Antibody Nonreactive Nonreactive [facility] Hepatitis C Antibody Nonreactive Nonreactive [facility] Comment:Antibodies to HCV no t detected; does not exclude early acuteHCV infection. Hepatitis B Surface Ag Negative Negative [facility] 01/15/2023 12:2 6 PM EDT 01/15/2023 12:36 PM EDT us [facility] External Provider LAB BLO OD ORDERABLES Final Result [facility] [address] [place] [address] [phone] from Last 3 Months or Most Recently Relevant to Health Maintenance Insurance * Guarantor: Cristofer Ramsey Account Type Relation to Patient Date of Phone Billing Address Personal/Family Self [address] [place] [address] [facility] PPO * Guarantor: Cristofer Ramsey Account Type Relation to Patient Date of Phone Billing Address Personal/Family Self [address] [place] [address] * Guarantor: Cristofer Ramsey Account Type Relation to Patient Date of Phone Billing Address Personal/Family Self [address] [place] [address] Care Teams Hospital Unit Coordinator Relationship Specialty Start Date End Date Latricia Palmer MD [address] [place] [phone] PCP - General Family Medicine 03/12/18
--- OUTSIDE RECORDS SUMMARY | 2025-03-01 07:30 | XMS_ITS | Encounter Summary ---
Author Organization [employer] Address [address] [place] [address] [address], [place] [address] Care Team Providers Care Sizing Machine Operator Name Role Phone Latricia Palmer MD Primary Care Provide r Reason for Visit * Reason Comments Med Refill Encounter Details Date Type Department Care Team (Late st Contact Info) Description 09/30/2023 Refill [facility] MEDICINE [address] [place] [address] [phone] Hoang Avalos FNP Social History Tobacco Use [...] Info) Description 04/06/2025 3:30 PM EST Telemedicine [facility] MED[facility]INE [address] [place] [address] [phone] Latricia Palmer MD [address] [place] [address] [phone] documented as of this encounter Visit Diagnoses Not on filedocumented in this encounter Additional Health Concerns Assessment Noted Time PHQ-9 Depression Total Score: 7 08/31/19 24 2:48 PM EDT documented as of this encounter Care Teams Sizing Machine Operator Relationship Specialty Start Date End Date Latricia Palmer MD [address] [facility] [place] [address] PCP - General Family Medicine 03/12/18 documented as of this encounter
[2025-03-01 07:48] LABS: MANUAL DIFF FLAG NO
[2025-03-01 08:21] LABS: Hematocrit 45.6 % (42.0-52.0); Hemoglobin 14.8 g/dl (14.0-18.0); Imm Gran Abs Auto 0.07 X10*3/uL (0.00-0.03); Imm Gran Pct Auto 0.7 % (0.0-0.4); Lymphocytes Absolute Auto 2.2 X10*3/uL (1.2-4.9); Mean Corpuscular HGB Conc 32.5 g/dl (31.0-36.0); Mean Corpuscular Hemoglobin 25.6 pg (27.0-33.0); Mean Corpuscular Volume 78.8 fL (80.0-98.0); NRBC Abs Auto 0.000 X10*3/uL (0.0-0.012); NRBC Pct Auto 0.0 /100WBC (0.0-0.2); Platelet Count 365 X10*3/uL (160-400); Red Blood Count 5.79 X10*6/uL (4.60-5.80); White Blood Count 10.6 X10*3/uL (4.8-10.8)
[2025-03-01 09:11] LABS: Alanine Aminotransferase 73 U/L (0-40); Albumin Level 4.7 g/dL (3.5-5.0); Alkaline Phosphatase 70 U/L (39-117); Anion Gap 13 (12-20); Aspartate Amino Transferase 35 U/L (5-37); Blood Urea Nitrogen 13 mg/dL (9-16); Calcium 9.2 mg/dL (8.4-10.2); Carbon Dioxide 24 mmol/L (22-29); Chloride 108 mmol/L (96-108); Estimated Glomerular Filt Rate > 60; Potassium 4.0 mmol/L (3.3-5.1); Sodium 141 mmol/L (135-145); Total Protein 7.2 g/dL (6.5-8.0)
[2025-03-01 09:18] LABS: HBS Num1 1.12 mIU/mL (0-7.99); HBc Num1 0.05 S/CO (0.00-0.79); HBsAGNum1 0.33 S/CO (0.00-0.99); HIV Num 1 0.06 S/CO (0.00-0.99); Hepatitis A Antibody IgM 0.15 Index (0-0.79); Hepatitis B Surface Antigen Negative (Negative); ~HepC Num1 0.14 S/CO (0.00-0.79); ~Hepatitis A Antibody IgM Nonreactive (Nonreactive); ~Hepatitis B Surface Antibody NONREACTIVE (Nonreactive); ~Hepatitis C Antibody Nonreactive (Nonreactive)
[2025-03-01 09:27] LABS: Ferritin 127 ng/mL (20-250)
[2025-03-06 09:05] LABS: Phosphatidylethanol 16:0-18:2 NEGATIVE
[2025-03-06 09:06] LABS: Phosphatidylethanol 16:0-18:1 NEGATIVE
== END 2025-03-01 07:28 | disposition home or self-care (01) ==
LOC: HO.LAB 07:27
PROVIDERS: PCP Internal Medicine; Visit Provider Nurse Practitioner
DX: E66.813 Obesity, class 3 (principal); Z68.42 Body mass index [BMI] 45.0-49.9, adult; K76.0 Fatty (change of) liver, not elsewhere classified; N52.9 Male erectile dysfunction, unspecified; R74.01 Elevation of levels of liver transaminase levels; Z13.1 Encounter for screening for diabetes mellitus; Z51.81 Encounter for therapeutic drug level monitoring; Z13.29 Encounter for screening for other suspected endocrine disorder
CPT/HCPCS: 36415; 80048; 80076; 80321; 82306; 82390; 82728; 83036; 84403; 84443; 85025; 86015; 86381; 86704; 86706; 86709; 86803; 87340; 87389

== ENCOUNTER 2025-03-09 16:26 | Outpatient (AMB) | payer BC, SELFPAY ==
[2025-03-09 16:30] VITALS: BP 136/73; PULSE 90; BMI 44.9
--- NOTE | 2025-03-09 16:30 | A.OFFVIS_ITS ---
Vital Signs 03/09/25 16:30 Height 5 ft 7 in Weight 286 lb 9.615 oz BMI 44.9 BP 136/73 Blood Pressure Location Lt brachial Position Sitting Pulse 90 Intake Visit Reasons: 4 week f/u transmainitis Intake Note: Cristofer returns to in office follow up for lab results. CC: Patient denies having any GI symptoms today, Commercial Loan Assistant Required: No Accompanied by: Self / Same As Patient Allergies clindamycin (CLINDAMYCIN) Allergy (Intermediate, Verified 02/02/25 16:22) SWELLING HPI HPI 4 week f/u transmainitis: Details: Assessment & Plan (1) GUTIERREZ (nonalcoholic steatohepatitis): Comment: Baseline labs 01/15/23 WBC 9.4 Hgb 15.0 Hct 46.2 Plt Count 341 Estimated GFR > 60 Total Bilirubin 0.8 AST 69 H ALT 87 H Alkaline Phosphatase 51 Hepatitis A IgM Ab Nonreactive Hep Bs Antigen Negative Hep Bs Antibody NONREACTIVE Hep B Core Total Ab Nonreactive Hepatitis C Ab (EIA) Nonreactive Anti-Mitochondrial Ab NEGATIVE Anti-Smooth Muscle Ab <20 Hemochromatosis screen was negative ULTRASOUND OF THE ABDOMEN WITH ELASTOGRAPHY 08/25/23 (F0-F1 CURRENT LABS 07/29/23 16:15 Ferritin 365 H Total Bilirubin 0.5 Direct Bilirubin 0.2 GGT 41 AST 34 ALT 68 H Alkaline Phosphatase 55 Ceruloplasmin 39 H HIV 1&2 Ab/P24 Ag 4thGn Nonreactive ULTRASOUND OF THE ABDOMEN WITH ELASTOGRAPHY 08/25/23 (F0-F1) IMPRESSION: * Liver is diffusely hyperechoic. Findings are consistent with steatosis. No evidence of focal liver lesion. * Shear wave liver elastography reveals a median stiffness of 1.65 m/s (reference: normal median stiffness is 1.3 m/s or less). In the absence of other known clinical signs, this rules out compensated advanced chronic liver disease Code(s): K75.81 - Nonalcoholic steatohepatitis (GUTIERREZ) Category: Medical (2) Morbid obesity: Code(s): E66.01 - Morbid (severe) obesity due to excess calories Category: Medical (3) Transaminitis: Comment: Baseline labs 01/15/23 WBC 9.4 Hgb 15.0 Hct 46.2 Plt Count 341 Estimated GFR > 60 Total Bilirubin 0.8 AST 69 H ALT 87 H Alkaline Phosphatase 51 Hepatitis A IgM Ab Nonreactive Hep Bs Antigen Negative Hep Bs Antibody NONREACTIVE Hep B Core Total Ab Nonreactive Hepatitis C Ab (EIA) Nonreactive Anti-Mitochondrial Ab NEGATIVE Anti-Smooth Muscle Ab <20 CURRENT LABS ULTRASOUND Code(s): R74.01 - Elevation of levels of liver transaminase levels Category: Medical Plan - The patient is a 39 year old male presenting with liver enzyme elevation and concern over progression of fatty liver disease. - Documented increase in liver enzymes, with recent ultrasound indicating severe fatty liver infiltration, where prior was mild. - Gained 7 pounds over a year, contributing to existing overweight, possibly impacting liver function. - Seroquel discontinued for a month due to concerns about liver health, and no known hepatitis or significant alcohol use reported. Given the severity of the rise since 2023 with only a 7 lb weight gain (although he felt he gained 20 lb since starting the Seroquel overall) I think we need to repeat a few parameters such as the hepatitis AB C and HIV screens along with the autoimmune markers. I will also add a ceruloplasmin. It is entirely possible that this is morbid obesity layered on top of Seroquel toxicity. He has been off of the Seroquel for about a month so if this was the driving underlying factor this should show in the repeat labs today. He has random glucose was only 100 so I do not think diabetes isn't underlying concern. (He has developed a feeling of pressure discomfort over the past year in the RUQ area. The discomfort is always present and does not change during the day. He would not describe it exactly his pain. He can not identify exacerbating or remitting factors, not effected by eating or BM and he is s/p ana. Some lower back pain upon awakening, no other concerns, no CIC or diarrhea. No trauma to the area. ) Return office visit in 4 weeks Orders: Orders Mitochondrial Antibody Today R74.01 - Elevation of levels of liver transaminase levels Ceruloplasmin Today R74.01 - Elevation of levels of liver transaminase levels Liver Panel Today R74.01 - Elevation of levels of liver transaminase levels Smooth Muscle Antibody Today R74.01 - Elevation of levels of liver transaminase levels TSH reflex Free T4 Today R74.01 - Elevation of levels of liver transaminase levels Phosphatidylethanol, Blood Today R74.01 - Elevation of levels of liver transaminase levels Hepatitis A,B,C Profile Today R74.01 - Elevation of levels of liver transaminase levels HIV Ab/Ag Today R74.01 - Elevation of levels of liver transaminase levels Ferritin Today R74.01 - Elevation of levels of liver transaminase levels LABS: Laboratory Tests 03/01/25 07:46 Ferritin 127 Total Bilirubin 0.6 Direct Bilirubin 0.2 AST 35 ALT 73 H Alkaline Phosphatase 70 Ceruloplasmin 31 H Anti-Mitochondrial Ab NEGATIVE Anti-Smooth Muscle Ab 21 H PEth 16:0/18.1 (POPEth) NEGATIVE Hepatitis A IgM Ab Nonreactive Hep Bs Antigen Negative Hep Bs Antibody NONREACTIVE Hep B Core Total Ab Nonreactive Hepatitis C Ab (EIA) Nonreactive HIV 1&2 Ab/P24 Ag 4thGn Nonreactive Laboratory Tests 10/06/24 16:42 AST 63 H ALT 113 H ULTRASOUND OF THE ABDOMEN 12/05/2024 Findings: The visualized pancreas head is normal. Remaining pancreas is obscured by bowel gas. The visualized aorta and inferior vena cava are normal caliber, atherosclerotic changes of mid to distal aorta, proximal aorta is not seen. The liver is enlarged, right lobe length is 20.6 cm. Markedly increased echogenicity of the liver parenchyma, the posterior and superior aspect of the liver are not well visualized, diaphragm is mostly obscured. No large focal lesion is seen. No intrahepatic bile duct dilatation. The common duct is not visualized. Status post cholecystectomy. The main portal vein is patent with antegrade flow. The right kidney upper and lower poles are mostly obscured by shadowing, grossly normal, 10.7 cm in length. The left kidney upper pole is obscured by bowel gas, otherwise normal, 12.1 cm in length. The spleen is mostly obscured by rib and gas shadows, not enlarged, 10.9 cm in length. No free fluid in the abdomen. Impression: Hepatomegaly with severe steatosis. TODAY'S VISIT [facility] [place] Medical History (Updated 03/09/25 @ 16:44 by Denise Morales, ANP-C) Transaminitis Obesity BMI 39.0-39.9,adult Elevated ferritin DJD (degenerative joint disease) Anxiety Morbid obesity Depression Sleep apnea Surgical History S/P medial meniscus repair of left knee Hx of knee surgery Hx of cholecystectomy History of tonsillectomy Family History Mother Diabetes Arthritis Father No problems noted. Brother No problems noted. Brother No problems noted. Sister No problems noted. Sister No problems noted. Son ADHD Son No problems noted. Daughter No problems noted. Daughter No problems noted. 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 Review of Systems Const Denies fatigue, Denies fever(s), Denies night sweats, Denies poor appetite and Denies weight loss Eyes Reports requires corrective lenses ENT Reports Normal hearing present, Denies dental pain, Denies dysphagia, Denies hearing loss, Denies mouth pain, Denies odynophagia, Denies throat swelling, Denies tongue swelling and Reports other (Dentition adequate) GI Details: Denies abdominal pain, Denies melena, Denies bloating, Denies hematochezia, Denies constipation, Denies GI cramping, Denies dysphagia, Denies excessive flatus, Denies early satiety, Denies heartburn, Denies diarrhea, Denies nausea, Denies odynophagia, Denies vomiting and Denies hematemesis Skin/Breast Denies pruritus, Denies lesions, Denies rash and Denies jaundice Neuro Reports Normal hearing present and Denies Abnormal speech present Endo Denies fatigue Aller/Immun Denies throat swelling and Denies tongue swelling Physical Exam Vital Signs: Last Vital Signs Pulse 90 03/09/25 16:30 BP 136/73 03/09/25 16:30 BMI result Body Mass Index 44.9 Const General: cooperative, no acute distress, well developed and well groomed Nutritional Appearance: well nourished, obese and overweight Orientation/consciousness: oriented to person, oriented to place and oriented to time Limitations: No language barrier, ambulation with cane, ambulation with walker and wheelchair HEENT Head: Yes normocephalic and Yes atraumatic Eyes General: appearance normal, both eyes and all related structures Pupils: Equal, round and reactive pupils present Neck Neck: Yes normal visual inspection and Yes no lymphadenopathy Thyroid: Thyroid normal Resp Effort & Inspection: normal respiratory effort and able to speak in complete sentences Auscultation: clear to auscultation bilaterally Cardio Rate: regular rate Rhythm: regular rhythm Heart sounds: Normal, physiologic split S2 sound present Peripheral pulses: radial pulses present and posterior tibial pulses present GI Inspection: No distended and No Abdominal panniculus present Palpation (GI): Soft to palpation, nontender, no guarding, not rigid, No hepatosplenomegaly present and Hepatosplenomegaly present Percussion: Yes normal to percussion Auscultation: normal bowel sounds Rectal Exam - Male: Yes deferred Skin General skin exam: no rashes or lesions noted, turgor normal, skin not dry, no jaundice, No spider nevi and no striae Rashes: no rashes Nails: normal Neuro General: oriented to person, oriented to place and oriented to time Cranial nerves: Yes Equal, round and reactive pupils present and Yes Normal hearing present Speech: No Abnormal speech present Extrem General: Yes normal to inspection, No clubbing, No cyanosis and No edema Psych Thought process: Normal thought process present and not confabulating Thought content: Normal thought content present Insight: Good insight present (Psych) Judgement: Good judgement present (Psych) Results Reviewed Results Reviewed: Laboratory Tests 03/01/25 07:46 Ferritin 127 Total Bilirubin 0.6 Direct Bilirubin 0.2 AST 35 ALT 73 H Alkaline Phosphatase 70 Ceruloplasmin 31 H Anti-Mitochondrial Ab NEGATIVE Anti-Smooth Muscle Ab 21 H PEth 16:0/18.1 (POPEth) NEGATIVE Hepatitis A IgM Ab Nonreactive Hep Bs Antigen Negative Hep Bs Antibody NONREACTIVE Hep B Core Total Ab Nonreactive Hepatitis C Ab (EIA) Nonreactive HIV 1&2 Ab/P24 Ag 4thGn Nonreactive Laboratory Tests 10/06/24 16:42 AST 63 H ALT 113 H ULTRASOUND OF THE ABDOMEN 12/05/2024 Findings: The visualized pancreas head is normal. Remaining pancreas is obscured by bowel gas. The visualized aorta and inferior vena cava are normal caliber, atherosclerotic changes of mid to distal aorta, proximal aorta is not seen. The liver is enlarged, right lobe length is 20.6 cm. Markedly increased echogenicity of the liver parenchyma, the posterior and superior aspect of the liver are not well visualized, diaphragm is mostly obscured. No large focal lesion is seen. No intrahepatic bile duct dilatation. The common duct is not visualized. Status post cholecystectomy. The main portal vein is patent with antegrade flow. The right kidney upper and lower poles are mostly obscured by shadowing, grossly normal, 10.7 cm in length. The left kidney upper pole is obscured by bowel gas, otherwise normal, 12.1 cm in length. The spleen is mostly obscured by rib and gas shadows, not enlarged, 10.9 cm in length. No free fluid in the abdomen. Impression: Hepatomegaly with severe steatosis. Assessment & Plan Assessment & Plan (1) GUTIERREZ (nonalcoholic steatohepatitis): Comment: Baseline labs 01/15/23 WBC 9.4 Hgb 15.0 Hct 46.2 Plt Count 341 Estimated GFR > 60 Total Bilirubin 0.8 AST 69 H ALT 87 H Alkaline Phosphatase 51 Hepatitis A IgM Ab Nonreactive Hep Bs Antigen Negative Hep Bs Antibody NONREACTIVE Hep B Core Total Ab Nonreactive Hepatitis C Ab (EIA) Nonreactive Anti-Mitochondrial Ab NEGATIVE Anti-Smooth Muscle Ab <20 Hemochromatosis screen was negative ULTRASOUND OF THE ABDOMEN WITH ELASTOGRAPHY 08/25/23 (F0-F1 CURRENT LABS Laboratory Tests 03/01/25 07:46 Ferritin 127 Total Bilirubin 0.6 Direct Bilirubin 0.2 AST 35 ALT 73 H Alkaline Phosphatase 70 Ceruloplasmin 31 H Anti-Mitochondrial Ab NEGATIVE Anti-Smooth Muscle Ab 21 H PEth 16:0/18.1 (POPEth) NEGATIVE Hepatitis A IgM Ab Nonreactive Hep Bs Antigen Negative Hep Bs Antibody NONREACTIVE Hep B Core Total Ab Nonreactive Hepatitis C Ab (EIA) Nonreactive HIV 1&2 Ab/P24 Ag 4thGn Nonreactive Laboratory Tests 10/06/24 16:42 AST 63 H ALT 113 H ULTRASOUND OF THE ABDOMEN 12/05/2024 Findings: The visualized pancreas head is normal. Remaining pancreas is obscured by bowel gas. The visualized aorta and inferior vena cava are normal caliber, atherosclerotic changes of mid to distal aorta, proximal aorta is not seen. The liver is enlarged, right lobe length is 20.6 cm. Markedly increased echogenicity of the liver parenchyma, the posterior and superior aspect of the liver are not well visualized, diaphragm is mostly obscured. No large focal lesion is seen. No intrahepatic bile duct dilatation. The common duct is not visualized. Status post cholecystectomy. The main portal vein is patent with antegrade flow. The right kidney upper and lower poles are mostly obscured by shadowing, grossly normal, 10.7 cm in length. The left kidney upper pole is obscured by bowel gas, otherwise normal, 12.1 cm in length. The spleen is mostly obscured by rib and gas shadows, not enlarged, 10.9 cm in length. No free fluid in the abdomen. Impression: Hepatomegaly with severe steatosis. Code(s): K75.81 - Nonalcoholic steatohepatitis (GUTIERREZ) Category: Medical (2) Morbid obesity: Code(s): E66.01 - Morbid (severe) obesity due to excess calories Category: Medical Plan (He has developed a feeling of pressure discomfort over the past year in the RUQ area. The discomfort is always present and does not change during the day. He would not describe it exactly his pain. He can not identify exacerbating or remitting factors, not effected by eating or BM and he is s/p ana. Some lower back pain upon awakening, no other concerns, no CIC or diarrhea. No trauma to the area. ) - The patient is a 39-year-old male presenting with concerns primarily related to liver health, weight management, and episodes of cold sores. - Notable past medical history includes nonalcoholic fatty liver disease identified through elevated liver enzymes and confirmed by ultrasound. This has been managed by lifestyle changes leading to a weight reduction of approximately 14 pounds. - Laboratory results have shown an improvement in liver enzyme levels from 63 to 35 and 113 to 73, aligning with weight loss. - The patient reports episodic cold sores since adolescence, triggered occasionally by influenza, and was managed with Valacyclovir, with concern about potential long-term effects on liver health. - Recent medical advice has included the possibility of using Tirzepatide for managing pre-diabetes and weight-related liver issues, pending insurance approval. - Keep up the good work with your weight loss efforts as they are clearly beneficial for your liver. - Follow up in six months to reassess liver function and discuss further liver health strategies. - Explore insurance coverage options for Tirzepatide with your primary doctor to manage pre-diabetes and support liver health. Coding Level of Care Code Est Pt Level 4 (92718) Diagnoses GUTIERREZ (nonalcoholic steatohepatitis) K75.81 Morbid obesity E66.01
== END 2025-03-09 18:59 | disposition home or self-care (01) ==
LOC: HO.HGI 16:27
PROVIDERS: PCP Internal Medicine; Visit Provider Nurse Practitioner
DX: K75.81 Nonalcoholic steatohepatitis (NASH) (principal); E66.01 Morbid (severe) obesity due to excess calories
CPT/HCPCS: 99214

== ENCOUNTER 2025-05-07 12:07 | Emergency (ER) | payer BC, SELFPAY ==
[2025-05-07 12:14] VITALS: BP 160/92; PULSE 105; O2SAT 96
--- NOTE | 2025-05-07 12:15 | ED_ITS ---
HPI - Back Pain/Injury General Chief Complaint: Back Pain/Injury Stated Complaint: LOWER BACK SPASMS Time Seen by Provider: 05/07/25 15:32 Source: patient and old records reviewed Mode of arrival: ambulatory Limitations: no limitations History of Present Illness ED Provider: Sheila Person PA-C HPI Narrative: This is a 40-year-old male, with a past medical history of GUTIERREZ, DJD, depression , anxiety, VANESSA, obesity, who presents emergency department with complaints of low back pain for the last week. Patient reports that 1 week ago he noticed low back pain. He states that this pain worsened after bending over in the shower. He immediately felt severe pain in his low back. He states that the pain starts in his low back and radiates across his low back. Pain does not radiate down hi s legs. No numbness, tingling or weakness. He states that he had difficulty with ambulation due to pain in his back initially on arrival, however states that since he has been in the emergency room for several hours waiting for a room to become available he is able to walk now. He denies any fevers, chills, chest pain, shortness of breath, abdominal pain, current nausea, vomiting or diarrhea. No urinary or bowel retention or incontinence. No history of back problems in the past. No hx of IVDA. No other complaints or concerns at this time. MD elicited complaint: back pain Pertinent past history: prior back pain Timing: constant Radiation: none Exacerbating factors: none Relieving factors: none Associated symptoms: denies other symptoms Related Data Home Medications ?Medication ?Instructions ?Recorded ?Confirmed hydroxyzine HCl 25 mg tablet 25 - 50 mg PO Q8H PRN anx iety 04/14/22 04/21/24 bupropion HCl 200 mg tablet,12 hr 200 mg PO QAM sustained-release doxepin 50 mg capsule 50 mg PO BEDTIME 03/09/25 Previous Rx's ?Medication ?Instructions ?Recorded acetaminophen 500 mg tablet 1,000 mg (2 x 500 mg) PO Q 6H PRN 05/07/25 (Tylenol Extra Strength) pain #30 tabs ibuprofen 600 mg tablet 600 mg PO Q6H PRN pain #30 t abs 05/07/25 lidocaine 5 % topical patch 1 patch topical DAILY #30 ea 05/07/25 prednisone 20 mg tablet 40 mg (2 x 20 mg) PO DAILY 4 days 05/07/25 #8 tabs Allergies Allergy/AdvReac Type Severity Reaction Status Date / Time clindamycin (CLINDAMYCIN) Allergy Intermediate SWELLING Verified 05/07/25 12:18 Review of Systems Review of Systems: Constitutional : No Fever, No Chills ENT/Mouth : No sore throat, No Rhinorrhea Eyes: No Eye Pain, No Swelling, No Redness Cardiovascular : No Chest Pain, No SOB Respiratory : No Cough, No Sputum Gastrointestinal : No Nausea, No Vomiting, No Diarrhea, No abdominal Pain Genitourinary : No Dysuria, No Hematuria Musculoskeletal : No joint pain, No Myalgias, No Joint Swelling Skin : No Skin Lesions Neuro : No Weakness, No Numbness, No Headache All other systems reviewed and are negative Yes all other systems are reviewed and are negative Constitutional: Constitutional: Reports as per [facility] Past Medical History Medical History (Updated 05/08/25 @ 00:00 by Background Dameghan) Transaminitis Obesity BMI 39.0-39.9,adult Elevated ferritin DJD (degenerative joint disease) Anxiety Morbid obesity Depression Sleep apnea Surgical History S/P medial meniscus repair of left knee Hx of knee surgery Hx of cholecystectomy History of tonsillectomy Family History Family History Mother Diabetes Arthritis Father No problems noted. Brother No problems noted. Brother No problems noted. Sister No problems noted. Sister No problems noted. Son ADHD Son No problems noted. Daughter No problems noted. Daughter No problems noted. 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 Physical Exam Vital Signs: Vital Signs: Last Vital Signs Temp 97.8 F 05/07/25 15:36 Pulse 98 05/07/25 15:36 Resp 20 05/07/25 15:36 BP 138/74 05/07/25 15:36 Pulse Ox 97 05/07/25 15:36 O2 Del Method Room Air 05/07/25 15:36 BMI result Body Mass Index 40.7 Const: General: cooperative, comfortable and no acute distress Orientation/consciousness: patient oriented x3 Limitations: no limitations HEENT: Head: Yes normal to inspection, Yes normocephalic and Yes atraumatic Ears: hearing grossly normal bilaterally General nose exam: Normal external nose present Face and sinus: Yes normal facial exam Mouth: Normal oral and palatal mucosa present, oropharynx normal and moist mucous membranes Throat: Yes posterior oropharynx normal Eyes: General: appearance normal, both eyes and all related structures Eyelids: Yes eyelids normal Conjunctivae: conjunctivae normal Sclerae: sclerae normal Pupils: Equal, round and reactive pupils present EOM: EOMs intact bilaterally Neck: Neck: Yes normal visual inspection, Yes full ROM and Yes no lymphadenopathy Lymphatic: no lymphadenopathy noted Chest: Chest palpation & inspection: normal inspection of the chest Resp: Effort & Inspection: normal respiratory effort and able to speak in complete sentences Auscultation: clear to auscultation bilaterally, no crackles, no rales, no rhonchi and no wheezes Cardio: Rate: regular rate Rhythm: regular rhythm Heart sounds: S1 normal heart sound present and S2 normal heart sound present GI: Other: Abdomen is soft, nontender, nondistended Inspection: Yes normal to inspection Back/Spine/Pelvis: Other: No midline spine tenderness on examination. Patient with diffuse tenderness throughout the bilateral lumbar musculature. Negative SLR BL. Strength 5/5 in lower extremities. Sensation intact. Skin: General skin exam: no rashes or lesions noted Trauma: no lacerations or abrasions Wounds: no wounds Neuro: General: patient oriented x3 and moves all extremities Cranial nerves: Yes Equal, round and reactive pupils present Extrem: General: Yes normal to inspection Right upper extremity: normal to inspection Left upper extremity: normal to inspection Right lower extremity: normal to inspection Left lower extremity: normal to inspection Course Course Course Narrative: This is a Rapid Medical Exam performed in triage by Verna Sheikh PA-C. Full HPI, ROS and PE to be performed by primary ED provider. 40-year-old male with a past medical history of GUTIERREZ, DJD, depression, anxiety, VANESSA, obesity, presenting to the ED via EMS c/o low back pain x2 week radiating to bilateral hips - worse today after bending over in the shower. Denies fever, incontinence /retention, known trauma PE: in wheelchair. Appears very uncomfortable. Plan: pain control Medications Administered Discontinued Medications Generic Name Dose Route Start Last Admin Trade Name Bernardo PRN Reason Stop Dose Admin Acetaminophen 975 mg 05/07/25 15:48 05/07/25 15:57 Acetaminophen 325 Mg Tablet PO 05/07/25 15:49 975 mg ONCE ONE Administration Diazepam 2 mg 05/07/25 15:48 05/07/25 15:57 Diazepam 2 Mg Tablet PO 05/07/25 15:49 2 mg ONCE ONE Administration Ketorolac Tromethamine 30 mg 05/07/25 15:47 05/07/25 15:58 Ketorolac Tromethamine 30 Mg/Ml Vial IM 05/07/25 15:48 30 mg ONCE ONE Administration Prednisone 50 mg 05/07/25 15:47 05/07/25 15:57 Prednisone 10 Mg Tablet PO 05/07/25 15:48 50 mg ONCE ONE Administration Medical Decision Making Medical Decision Making MDM Narrative: This is a 40-year-old male who presents emergency department with concerns of back pain. On arrival, vital signs within normal limits. Initially brought in via EMS and was unable to walk however given prolonged wait times in the emergency room, he has been able to walk. No history of IVDA. This patient presents with back pain most consistent with muscle spasms. Differential diagnoses includes lumbago versus musculoskeletal spasm / strain versus sciatica.No back pain red flags on history or physical. Presentation not consistent with malignancy (lack of history of malignancy, lack of B symptoms), fracture (no trauma, no bony tenderness to palpation), cauda equina syndrome (no bowel or urinary incontinence/retention, no saddle anesthesia, no distal weakness), pyelonephritis (afebrile, no CVAT, no urinary symptoms). Given the clinical picture, no indication for imaging at this time. Will medicate with Toradol, Tylenol, Valium, and prednisone. We will closely monitor pending symptomatic improvement. >> Pt feeling much better upon re-evaluation. He is standing in his room, eager for discharge. Discussed strict return precautions, and advised to f/u with PCP. He is no doxepin, therefore discussed risks/benefits with muscle relaxant rx to go home with. I discussed with patient it would be best to continue ibuprofen/tylenol, lidocaine patches and prednisone. He is agreeable to this. Given return precautions. Pt stable for d.c. Differential Diagnosis Differential Diagnoses: The differential diagnosis associated with the presentation includes See above Discharge Plan Discharge Clinical Impression: Back pain, Muscle spasm Patient Disposition: Home, Self-Care Instructions: Acute Low Back Pain (ED), Muscle Spasm (ED), Back Pain (ED) Additional Instructions: You were seen in the emergency department due to back pain. You likely have a muscle spasm that caused your back to lock up today. Please continue taking prednisone, you already received a dose today therefore resume this tomorrow. Alternate between ibuprofen and or Tylenol. Take Tylenol 1000 mg every 8 hours. 2 hours later, take ibuprofen 600 mg. Your next dose of Tylenol will be due at midnight. You can also take ibuprofen at midnight as well. Lidocaine patches can also help for your back pain, do not apply heat or ice directly to the area. Moist heat can also help with your symptoms. Gentle stretching, massage can also help. Follow-up with your primary care physician regarding this visit. Physical therapy can be very beneficial for your symptoms. If any new or worsening symptoms occur including but not limited to worsening pain, severe chest pain, shortness of breath, loss of bladder or bowel control, numbness or tingling into your groin, please seek emergent care. Prescriptions: New acetaminophen [Tylenol Extra Strength] 500 mg tablet 1,000 mg PO Q6H PRN (Reason: pain) Qty: 30 0RF prednisone 20 mg tablet 40 mg PO DAILY 4 Days Qty: 8 0RF Rx Instructions: start 05/08 ibuprofen 600 mg tablet 600 mg PO Q6H PRN (Reason: pain) Qty: 30 0RF lidocaine 5 % adhesive patch,medicated 1 patch topical DAILY Qty: 30 0RF Rx Instructions: leave on most painful area for up to 12 hrs No Action hydroxyzine HCl 25 mg tablet 25 - 50 mg PO Q8H PRN (Reason: anxiety) bupropion HCl 200 mg tablet sustained-release 12 hr 200 mg PO QAM doxepin 50 mg capsule 50 mg PO BEDTIME Stand Alone Forms: Work/School Release Discharge Date/Time: 05/07/25 17:07 Print Language: Croatian
[2025-05-07 12:16] VITALS: BP 135/71; PULSE 76; RESP 18; TEMP 36.6; O2SAT 98; BMI 40.7
[2025-05-07 15:36] VITALS: BP 138/74; PULSE 98; RESP 20; TEMP 36.6; O2SAT 97
--- OUTSIDE RECORDS SUMMARY | 2025-05-07 15:37 | XMS_ITS | Clinical Summary ---
Author Organization [facility] Address [address] [place] [id number] Phone Care Team Providers Care Pizza Baker Name Role Phone Unavailable Primary Care Provider Unavailabl e Immunizations Immunization Administration Dates Next Due DT 07/05/1996 DTP 01/16/1992, 0,04/01/1989,1987,1987 Hep B, ped/adol 06/25/1999,11/28/1998,10/23/1998 MMR 10/23/1998,10/19/1989 OPV 01/16/1992, 0,04/01/1989,1987,1987 Td (adult) ([facility]), 5 Lf t etanus toxoid, PF, adsorbed [...]
--- OUTSIDE RECORDS SUMMARY | 2025-05-07 15:37 | XMS_ITS | Encounter Summary ---
Author Organization [facility] Address [address] [place] [id number] Phone Care Team Providers Care Second Language Tutor Name Role Phone Bandar Triana MD Primary Care Provider [phone] Encounter Details Date Type Department Care Team (Late st Contact Info) Description 04/02/2017 Conversion Encounter [facility] [place] [address] [place] [address] Social History Tobacco Use Types Packs/Day Years [...] on filedocumented in this encounter Care Teams Second Language Tutor Relationship Specialty Start Date End Date Bandar Triana MD [address] [place] [address] PCP - General 01/09/17 11/05/22 documented as of this encounter
== END 2025-05-07 17:07 | disposition home or self-care (01) ==
PROVIDERS: Emergency Provider Emergency Medicine; PCP Internal Medicine
DX: M54.50 Low back pain, unspecified (principal); M62.830 Muscle spasm of back; Z79.899 Other long term (current) drug therapy
CPT/HCPCS: 96372; 99283; 99284; J1885